=== PATIENT | male | born 1935 | race Caucasian/White ===

== ENCOUNTER → 2017-01-31 | Outpatient (CLI) | payer MEDICARE ==
[2017-01-31 11:12] LABS: ALT 18 U/L (21-72); AST 14 U/L (17-59); Cholesterol 172 mg/dL (<200); HDL Cholesterol 46 mg/dL (40-60)
== END | disposition home or self-care (01) ==
LOC: LABWHC1 10:07
PROVIDERS: ATTEND Internal Medicine Cardiovascular Disease
DX: E78.2 Mixed hyperlipidemia (principal)
CPT/HCPCS: 36415; 80061; 84450; 84460

== ENCOUNTER → 2018-03-30 | Outpatient (CLI) | payer MEDICARE ==
--- NOTE | 2018-03-30 14:26 | ECHOS ---
STRESS ECHOCARDIOGRAM INDICATIONS: Dizzy BASELINE HEART RATE: 63 BASELINE BLOOD PRESSURE: 145/62 MAXIMUM HEART RATE: 112 MAXIMUM BLOOD PRESSURE: 182/70 85% MPHR: 119 100% MPHR: 140 METS: 4.4 MAXIMUM STAGE REACHED: I TOTAL EXERCISE TIME: 3:49 CLINICAL INFORMATION: Baseline rhythm is sinus mechanism, rate of 63, left axis deviation, intraventricular conduction delay. Baseline blood pressure 145/62 mmHg. Patient exercised on Isael protocol for 3 minutes, 49 seconds reaching peak rate 112 beats per minute which is equal to 80% maximum predicted heart rate. Peak blood pressure 182/70 mmHg. Test was terminated due to fatigue. There was no chest pain. Electrocardiograph monitoring revealed no evidence of diagnostic ischemic ST deviation. FINDINGS: Baseline echocardiogram revealed normal wall motion. At peak exercise, there was normal wall motion augmentation with no hypokinesis or dyskinesis. CONCLUSION: 1. Nondiagnostic electrocardiograph stress testing secondary to baseline EKG abnormality. 2. Decreased exercise tolerance. 3. At the rate achieved, there was no evidence of stress-induced ischemia, although this is a nondiagnostic test secondary to the inability to achieve 85% maximum predicted heart rate. MMODL / IJN: [id number] /
== END | disposition home or self-care (01) ==
LOC: RADNMMAIN 08:58
PROVIDERS: ATTEND Family Medicine
DX: R94.31 Abnormal electrocardiogram [ECG] [EKG] (principal)
CPT/HCPCS: 93351

== ENCOUNTER → 2019-10-04 | Outpatient (CLI) | payer MEDICARE ==
[2019-10-04 17:05] LABS: Chol/HDL Ratio 2.53; LDL Cholesterol,Calculated 43.6 mg/dL (0.0-131.0); VLDL Calculation 14.4 mg/dL (5.00-40.00)
== END | disposition home or self-care (01) ==
LOC: LABWHC1 09:04
PROVIDERS: ATTEND Internal Medicine Cardiovascular Disease
DX: E78.2 Mixed hyperlipidemia (principal)
CPT/HCPCS: 36415; 80061; 84450; 84460

== ENCOUNTER → 2023-02-09 | Outpatient (CLI) | payer MEDICARE ==
[2023-02-09 17:40] LABS: ALT 9 U/L (10-49); AST 25 U/L (14-35); LDL Cholesterol,Calculated 44.4 mg/dL (0.0-131.0); VLDL Calculation 12.78 mg/dL (5.00-40.00)
== END | disposition home or self-care (01) ==
LOC: LABWHC1 10:58
PROVIDERS: ATTEND Internal Medicine Cardiovascular Disease
DX: E78.2 Mixed hyperlipidemia (principal)
CPT/HCPCS: 36415; 80061; 84450; 84460

== ENCOUNTER 2024-08-16 19:29 | Inpatient (IN) | payer MEDICARE ==
[2024-08-16 20:46] LABS: Basophils # (A) 0.03 10*3/uL (0.00-0.10); Basophils % (A) 0.2 %; HCT 34.8 % (39.6-50.0); Lymphocytes # (A) 0.41 10*3/uL (0.90-5.00); Lymphocytes % (A) 2.8 %; MCH 30.5 pg (27.0-32.0); MCHC 31.6 g/dL (32.0-37.0); MCV 96.4 fL (80.0-97.0); Mean Platelet Volume 9.9 fL (9.5-12.2); Monocytes # (A) 0.94 10*3/uL (0.20-1.00); Monocytes % (A) 6.3 %; Neutrophils # (A) 13.39 10*3/uL (1.80-7.70); Platelet Count 314 10*3/uL (140-440); RBC 3.61 10*6/uL (4.40-5.60); RDW 13.8 % (11.5-14.5); WBC 14.88 10*3/uL (4.50-10.00)
--- NOTE | 2024-08-16 20:46 | ED ---
General Adult HPI - General Chief complaint: Weakness Stated complaint: Weakness Time Seen by Provider: 08/16/24 19:32 Source: patient, EMS Mode of arrival: EMS Limitations: no limitations - History of Present Illness Initial comments: Dictation was produced using [employer] dictation software. please excuse any grammatical, word or spelling errors. Chief Complaint: 88-year-old male presents with weakness and fall History of Present Illness: Patient is a 8-year-old male presents emergency department after multiple falls today. He is presents to the ER for significant weakness. He lives at home with his brother. States that he fell twice today. They report that whenever he falls it is difficult to take him up. Sue is unsure if patient takes any anticoagulation medications or antiplatelet medications. Patient denies any symptoms at this time. Family states that he becomes shaky right before he falls. The ROS documented in this emergency department record has been reviewed and confirmed by me. Those systems with pertinent positive or negative responses have been documented in the HPI. All other systems are other negative and/or noncontributory. - Related Data Home Medications Medication Instructions Recorded Confirmed Aspirin EC [Ecotrin Low Dose] 81 mg PO DAILY 04/26/21 06/07/22 Atorvastatin [Lipitor] 40 mg PO DAILY 04/26/21 06/07/22 Enalapril [Vasotec] 10 mg PO DAILY 04/26/21 06/07/22 Gabapentin [Neurontin] 300 mg PO QID 04/26/21 06/07/22 HYDROcodone/APAP 10-325MG [[place] 1 tab PO Q6H PRN 04/26/21 06/07/22 10-325] Insulin Aspart [NovoLOG Flexpen] 11 units SQ AC-TID 04/26/21 06/07/22 Insulin Glargine,Hum.rec.anlog 20 units SQ DAILY 04/26/21 06/07/22 [Lantus Solostar Pen] Metoprolol Tartrate [Lopressor] 25 mg PO BID 04/26/21 06/07/22 Nitroglycerin Sl Tabs [Nitrostat] 0.4 mg SUBLINGUAL Q5M PRN 04/26/21 06/07/22 amLODIPine [Norvasc] 10 mg PO DAILY 04/26/21 06/07/22 glipiZIDE XL [Glucotrol XL] 10 mg PO DAILY 04/26/21 06/07/22 Albuterol Inhaler [Ventolin Hfa 2 puff INHALATION RT-QID PRN 06/07/22 06/07/22 Inhaler] Terbinafine [LamISIL] 250 mg PO DAILY 06/07/22 06/07/22 Previous Rx's Medication Instructions Recorded Ipratropium-Albuterol Nebulize 3 ml INHALATION RT-QID #120 each 06/11/22 [Duoneb 0.5 mg-3 mg/3 ml Soln] cefuroxime axetiL [Ceftin] 500 mg PO BID 7 Days #14 tab 06/11/22 Allergies Allergy/AdvReac Type Severity Reaction Status Date / Time No Known Allergies Allergy Verified 06/07/22 11:02 Review of Systems ROS Statement: Those systems with pertinent positive or pertinent negative responses have been documented in the HPI. ROS Other: All systems not noted in ROS Statement are negative. Past Medical History Past Medical History: Coronary Artery Disease (CAD), COPD, Diabetes Mellitus, Deep Vein Thrombosis (DVT), Hypertension, Myocardial Infarction (MA) Additional Past Medical History / Comment(s): unsure of exact date of MA and cardiac stent. Last Myocardial Infarction Date:: 2011 History of Any Multi-Drug Resistant Organisms: None Reported Past Surgical History: Heart Catheterization With Stent Past Anesthesia/Blood Transfusion Reactions: No Reported Reaction Date of Last Stent Placement:: 2011 Past Psychological History: Anxiety, Depression Smoking Status: Current some day smoker Past Alcohol Use History: None Reported Past Drug Use History: None Reported - Past Family History Father Additional Family Medical History / Comment(s): from prostate CA Brother(s) Family Medical History: AICD/Pacemaker Additional Family Medical History / Comment(s): prostate CA, 1 foot of colon removed r/t diverticulitis, triple bypass Mother Family Medical History: COPD, Dementia, Diabetes Mellitus Additional Family Medical History / Comment(s): of complications from DM General Exam - General Exam Comments Initial Comments: PHYSICAL EXAM: General Impression: Alert and oriented x3, not in acute distress HEENT: Normocephalic atraumatic, extra-ocular movements intact, pupils equal and reactive to light bilaterally, mucous membranes moist. Cardiovascular: Heart regular rate and rhythm Chest: Able to complete full sentences, no retractions, no tachypnea Abdomen: abdomen soft, non-tender, non-distended, no organomegaly Musculoskeletal: Pulses present and equal in all extremities, no peripheral edema Motor: no focal deficits noted Neurological: CN II-XII grossly intact, no focal motor or sensory deficits noted Skin: Abrasion to the left elbow Psych: Normal affect and mood Limitations: no limitations Course Vital Signs 08/16/24 08/16/24 08/16/24 19:30 19:54 21:00 Temperature 98.5 F Pulse Rate 79 75 80 Respiratory 18 18 18 Rate Blood Pressure 103/59 117/64 121/64 O2 Sat by Pulse 92 L 94 L 93 L Oximetry EKG Findings - EKG Comments: EKG Findings:: My EKG interpretation: Ventricular rate 76, sinus rhythm, right bundle branch block,. MS intervals 218, QRS 140, QTc 427. No MS prolongation, no QTC prolongation, no ST or T-wave changes noted. Overall, this EKG is unremarkable Medical Decision Making - Medical Decision Making Was pt. sent in by a medical professional or institution (, PA, POKER MANAGER, urgent care, hospital, or intermediate...) When possible be specific @ -No Did you speak to anyone other than the patient for history (EMS, parent, family, police, friend...)? What history was obtained from this source @ -Family at bedside as described above Did you review nursing and triage notes (agree or disagree)? Why? @ -I reviewed and agree with nursing and triage notes Were old charts reviewed (outside hosp., previous admission, EMS record, old EKG, old radiological studies, urgent care reports/EKG's, intermediate records)? Report findings @ -No old charts were reviewed Differential Diagnosis (chest pain, altered mental status, abdominal pain women, abdominal pain men, vaginal bleeding, musculoskeletal, weakness, fever, dyspnea, syncope, headache, dizziness, GI bleed, back pain, seizure, CVA, palpatations, mental health)? @ -Differential Dyspnea: Coronary syndrome, arrhythmia, tamponade, asthma, COPD, pulmonary embolism, pneumonia, pneumothorax, pulmonary effusion, anaphylaxis, diabetic ketoacidosis, flailed chest, pulmonary contusion, diaphragmatic rupture, anemia, ne uromuscular, this is not meant to be an all-inclusive list. EKG interpreted by me (3pts min.). @ -See above X-rays interpreted by me (1pt min.). @ -Chest x-ray shows pulmonary edema. Pelvis x-ray is unremarkable CT interpreted by me (1pt min.). @ -CT brain shows no acute processes U/S interpreted by me (1pt. min.). @ -None done What testing was considered but not performed or refused? (CT, X-rays, U/S, labs)? Why? @ -None What meds were considered but not given or refused? Why? @ -None Was smoking cessation discussed for >3mins.? @ -No Were there social determinants of health that impacted care today? How? (Homelessness, low income, unemployed, alcoholism, drug addiction, transport ation, low edu. Level, literacy, decrease access to med. care, longterm, rehab)? @ -No Was there de-escalation of care discussed even if they declined (Discuss DNR or withdrawal of care, Hospice)? DNR status @ -No What co-morbidities impacted this encounter? (DM, HTN, Smoking, COPD, CAD, Cancer, CVA, ARF, Chemo, Hep., AIDS, mental health diagnosis, sleep apnea, morbid obesity)? @ -Coronary artery disease, MA Was patient admitted / discharged? Hospital course, mention meds given and route, prescriptions, significant lab abnormalities, going to OR and other pertinent info. @ -88-year-old male with history of cardiac disease presents to the ER for weakness and falls. Patient well-appearing at the bedside suffered a minor abrasion to his left elbow. Patient otherwise in no acute distress physical examination is otherwise benign. Vital signs show some mild hypoxic respiratory failure patient maintained on 3 L nasal cannula. Laboratory evaluation obtained. CBC is unremarkable. Metabolic panel shows elevated BUN to creatinine ratio, troponin of 0.720. EKG shows no signs of ischemia or infarction. Patient reevaluated bedside well-appearing with no complaints. Patient will be admitted for elevated troponin, CHF and grave disability Did you discuss the management of the patient with other professionals (professionals i.e. , PA, POKER MANAGER, lab, RT, psych nurse, child welfare social worker, lawyer criminal, teacher, correction officer reformatory, correctional casework specialist)? Give summary @ -Case discussed with hospitalist for admission Was critical care preformed (if so, how long)? @ -Yes, 33 minutes for hypoxic respiratory failure Undiagnosed new problem with uncertain prognosis? @ -No Drug Therapy requiring intensive monitoring for toxicity (Heparin, Nitro, Insulin, Cardizem)? @ -No Were any procedures done? @ -No Diagnosis/symptom? Acute, or Chronic, or Acute on Chronic? Uncomplicated (without systemic symptoms) or Complicated (systemic symptoms)? @ -Gravely disabled, CHF, Side effects of treatment? @ -No Exacerbation, Progression, or Severe Exacerbation? @ -No Poses a threat to life or bodily function? How? (Chest pain, USA, MA, pneumonia, PE, COPD, DKA, ARF, appy, cholecystitis, CVA, Diverticulitis, Homicidal, Suicidal, threat to staff... and all critical care pts) @ -yes - Lab Data Result diagrams: 08/16/24 20:39 08/16/24 20:39 Lab Results 08/16/24 08/16/24 08/16/24 Range/Units 20:39 20:39 20:39 WBC 14.88 H (4.50-10.00) 10*3/uL RBC 3.61 L (4.40-5.60) 10*6/uL Hgb 11.0 L (13.0-17.0) g/dL Hct 34.8 L (39.6-50.0) % MCV 96.4 (80.0-97.0) fL MCH 30.5 (27.0-32.0) pg MCHC 31.6 L (32.0-37.0) g/dL Plt Count 314 (140-440) 10*3/uL MPV 9.9 (9.5-12.2) fL Immature Gran % (Auto) 0.7 % Neutrophils % 90.0 % Lymphocytes % 2.8 % Monocytes % 6.3 % Eosinophils % 0.0 % Basophils % 0.2 % Immature Gran # 0.11 H (0.00-0.04) 10*3/uL Neutrophils # 13.39 H (1.80-7.70) 10*3/uL Lymphocytes # 0.41 L (0.90-5.00) 10*3/uL Monocytes # 0.94 (0.20-1.00) 10*3/uL Eosinophils # 0.00 L (0.04-0.35) 10*3/uL Basophils # 0.03 (0.00-0.10) 10*3/uL PT 10.8 (10.0-12.5) sec INR 1.0 (<1.2) APTT 22.3 (22.0-30.0) sec Sodium 137 (137-145) mmol/L Potassium 4.5 (3.5-5.1) mmol/L Chloride 100 (98-107) mmol/L Carbon Dioxide 25 (22-30) mmol/L Anion Gap 12 mmol/L BUN 51 H (9-20) mg/dL Creatinine 1.12 (0.66-1.25) mg/dL Est GFR (CKD-EPI)AfAm 69 (>60 ml/min/1.73 sqM) Est GFR (CKD-EPI)NonAf 59 (>60 ml/min/1.73 sqM) Glucose 180 H (74-99) mg/dL Calcium 8.8 (8.4-10.2) mg/dL Magnesium 2.5 H (1.6-2.3) mg/dL Total Bilirubin 0.8 (0.2-1.3) mg/dL AST 46 (17-59) U/L ALT 23 (4-49) U/L Alkaline Phosphatase 164 H (38-126) U/L Troponin I (0.000-0.034) ng/mL Total Protein 6.2 L (6.3-8.2) g/dL Albumin 3.4 L (3.5-5.0) g/dL // Range/Units 20:39 WBC (4.50-10.00) 10*3/uL RBC (4.40-5.60) 10*6/uL Hgb (13.0-17.0) g/dL Hct (39.6-50.0) % MCV (80.0-97.0) fL MCH (27.0-32.0) pg MCHC (32.0-37.0) g/dL Plt Count (140-440) 10*3/uL MPV (9.5-12.2) fL Immature Gran % (Auto) % Neutrophils % % Lymphocytes % % Monocytes % % Eosinophils % % Basophils % % Immature Gran # (0.00-0.04) 10*3/uL Neutrophils # (1.80-7.70) 10*3/uL Lymphocytes # (0.90-5.00) 10*3/uL Monocytes # (0.20-1.00) 10*3/uL Eosinophils # (0.04-0.35) 10*3/uL Basophils # (0.00-0.10) 10*3/uL PT (10.0-12.5) sec INR (<1.2) APTT (22.0-30.0) sec Sodium (137-145) mmol/L Potassium (3.5-5.1) mmol/L Chloride (98-107) mmol/L Carbon Dioxide (22-30) mmol/L Anion Gap mmol/L BUN (9-20) mg/dL Creatinine (0.66-1.25) mg/dL Est GFR (CKD-EPI)AfAm (>60 ml/min/1.73 sqM) Est GFR (CKD-EPI)NonAf (>60 ml/min/1.73 sqM) Glucose (74-99) mg/dL Calcium (8.4-10.2) mg/dL Magnesium (1.6-2.3) mg/dL Total Bilirubin (0.2-1.3) mg/dL AST (17-59) U/L ALT (4-49) U/L Alkaline Phosphatase (38-126) U/L Troponin I 0.720 H* (0.000-0.034) ng/mL Total Protein (6.3-8.2) g/dL Albumin (3.5-5.0) g/dL Disposition Clinical Impression: CHF (congestive heart failure), Gravely disabled Disposition: ADMITTED IP TO THIS HOSP Condition: Fair Referrals: Dante Koch MD [Primary Care Provider] - 1-2 days Decision Time: 22:32
[2024-08-16 20:55] LABS: Partial Thromboplastin Time 22.3 sec (22.0-30.0); Prothrombin Time 10.8 sec (10.0-12.5)
[2024-08-16 20:58] LABS: ALT 23 U/L (4-49); AST 46 U/L (17-59); African American GFR (CKD) 69 (>60 ml/min/1.73 sqM); Albumin 3.4 g/dL (3.5-5.0); Alkaline Phosphatase 164 U/L (38-126); Anion Gap 12 mmol/L; Blood Urea Nitrogen 51 mg/dL (9-20); Calcium 8.8 mg/dL (8.4-10.2); Carbon Dioxide 25 mmol/L (22-30); Chloride 100 mmol/L (98-107); Glucose 180 mg/dL (74-99); Magnesium 2.5 mg/dL (1.6-2.3); Non-African American GFR(CKD) 59 (>60 ml/min/1.73 sqM); Potassium 4.5 mmol/L (3.5-5.1); Sodium 137 mmol/L (137-145); Total Bilirubin 0.8 mg/dL (0.2-1.3); Total Protein 6.2 g/dL (6.3-8.2)
--- NOTE | 2024-08-16 21:07 | CT ---
EXAMINATION TYPE: CT brain ashliine wo con DATE OF EXAM: 08/16/2024 8:57 PM COMPARISON: None. CLINICAL INDICATION: Male, 88 years old with history of fall, generalized weakness and CECE. 2 falls t yung, denies hitting head., pain, fall x2 TECHNIQUE: CT of the brain is performed utilizing 3 mm thick sections through the posterior fossa and 3 mm thick sections through the remaining calvarium. Study is performed within 24 hours of arrival to the hospital. Contrast used: mL of , (none if empty) CT DLP: 1349.7 mGycm, Automated exposure control for dose reduction was used. FINDINGS: No abnormal hyperdensity is present to suggest an acute intracranial hemorrhage. No mass lesion is evident. No acute infarcts are evident. Mild periventricular white matter hypodensity is present likely on th e basis of chronic white matter ischemic changes Ventricles and sulci are appropriate for the patient age. Paranasal sinuses and mastoid air cells within the [id number] are clear. IMPRESSIONS: 1. No acute intracranial process. Follow-up MRI can be performed as clinically indicated. 2. Chronic appearing mild periventricular white matter ischemic type changes with age-related atrophy . CT cervical spine. COMPARISON: None TECHNIQUE: CT of the cervical spine is performed in the axial plane at 2 mm thick sections. Reconstr ucted images in the coronal, and sagittal plane are reviewed on the computer. FINDINGS: No acute fractures are evident. There is a retrolisthesis of C3 on C4. Minimal anterolisthesis of C4 on C5 may be present. There is loss of disc height at C2-3 C3-4. Vacuum phenomenon is present C4-5. There is narrowing of t he C5 disc height. Vertebral body heights are preserved. No spinal canal stenosis is evident. No neural foraminal stenosis is evident. IMPRESSION: 1. Degenerative disc changes through the cervical spine. 2. Mild retrolisthesis of C3 on C4. Minimal anterolisthesis of C4 on C5 may be present. 3. No acute osseous abnormality cervical spine. [facility], , 08/16/2024 9:04 PM
--- NOTE | 2024-08-16 22:12 | XR ---
EXAMINATION TYPE: XR chest 2V DATE OF EXAM: 08/16/2024 9:19 PM COMPARISON: 06/10/2022 CLINICAL INDICATION: Male, 88 years old with history of fall, TECHNIQUE: XR chest 2V view(s) obtained. FINDINGS: The heart size is enlarged. The pulmonary vasculature is prominent. Right lung infiltrate is present. Small to moderate right pleural effusion is present.. Findings are likely related to congestive heart failure. Consider pneumonia. IMPRESSION: 1. Clinical correlation for congestive heart failure. Pulmonary edema may be present. [facility], , 08/16/2024 10:09 PM
--- NOTE | 2024-08-16 22:14 | XR ---
EXAMINATION TYPE: XR pelvis AP view DATE OF EXAM: 08/16/2024 9:19 PM COMPARISON: None. CLINICAL INDICATION: Male, 88 years old with history of fall, pain TECHNIQUE: AP view(s) obtained. FINDINGS: Femoral heads articulate with the acetabulum. Symphysis pubis and sacroiliac joints are intact. Some degenerative changes at sacroiliac joints. Normal bowel gas is present. Vascular calcifications noted . IMPRESSION: 1. No acute osseous abnormalities AP pelvis [facility], , 08/16/2024 10:11 PM
[2024-08-16] MEDS ORDERED: NALOXONE 0.4 MG/ML 1 ML VIAL IV PRN (22:33)
[2024-08-16 23:27] LABS: Amorphous Sediment,Urine Rare /hpf; Appearance,Urine Cloudy (Clear); Bilirubin,Urine Negative (Negative); Blood,Urine Trace (Negative); Color,Urine Yellow; Glucose,Urine (UA) Negative (Negative); Hyaline Casts,Urine 74 /lpf (0-2); Ketones,Urine Negative (Negative); Leukocyte Esterase,Urine Negative (Negative); Mucus,Urine Rare /hpf; Nitrite,Urine Negative (Negative); PH, Urine 5.5 (5.0-8.0); Protein,Urine 1+ (Negative); RBC,Urine 9 /hpf (0-5); Specific Gravity,Urine 1.026 (1.001-1.035); Squamous Epithelial Cell,Urine <1 /hpf (0-4); WBC,Urine 1 /hpf (0-5)
[2024-08-16] MEDS: SODIUM CHLORIDE 0.9% 1,000 ML IV SCH (23:27)
[2024-08-16] MEDS: FUROSEMIDE 10 MG/ML 4 ML VIAL IV STA (23:31)
[2024-08-17 06:05] LABS: Glucose,Whole Blood 161 mg/dL (70-110)
[2024-08-17] MEDS ORDERED: DEXTROSE 50% SYRINGE 50 ML IVP PRN ×2 (08:27)
[2024-08-17] MEDS ORDERED: ALBUTEROL NEBULIZED 2.5 MG/3 ML INHALATION PRN (08:37)
[2024-08-17] MEDS: GABAPENTIN 300 MG CAP PO SCH (09:05)
[2024-08-17] MEDS: METOPROLOL TARTRATE 25 MG TAB PO SCH (09:05)
[2024-08-17] MEDS: ATORVASTATIN 40 MG TAB PO SCH (09:05)
[2024-08-17] MEDS: ASPIRIN 81 MG PO SCH (09:05)
[2024-08-17] MEDS: FUROSEMIDE 10 MG/ML 4 ML VIAL IV SCH (09:05)
[2024-08-17] MEDS: ENOXAPARIN 40 MG/0.4 ML SYRINGE SQ SCH (09:06)
[2024-08-17] MEDS: lisinopriL 20 MG TAB PO SCH (09:06)
[2024-08-17] MEDS: amLODIPine 10 MG TAB PO SCH (09:06)
--- NOTE | 2024-08-17 10:55 | P.CRDCN ---
History of Present Illness Consult date: 08/17/24 Reason for Consult (text): Heart failure, elevated troponin History of present illness: This is an 88-year-old male patient of Dr. Vasquez with past medical history of carotid artery stenosis, coronary artery disease, hypertension, dyslipidemia. We have been asked to evaluate the patient for heart failure and elevated troponins. Patient presented to the emergency center due to multiple falls, generalized weakness. Patient apparently had 2 falls yesterday and is very difficult for him to get up off the floor. He is having some shortness of breath this morning. Blood pressure 117/69, heart rate 108, pulse ox 92% on 5 L nasal cannula. Patient has been started on IV Lasix 40 mg every 12 hours. -EKG: Sinus rhythm with right bundle branch block. -Chest x-ray: Clinical correlation for heart failure. Pulmonary edema may be present. -Pelvis x-ray: No acute process. -CT brain and cervical spine showed no acute intracranial process and degenerative disc changes of the cervical spine. No acute osseous abnormality. -Laboratory studies: WBC 14.8, hemoglobin 11, sodium 137, potassium 4.5, BUN 51 creatinine 1.12. Troponin 0.720. Alkaline phosphatase 164. -Home cardiac medications: Amlodipine 10 mg daily, atorvastatin 40 mg daily, e nalapril 10 mg twice daily, Lasix 20 mg daily, metoprolol tartrate 25 mg twice daily. -Echocardiogram performed 02/09/2022 in the office revealed EF of 55 to 60% with grade 2 diastolic dysfunction. Moderate concentric left ventricular hypertrophy. Mild mitral regurgitation. Mild to moderate tricuspid regurgitation. PASP 42 mmHg. Mild pulmonic regurgitation. -Lexiscan Cardiolite stress test performed in the office on 06/19/2020 revealed negative stress test by EKG criteria. Abnormal nuclear scan showing evidence of prior apical myocardial infarction with preserved LV function without any i schemia. -Cardiac catheterization performed 2008 revealed total occlusion of the mid LAD with very late filling of the mid left anterior descending coronary artery. Diffuse disease in the nondominant right coronary artery and also in the circumflex coronary artery which had moderate disease but noncritical. The left ventricular function was not assessed. Patient subsequently underwent stenting of the totally occluded mid left anterior descending coronary artery in the setting of a subacute myocardial infarction. Review Of Systems: At the time of my exam: CONSTITUTIONAL: Denies fever or chills. Reports falls, generalized weakness. HEENT: Denies blurred vision, vision changes, or eye pain. Denies hemoptysis CARDIOVASCULAR: Denies chest pain. Denies orthopnea. Denies PND. Denies palpita tions RESPIRATORY: Reports shortness of breath. GASTROINTESTINAL: Denies abdominal pain. Denies nausea or vomiting. HEMATOLOGIC: Denies bleeding disorders. GENITOURINARY: Denies any blood in urine. SKIN: Denies puritis. Denies rash. Physical examination: Gen: This is 88-year-old male in no acute respiratory distress. VS: reviewed HEENT: Head is atraumatic, normocephalic. Pupils equal, round. Sclerae is anicteric. NECK: Supple. No JVD. LUNGS: Clear to auscultation. No wheezes or rhonchi. No intercostal retractions. HEART: Regular rate and rhythm. No murmur. ABDOMEN: Soft No tenderness. EXTREMITIES: No pedal edema. No calf tenderness. NEUROLOGICAL: Patient is awake, alert to person and place. Assessment: Generalized weakness with multiple falls Acute on chronic diastolic heart failure History of coronary artery disease with previous stent to the LAD in 2008 Carotid artery stenosis bilaterally Hypertension Dyslipidemia Plan: Resume patient's home cardiac medications Continue patient on IV Lasix 40 mg every 12 hours Monitor BENOIT, daily weights, electrolytes and renal function Obtain BNP Repeat troponin Obtain D-dimer Obtain 2-D echocardiogram and Doppler study to assess cardiac structure and function Further recommendations to follow based upon clinical course Thank you kindly for this consultation. Nurse practitioner note has been reviewed, I agree with documented findings and plan of care. Patient was seen and examined. Past Medical History Past Medical History: Coronary Artery Disease (CAD), COPD, Diabetes Mellitus, Deep Vein Thrombosis (DVT), Hypertension, Myocardial Infarction ([place]) Additional Past Medical History / Comment(s): unsure of exact date of [place] and cardiac stent. Last Myocardial Infarction Date:: 2011 History of Any Multi-Drug Resistant Organisms: None Reported Past Surgical History: Heart Catheterization With Stent Past Anesthesia/Blood Transfusion Reactions: No Reported Reaction Date of Last Stent Placement:: 2011 Past Psychological History: Anxiety, Depression Smoking Status: Current some day smoker Past Alcohol Use History: None Reported Past Drug Use History: None Reported - Past Family History Father Additional Family Medical History / Comment(s): from prostate CA Brother(s) Family Medical History: AICD/Pacemaker Additional Family Medical History / Comment(s): prostate CA, 1 foot of colon removed r/t diverticulitis, triple bypass Mother Family Medical History: COPD, Dementia, Diabetes Mellitus Additional Family Medical History / Comment(s): of complications from DM Medications and Allergies Home Medications Medication Instructions Recorded Confirmed Type Atorvastatin [Lipitor] 40 mg PO DAILY 04/26/21 08/17/24 History Enalapril [Vasotec] 10 mg PO BID 04/26/21 08/17/24 History Gabapentin [Neurontin] 300 mg PO QID 04/26/21 08/17/24 History HYDROcodone/APAP 10-325MG [[place] 1 tab PO Q6H PRN 04/26/21 08/17/24 History 10-325] Insulin Aspart [NovoLOG Flexpen] 11 units SQ AC-TID 04/26/21 08/17/24 History Insulin Glargine,Hum.rec.anlog 20 units SQ DAILY 04/26/21 08/17/24 History [Lantus Solostar Pen] Metoprolol Tartrate [Lopressor] 25 mg PO BID 04/26/21 08/17/24 History amLODIPine [Norvasc] 10 mg PO DAILY 04/26/21 08/17/24 History Albuterol Inhaler [Ventolin Hfa 2 puff INHALATION RT-QID 06/07/22 08/17/24 History Inhaler] Albuterol Nebulized [Ventolin 2.5 mg INHALATION RT-Q6H PRN 08/17/24 08/17/24 History Nebulized] Furosemide [Lasix] 20 mg PO DAILY 08/17/24 08/17/24 History glipiZIDE [Glucotrol] 5 mg PO AC-BID 08/17/24 08/17/24 History Allergies Allergy/AdvReac Type Severity Reaction Status Date / Time No Known Allergies Allergy Verified 08/17/24 10:15 Physical Exam Vitals: Vital Signs Temp Pulse Pulse Resp BP BP Pulse Ox 08/17/24 09:55 95 08/17/24 09:01 98.2 F 108 H 21 117/69 92 L 08/17/24 08:00 108 H 21 08/17/24 04:30 99.8 F H 111 H 18 135/65 93 L 08/17/24 02:34 105 H 18 04/25/25 00:22 98.3 F 105 H 18 146/60 93 L 08/16/24 23:55 93 18 93 L 08/16/24 23:24 85 18 144/76 92 L 08/16/24 21:00 80 18 121/64 93 L 08/16/24 19:54 75 18 117/64 94 L 08/16/24 19:30 98.5 F 79 18 103/59 92 L Intake and Output 08/16/24 08/17/24 08/17/24 22:59 06:59 14:59 Output Total 800 Balance -800 Output: Urine 800 Other: Voiding Method External Catheter External Catheter Weight 70.307 kg 68.5 kg Results 08/16/24 20:39 08/16/24 20:39 Cardiac Enzymes 08/16/24 08/16/24 Range/Units 20:39 20:39 AST 46 (17-59) U/L Troponin I 0.720 H* (0.000-0.034) ng/mL Coagulation 08/16/24 Range/Units 20:39 PT 10.8 (10.0-12.5) sec APTT 22.3 (22.0-30.0) sec CBC 08/16/24 Range/Units 20:39 WBC 14.88 H (4.50-10.00) 10*3/uL RBC 3.61 L (4.40-5.60) 10*6/uL Hgb 11.0 L (13.0-17.0) g/dL Hct 34.8 L (39.6-50.0) % Plt Count 314 (140-440) 10*3/uL Comprehensive Metabolic Panel 08/16/24 Range/Units 20:39 Sodium 137 (137-145) mmol/L Potassium 4.5 (3.5-5.1) mmol/L Chloride 100 (98-107) mmol/L Carbon Dioxide 25 (22-30) mmol/L BUN 51 H (9-20) mg/dL Creatinine 1.12 (0.66-1.25) mg/dL Glucose 180 H (74-99) mg/dL Calcium 8.8 (8.4-10.2) mg/dL AST 46 (17-59) U/L ALT 23 (4-49) U/L Alkaline Phosphatase 164 H (38-126) U/L Total Protein 6.2 L (6.3-8.2) g/dL Albumin 3.4 L (3.5-5.0) g/dL Current Medications Generic Name Dose Route Start Last Admin Trade Name Freq PRN Reason Stop Dose Admin Hydrocodone Bitart/Acetaminophen 1 each 08/17/24 08:37 Hydrocodone/Apap 10-325mg 1 Each Tab PO Q6H PRN Pain Albuterol Sulfate 2.5 mg 08/17/24 08:37 Albuterol Nebulized 2.5 Mg/3 Ml INHALATION RT-QID PRN Shortness Of Breath Albuterol/Ipratropium 3 ml 08/17/24 12:00 Ipratropium-Albuterol 3 Ml Neb INHALATION RT-QID BUDDY Amlodipine Besylate 10 mg 08/17/24 09:00 08/17/24 09:06 Amlodipine 10 Mg Tab PO 10 mg DAILY BUDDY Administration Aspirin 81 mg 08/17/24 09:00 08/17/24 09:05 Aspirin 81 Mg PO 81 mg DAILY BUDDY Administration Atorvastatin Calcium 40 mg 08/17/24 09:00 08/17/24 09:05 Atorvastatin 40 Mg Tab PO 40 mg DAILY BUDDY Administration Dextrose/Water 25 ml 08/17/24 08:27 Dextrose 50% Syringe 50 Ml IVP PER PROTOCOL PRN Hypoglycemia Protocol Dextrose/Water 50 ml 08/17/24 08:27 Dextrose 50% Syringe 50 Ml IVP PER PROTOCOL PRN Hypoglycemia Protocol Enoxaparin Sodium 40 mg 08/17/24 09:00 08/17/24 09:06 Enoxaparin 40 Mg/0.4 Ml Syringe SQ 40 mg DAILY BUDDY Administration Furosemide 40 mg 08/17/24 09:00 08/17/24 09:05 Furosemide 10 Mg/Ml 4 Ml Vial IV 40 mg Q12HR BUDDY Administration Gabapentin 300 mg 08/17/24 09:00 08/17/24 09:05 Gabapentin 300 Mg Cap PO 300 mg QID BUDDY Administration Insulin Glargine 10 unit 08/17/24 21:00 Insulin Glargine (Lantus) 100 Unit/Ml Syr SQ HS BUDDY Insulin Human Lispro 0 unit 08/17/24 12:30 Insulin Lispro (Humalog) 100 Unit/Ml 10 Ml Vl SQ ACHS BUDDY Protocol Lisinopril 20 mg 08/17/24 09:00 08/17/24 09:06 Lisinopril 20 Mg Tab PO 20 mg DAILY BUDDY Administration Metoprolol Tartrate 25 mg 08/17/24 09:00 08/17/24 09:05 Metoprolol Tartrate 25 Mg Tab PO 25 mg BID BUDDY Administration Naloxone HCl 0.2 mg 08/16/24 22:33 Naloxone 0.4 Mg/Ml 1 Ml Vial IV Q2M PRN Opioid Reversal Intake and Output 08/16/24 08/17/24 08/17/24 22:59 06:59 14:59 Output Total 800 Balance -800 Output: Urine 800 Other: Voiding Method External Catheter External Catheter Weight 70.307 kg 68.5 kg 08/16/24 20:39 08/16/24 20:39
[2024-08-17 11:55] LABS: Glucose,Whole Blood 157 mg/dL (70-110)
--- NOTE | 2024-08-17 12:01 | CA ---
Transthoracic Echo Report Name: Gerardo Boone Age: 88 Gender: M : 1935 Exam Date: 08/17/2024 09:56 Exam Location: [facility] Ht (in): 70 Wt (lb): 151 Ordering Physician: Gadiel Barroso MD Attending/Referring Phys: Supervisor Pipe Manufacture Amaris Barrett RDCS Procedure CPT: Indications: Cardiomegaly Cardiac Hx: Technical Quality: Technically difficult study, Poor Contrast 1: Definity Total Dose (mL): 2 Contrast 2: Total Dose (mL): MEASUREMENTS (Male / Female) Normal Values 2D ECHO LV Diastolic Diameter PLAX 4.1 cm 4.2 - 5.9 / 3.9 - 5.3 cm LV Systolic Diameter PLAX 3.0 cm IVS Diastolic Thickness 1.5 cm 0.6 - 1.0 / 0.6 - 0.9 cm LVPW Diastolic Thickness 1.6 cm 0.6 - 1.0 / 0.6 - 0.9 cm LV Relative Wall Thickness 0.8 RV Internal Dim ED PLAX 1.8 cm LVOT Diameter 2.1 cm LA Systolic Diameter LX 4.9 cm 3.0 - 4.0 / 2.7 - 3.8 cm Aorta at Sinuses Diameter 3.6 cm M-MODE LA Systolic Diameter MM 3.4 cm AV Cusp Separation MM 0.9 cm DOPPLER AV Peak Velocity 123.5 cm/s AV Peak Gradient 6.1 mmHg AV Mean Velocity 91.5 cm/s AV Mean Gradient 3.8 mmHg AV Velocity Time Integral 26.4 cm LVOT Peak Velocity 67.9 cm/s LVOT Peak Gradient 1.8 mmHg LVOT Velocity Time Integral 12.6 cm LVOT Stroke Volume 44.8 cm??? LVOT Stroke Volume Index 24.2 ml/m??? LVOT Cardiac Index 2366.1 cm???/min???m??? AV Area Cont Eq vti 1.7 cm??? AV Area Cont Eq pk 2.0 cm??? MV Area PHT 3.6 cm??? Mitral E Point Velocity 130.5 cm/s Mitral A Point Velocity 95.6 cm/s Mitral E to A Ratio 1.4 MV Deceleration Time 210.2 ms TR Peak Velocity 345.6 cm/s TR Peak Gradient 47.8 mmHg Right Ventricular Systolic Press 67.2 mmHg FINDINGS Left Ventricle Left ventricular ejection fraction is estimated at 45-50 %. Moderately increased left ventricular wall thickness. Mildly decreased left ventricular systolic function with inferoapical hypokinesis.left ventricular cavity size normal. Right Ventricle Right ventricle not well visualized. Severe pulmonary hypertension. Right Atrium Right atrium not well visualized. Left Atrium Moderately increased left atrial diameter. Mitral Valve Structurally normal mitral valve. Mild mitral regurgitation. No mitral stenosis. Mild mitral annular calcification. Aortic Valve Aortic valve sclerosis. Mean PG 4 mmHg. ELIEL Planimerty 1.6 cm2. No aortic regurgitation. Tricuspid Valve Structurally normal tricuspid valve. Mild tricuspid regurgitation. No tricuspid stenosis. Pulmonic Valve Pulmonic valve not well visualized. Pericardium No pericardial or pleural effusion. Aorta Aorta at upper limits of normal. CONCLUSIONS Technically difficult study. Definity ECHO contrast used for improved visualization of the endocardial borders (inadequate visualization of two or more contiguous segments). Mildly impaired left ventricular systolic function with inferoapical hypokinesis Mild mitral and tricuspid regurgitation with severe pulmonary hypertension Previewed by: Dr. Brian Morris MD (Electronically Signed) Final Date: 17 August 2024 11:59
--- NOTE | 2024-08-17 12:41 | P.HPIM ---
History of Present Illness H&P Date: 08/17/24 History of present illness; Patient is 88-year-old male with CAD, carotid artery stenosis, hypertension, dyslipidemia, COPD who presents with multiple falls. Patient states that yesterday he had fallen backwards twice while attempting to turn. During time of fall he had no loss of consciousness or other symptoms including palpitations, chest pain, diaphoresis, dizziness. He does attest to some s hortness of breath which typically improves when he has up and ambulating, and at times can worsen while laying flat. He does not wear oxygen at home during the day, however wears nasal cannula 2.5 L oxygen while sleeping. He denies recent fever or coughing. No other complaints today. Spoke with the ER physician, patient admission was accepted by internal medicine service for treatment. REVIEW OF SYSTEMS: Pertinent positives and negatives noted in HPI. PHYSICAL EXAMINATION: Vitals reviewed GENERAL: Resting comfortably in bed. EYES: PERRL, no scleral injection or icterus. No vision loss HENT: Normocephalic, atraumatic, hearing grossly intact, moist mucous membranes NECK: No tracheal deviation, full range of motion. CARDIOVASCULAR: S1 and S2 present. No murmurs, rubs, or gallops. PULMONARY: Crackles present bilaterally, no wheezing or rhonchi ABDOMEN: Soft, nontender, nondistended. No palpable organomegaly. MUSCULOSKELETAL: No apparent joint swelling and deformities. EXTREMITIES: No apparent cyanosis, clubbing. 2+ pedal edema. NEUROLOGICAL: Alert and oriented. Gross neurological examination with no apparent focal deficits. SKIN: No apparent rashes. ER FINDINGS: Labs significant for WBC 14.8, hemoglobin 11, BUN 51, creatinine 1.12, glucose 180, magnesium 2.5, ALP 164, troponin 0.720, UA significant for protein 1+, trace blood, urine RBC 9, hyaline cast 74 EKG independently interpreted showed sinus rhythm heart rate of 76, QTc 427, RBBB, PVCs, no ST segment elevation or depression seen, no T-wave inversions seen. Chest x-ray done independently interpreted showed small to moderate right pleural effusion. Prominent pulmonary vasculature. Cardiomegaly. CT head independently interpreted showed no acute intracranial process. Chronic mild periventricular white matter ischemic changes. Pelvis x-ray no acute osseous abnormalities AP pelvis. Assessment and Plan: In summary, patient is 88-year-old male with CAD, carotid artery stenosis, hypertension, dyslipidemia, COPD who presents with multiple falls. #Acute on chronic systolic congestive heart failure #CHF preserved EF 45-50% #Severe pulmonary hypertension #Elevated troponin likely due to type II myocardial infarction in setting of CHF exacerbation #CAD with previous stent -Echocardiogram with preserved EF 45-50% -continue IV Lasix 40 mg BID -cardiac monitoring Repeat troponins -Initial weight 70.3 kg, daily weights -strict I/O, no more than 2L of total volume intake daily -Low sodium diet, <2g daily -Monitor BMP and Magnesium -(consider daily 10meq KCl) -consult cardiology, recommendations appreciated #Acute hypoxic respiratory failure likely secondary to CHF exacerbation #Leukocytosis, likely reactive #COPD Chest x-ray with small to moderate right pleural effusion Continue Lasix as above Maintain SPO2 greater than 92%, titrate down oxygen as tolerated #Multiple falls, likely secondary to hypoxemia from above Plan as above PT OT consulted #Diabetes mellitus, type 2 Holding oral medications Begin Accu-Cheks and low-dose sliding scale, monitor for hypoglycemia Resume home long-acting insulin 10 units Chronic Medical Conditions #Hypertension DVT ppx: Subq Lovenox 40 meq daily Code status: Full code F: P.o., fluid less than 2 L daily E: Replete as needed N: Heart healthy diet, sodium less than 2 g daily A: Ambulatory uses cane at baseline Anticipated discharge place: Pending clinical course Anticipated discharge time: Pending clinical course Dr. Saez seen patient with resident, present during exam, and agreed with findings. Dictation was produced using streamit dictation software. Please excuse any grammatical, word or spelling errors. Past Medical History Past Medical History: Coronary Artery Disease (CAD), COPD, Diabetes Mellitus, Deep Vein Thrombosis (DVT), Hypertension, Myocardial Infarction ([place]) Additional Past Medical History / Comment(s): unsure of exact date of [place] and cardiac stent. Last Myocardial Infarction Date:: 2011 History of Any Multi-Drug Resistant Organisms: None Reported Past Surgical History: Heart Catheterization With Stent Past Anesthesia/Blood Transfusion Reactions: No Reported Reaction Date of Last Stent Placement:: 2011 Past Psychological History: Anxiety, Depression Smoking Status: Current some day smoker Past Alcohol Use History: None Reported Past Drug Use History: None Reported - Past Family History Father Additional Family Medical History / Comment(s): from prostate CA Brother(s) Family Medical History: AICD/Pacemaker Additional Family Medical History / Comment(s): prostate CA, 1 foot of colon removed r/t diverticulitis, triple bypass Mother Family Medical History: COPD, Dementia, Diabetes Mellitus Additional Family Medical History / Comment(s): of complications from DM Medications and Allergies Home Medications Medication Instructions Recorded Confirmed Type Atorvastatin [Lipitor] 40 mg PO DAILY 04/26/21 08/17/24 History Enalapril [Vasotec] 10 mg PO BID 04/26/21 08/17/24 History Gabapentin [Neurontin] 300 mg PO QID 04/26/21 08/17/24 History HYDROcodone/APAP 10-325MG [[place] 1 tab PO Q6H PRN 04/26/21 08/17/24 History 10-325] Insulin Aspart [NovoLOG Flexpen] 11 units SQ AC-TID 04/26/21 08/17/24 History Insulin Glargine,Hum.rec.anlog 20 units SQ DAILY 04/26/21 08/17/24 History [Lantus Solostar Pen] Metoprolol Tartrate [Lopressor] 25 mg PO BID 04/26/21 08/17/24 History amLODIPine [Norvasc] 10 mg PO DAILY 04/26/21 08/17/24 History Albuterol Inhaler [Ventolin Hfa 2 puff INHALATION RT-QID 06/07/22 08/17/24 History Inhaler] Albuterol Nebulized [Ventolin 2.5 mg INHALATION RT-Q6H PRN 08/17/24 08/17/24 History Nebulized] Furosemide [Lasix] 20 mg PO DAILY 08/17/24 08/17/24 History glipiZIDE [Glucotrol] 5 mg PO AC-BID 08/17/24 08/17/24 History Allergies Allergy/AdvReac Type Severity Reaction Status Date / Time No Known Allergies Allergy Verified 08/17/24 10:15 Physical Exam Vitals: Vital Signs Temp Pulse Pulse Resp BP BP Pulse Ox 08/17/24 04:30 99.8 F H 111 H 18 135/65 93 L 08/17/24 02:34 105 H 18 08/17/24 00:22 98.3 F 105 H 18 146/60 93 L 08/16/24 23:55 93 18 93 L 08/16/24 23:24 85 18 144/76 92 L 08/16/24 21:00 80 18 121/64 93 L 08/16/24 19:54 75 18 117/64 94 L 08/16/24 19:30 98.5 F 79 18 103/59 92 L Intake and Output 08/16/24 08/17/24 08/17/24 22:59 06:59 14:59 Output Total 800 Balance -800 Output: Urine 800 Other: Voiding Method External Catheter Weight 70.307 kg 68.5 kg Results CBC & Chem 7: 08/16/24 20:39 08/16/24 20:39 Labs: Abnormal Lab Results - Last 24 Hours (Table) 08/16/24 08/16/24 08/16/24 Range/Units 20:39 20:39 20:39 WBC 14.88 H (4.50-10.00) 10*3/uL RBC 3.61 L (4.40-5.60) 10*6/uL Hgb 11.0 L (13.0-17.0) g/dL Hct 34.8 L (39.6-50.0) % MCHC 31.6 L (32.0-37.0) g/dL Immature Gran # 0.11 H (0.00-0.04) 10*3/uL Neutrophils # 13.39 H (1.80-7.70) 10*3/uL Lymphocytes # 0.41 L (0.90-5.00) 10*3/uL Eosinophils # 0.00 L (0.04-0.35) 10*3/uL BUN 51 H (9-20) mg/dL Glucose 180 H (74-99) mg/dL POC Glucose (mg/dL) (70-110) mg/dL Magnesium 2.5 H (1.6-2.3) mg/dL Alkaline Phosphatase 164 H (38-126) U/L Troponin I 0.720 H* (0.000-0.034) ng/mL Total Protein 6.2 L (6.3-8.2) g/dL Albumin 3.4 L (3.5-5.0) g/dL Urine Protein (Negative) Urine Blood (Negative) Urine RBC (0-5) /hpf Amorphous Sediment (None) /hpf Hyaline Casts (0-2) /lpf Urine Mucus (None) /hpf 08/16/24 08/17/24 Range/Units 22:15 06:03 WBC (4.50-10.00) 10*3/uL RBC (4.40-5.60) 10*6/uL Hgb (13.0-17.0) g/dL Hct (39.6-50.0) % MCHC (32.0-37.0) g/dL Immature Gran # (0.00-0.04) 10*3/uL Neutrophils # (1.80-7.70) 10*3/uL Lymphocytes # (0.90-5.00) 10*3/uL Eosinophils # (0.04-0.35) 10*3/uL BUN (9-20) mg/dL Glucose (74-99) mg/dL POC Glucose (mg/dL) 161 H (70-110) mg/dL Magnesium (1.6-2.3) mg/dL Alkaline Phosphatase (38-126) U/L Troponin I (0.000-0.034) ng/mL Total Protein (6.3-8.2) g/dL Albumin (3.5-5.0) g/dL Urine Protein 1+ H (Negative) Urine Blood Trace H (Negative) Urine RBC 9 H (0-5) /hpf Amorphous Sediment Rare H (None) /hpf Hyaline Casts 74 H (0-2) /lpf Urine Mucus Rare H (None) /hpf
[2024-08-17] MEDS: INSULIN LISPRO (HumaLOG) 100 UNIT/ML 10 mL VL SQ SCH (12:56)
[2024-08-17] MEDS: METOPROLOL TARTRATE 25 MG TAB PO STA (12:59)
[2024-08-17] MEDS: IPRATROPIUM-ALBUTEROL 3 ML NEB INHALATION SCH (13:12)
[2024-08-17] MEDS: HYDROcodone/APAP 10-325MG 1 EACH TAB PO PRN (16:19)
[2024-08-17 17:02] LABS: Glucose,Whole Blood 236 mg/dL (70-110)
[2024-08-17 20:49] LABS: Glucose,Whole Blood 293 mg/dL (70-110)
[2024-08-17] MEDS: INSULIN GLARGINE (LANTUS) 100 UNIT/ML SYR SQ SCH (20:58)
[2024-08-18 05:46] LABS: Glucose,Whole Blood 90 mg/dL (70-110)
[2024-08-18 07:30] LABS: HCT 36.5 % (39.6-50.0); HGB 11.7 g/dL (13.0-17.0); MCH 30.7 pg (27.0-32.0); MCHC 32.1 g/dL (32.0-37.0); MCV 95.8 fL (80.0-97.0); Mean Platelet Volume 9.9 fL (9.5-12.2); Platelet Count 354 10*3/uL (140-440); RBC 3.81 10*6/uL (4.40-5.60); RDW 13.8 % (11.5-14.5); WBC 15.74 10*3/uL (4.50-10.00)
[2024-08-18 07:44] LABS: African American GFR (CKD) 68 (>60 ml/min/1.73 sqM); Anion Gap 9 mmol/L; Blood Urea Nitrogen 53 mg/dL (9-20); Calcium 8.7 mg/dL (8.4-10.2); Carbon Dioxide 31 mmol/L (22-30); Chloride 100 mmol/L (98-107); Glucose 108 mg/dL (74-99); Non-African American GFR(CKD) 59 (>60 ml/min/1.73 sqM); Potassium 4.3 mmol/L (3.5-5.1); Sodium 140 mmol/L (137-145)
[2024-08-18] MEDS: METOPROLOL TARTRATE 25 MG TAB PO SCH (08:15)
[2024-08-18] MEDS: FUROSEMIDE 40 MG TAB PO SCH (08:15)
[2024-08-18] MEDS: SODIUM CHLORIDE 0.9% 1,000 ML IV SCH (08:16)
[2024-08-18 08:34] LABS: Band Neutrophils % 2 %; Lymphocytes # (M) 0.47 k/uL (1.0-4.8); Metamyelocytes # (M) 0.16 k/uL (0); Metamyelocytes % 1 %; Monocytes # (M) 0.16 k/uL (0-1.0); Neutrophils # (M) 14.95 k/uL (1.3-7.7); Neutrophils % (M) 93 %; Nucleated Red Blood Cells 0 /100 WBC (0-0); RBC Morphology Normal; Total Cells Counted 100
--- NOTE | 2024-08-18 09:47 | P.PN ---
Subjective Progress Note Date: 08/18/24 Reason for Consult (text): Heart failure, elevated troponin History of present illness: This is an 88-year-old male patient of Dr. Vasquez with past medical history of carotid artery stenosis, coronary artery disease, hypertension, dyslipidemia. We have been asked to evaluate the patient for heart failure and elevated troponins. Patient presented to the emergency center due to multiple falls, generalized weakness. Patient apparently had 2 falls yesterday and is very difficult for him to get up off the floor. He is having some shortness of breath this morning. Blood pressure 117/69, heart rate 108, pulse ox 92% on 5 L nasal cannula. Patient has been started on IV Lasix 40 mg every 12 hours. -EKG: Sinus rhythm with right bundle branch block. -Chest x-ray: Clinical correlation for heart failure. Pulmonary edema may be present. -Pelvis x-ray: No acute process. -CT brain and cervical spine showed no acute intracranial process and degenerati ve disc changes of the cervical spine. No acute osseous abnormality. -Laboratory studies: WBC 14.8, hemoglobin 11, sodium 137, potassium 4.5, BUN 51 creatinine 1.12. Troponin 0.720. Alkaline phosphatase 164. -Home cardiac medications: Amlodipine 10 mg daily, atorvastatin 40 mg daily, enalapril 10 mg twice daily, Lasix 20 mg daily, metoprolol tartrate 25 mg twice daily. -Echocardiogram performed 02/09/2022 in the office revealed EF of 55 to 60% with grade 2 diastolic dysfunction. Moderate concentric left ventricular hypertrophy. Mild mitral regurgitation. Mild to moderate tricuspid regurg itation. PASP 42 mmHg. Mild pulmonic regurgitation. -Lexiscan Cardiolite stress test performed in the office on 06/19/2020 revealed negative stress test by EKG criteria. Abnormal nuclear scan showing evidence of prior apical myocardial infarction with preserved LV function without any ischemia. -Cardiac catheterization performed 2008 revealed total occlusion of the mid LAD with very late filling of the mid left anterior descending coronary artery. Diffuse disease in the nondominant right coronary artery and also in the circumflex coronary artery which had moderate disease but noncritical. The left ventricular function was not assessed. Patient subsequently underwent stenting of the totally occluded mid left anterior descending coronary artery in the setting of a subacute myocardial infarction. 08/18 Patient seen and examined. Patient heart rate was up to the 130s around 3 AM in atrial fibrillation and received a dose of metoprolol tartrate 25 mg at that time. Heart rate is still elevated but in the 116 range and blood pressure is low at 92/49, pulse ox 97% on 5 L nasal cannula. Repeat blood work reveals hemoglobin 11.7, WBC 15.7, BUN 53 creatinine 1.13. D-dimer was 1.83. proBNP 11,800. Repeat troponin 0.868. Echocardiogram reveals EF 45 to 50% with mild mitral and tricuspid regurgitation and severe pulmonary hypertension. Physical examination: Gen: This is 88-year-old male in no acute respiratory distress. VS: reviewed HEENT: Head is atraumatic, normocephalic. Pupils equal, round. Sclerae is anicteric. NECK: Supple. No JVD. LUNGS: Clear to auscultation. No wheezes or rhonchi. No intercostal retractions. HEART: Irregular rate and rhythm. No murmur. ABDOMEN: Soft No tenderness. EXTREMITIES: No pedal edema. No calf tenderness. NEUROLOGICAL: Patient is awake, alert to person and place. Assessment: Generalized weakness with multiple falls Acute on chronic diastolic heart failure History of coronary artery disease with previous stent to the LAD in 2008 Carotid artery stenosis bilaterally Hypertension Dyslipidemia New onset paroxysmal atrial fibrillation with RVR Elevated D-dimer Plan: Continue patient's home cardiac medications Transition IV Lasix to oral 40 mg daily Monitor BENOIT, daily weights, electrolytes and renal function Increase metoprolol tartrate 25 mg to 3 times daily Start patient on 0.9 normal saline at 50 cc/h Obtain CTA of the chest to rule out PE Further recommendations to follow based upon clinical course Nurse practitioner note has been reviewed, I agree with documented findings and plan of care. Patient was seen and examined. Objective - Vital Signs Vital signs: Vital Signs Temp 97.5 F L 08/18/24 07:44 Pulse 116 H 08/18/24 07:44 Resp 20 08/18/24 07:44 BP 92/49 08/18/24 07:44 Pulse Ox 97 08/18/24 07:44 FiO2 Intake & Output 08/17/24 08/18/24 08/18/24 18:59 06:59 18:59 Intake Total 300 Output Total 450 Balance -150 Weight 66.9 kg Intake: Oral 300 Output: Urine 450 Other: Voiding Method External Catheter External Catheter # Bowel Movements 1 - Labs CBC & Chem 7: 08/18/24 06:29 08/18/24 06:29 Labs: Abnormal Lab Results - Last 24 Hours (Table) 08/17/24 08/17/24 08/17/24 Range/Units 11:02 11:02 11:51 WBC (4.50-10.00) 10*3/uL RBC (4.40-5.60) 10*6/uL Hgb (13.0-17.0) g/dL Hct (39.6-50.0) % Immature Gran # (0.00-0.04) 10*3/uL D-Dimer 1.83 H (<0.60) mg/L FEU Carbon Dioxide (22-30) mmol/L BUN (9-20) mg/dL Glucose (74-99) mg/dL POC Glucose (mg/dL) 157 H (70-110) mg/dL Troponin I 0.876 H* (0.000-0.034) ng/mL 08/17/24 08/17/24 08/17/24 Range/Units 14:11 16:29 16:53 WBC (4.50-10.00) 10*3/uL RBC (4.40-5.60) 10*6/uL Hgb (13.0-17.0) g/dL Hct (39.6-50.0) % Immature Gran # (0.00-0.04) 10*3/uL D-Dimer (<0.60) mg/L FEU Carbon Dioxide (22-30) mmol/L BUN (9-20) mg/dL Glucose (74-99) mg/dL POC Glucose (mg/dL) 236 H (70-110) mg/dL Troponin I 0.866 H* 0.868 H* (0.000-0.034) ng/mL 08/17/24 08/18/24 08/18/24 Range/Units 20:48 06:29 06:29 WBC 15.74 H (4.50-10.00) 10*3/uL RBC 3.81 L (4.40-5.60) 10*6/uL Hgb 11.7 L (13.0-17.0) g/dL Hct 36.5 L (39.6-50.0) % Immature Gran # 0.08 H (0.00-0.04) 10*3/uL D-Dimer (<0.60) mg/L FEU Carbon Dioxide 31 H (22-30) mmol/L BUN 53 H (9-20) mg/dL Glucose 108 H (74-99) mg/dL POC Glucose (mg/dL) 293 H (70-110) mg/dL Troponin I (0.000-0.034) ng/mL
[2024-08-18] MEDS ORDERED: HEPARIN SODIUM 1,000 UN/ML (10ML VL) IV PRN (10:01)
[2024-08-18 10:37] LABS: HCT 33.1 % (39.6-50.0); HGB 10.6 g/dL (13.0-17.0); MCH 30.5 pg (27.0-32.0); MCV 95.4 fL (80.0-97.0); Mean Platelet Volume 9.9 fL (9.5-12.2); Platelet Count 319 10*3/uL (140-440); RBC 3.47 10*6/uL (4.40-5.60); WBC 16.32 10*3/uL (4.50-10.00)
[2024-08-18 10:47] LABS: INR 0.9 (<1.2); Partial Thromboplastin Time 27.2 sec (22.0-30.0); Prothrombin Time 10.6 sec (10.0-12.5)
[2024-08-18] MEDS ORDERED: PIPERACILLIN-TAZOBACTAM 3.375 GM in SODIUM CHLORIDE 0.9% 100 ML IVPB SCH (10:52)
[2024-08-18] MEDS: HEPARIN SOD,PORK IN 0.45% NACL 25,000 UNIT in 0.45% NACL 1 250ML.BAG IV SCH (10:55)
[2024-08-18] MEDS: HEPARIN SODIUM 1,000 UN/ML (10ML VL) IV ONE (10:56)
--- NOTE | 2024-08-18 11:02 | P.PN ---
Subjective Progress Note Date: 08/18/24 History of present illness; Patient is 88-year-old male with CAD, carotid artery stenosis, hypertension, dy slipidemia, COPD who presents with multiple falls. Patient states that yesterday he had fallen backwards twice while attempting to turn. During time of fall he had no loss of consciousness or other symptoms including palpitations, chest pain, diaphoresis, dizziness. He does attest to some shortness of breath which typically improves when he has up and ambulating, and at times can worsen while laying flat. He does not wear oxygen at home during the day, however wears nasal cannula 2.5 L oxygen while sleeping. He denies recent fever or coughing. No other complaints today. 08/18/2024 Patient seen and examined at bedside. Overnight heart rate up in 130s and in A- fib. He has no complaints of chest pain. Continues to feel short of breath. He continues with with p.o. Lasix 40 mg daily, with IV normal saline at 50 mL/h, heparin drip began due to elevated D-dimer and patient poor candidate for anticoagulation. Cardiology following. Patient remains on 5 L nasal cannula, pulmonology consulted for acute hypoxic respiratory failure, may need ICU level care. Today's labs WBC 15.7, hemoglobin 11.7, platelets 354, bicarb 31, BUN 53, glucose 108, D-dimer 183, chest CTA pending REVIEW OF SYSTEMS: Pertinent positives and negatives noted in HPI. PHYSICAL EXAMINATION: Vitals reviewed GENERAL: Mild distress in bed CARDIOVASCULAR: S1 and S2 present. No murmurs, rubs, or gallops. PULMONARY: Crackles present bilaterally, no wheezing or rhonchi ABDOMEN: Soft, nontender, nondistended. No palpable organomegaly. EXTREMITIES: No apparent cyanosis, clubbing. 2+ pedal edema. NEUROLOGICAL: Alert and oriented. Gross neurological examination with no apparent focal deficits. SKIN: No apparent rashes. Assessment and Plan: In summary, patient is 88-year-old male with CAD, carotid artery stenosis, hypertension, dyslipidemia, COPD who presents with multiple falls. #Acute on chronic systolic congestive heart failure #New onset paroxysmal A-fib with RVR #CHF preserved EF 45-50% #Severe pulmonary hypertension #Elevated troponin likely due to type II myocardial infarction in setting of CHF exacerbation #CAD with previous stent -Echocardiogram with preserved EF 45-50% -continue PO Lasix 40 mg daily Increase metoprolol to tartrate 25 mg to 3 times daily -cardiac monitoring -Initial weight 70.3 kg, daily weights -strict I/O, no more than 2L of total volume intake daily -Low sodium diet, <2g daily -Monitor BMP and Magnesium -Cardiology following #Acute hypoxic respiratory failure likely secondary to CHF exacerbation #Leukocytosis, likely reactive #COPD Chest x-ray with small to moderate right pleural effusion D-dimer elevated, chest CTA pending Continue Lasix as above Maintain SPO2 greater than 92%, titrate down oxygen as tolerated - Pulmonology consulted #Multiple falls, likely secondary to hypoxemia from above Plan as above PT OT consulted #Diabetes mellitus, type 2 Holding oral medications Begin Accu-Cheks and low-dose sliding scale, monitor for hypoglycemia Resume home long-acting insulin 10 units Chronic Medical Conditions #Hypertension DVT ppx: Heparin infusion Code status: Full code F: P.o., fluid less than 2 L daily E: Replete as needed N: Heart healthy diet, sodium less than 2 g daily A: Ambulatory uses cane at baseline Anticipated discharge place: Pending clinical course Anticipated discharge time: Pending clinical course Dr. Doan seen patient with resident, present during exam, and agreed with findings. Dictation was produced using [employer] dictation software. Please excuse any grammatical, word or spelling errors. Objective - Vital Signs Vital signs: Vital Signs Temp 97.5 F L 08/18/24 07:44 Pulse 116 H 08/18/24 08:03 Resp 20 08/18/24 07:44 BP 92/49 08/18/24 07:44 Pulse Ox 97 08/18/24 07:44 FiO2 Intake & Output 08/17/24 08/18/24 08/18/24 18:59 06:59 18:59 Intake Total 300 0 Output Total 450 Balance -150 0 Weight 66.9 kg Intake: Oral 300 0 Output: Urine 450 Other: Voiding Method External Catheter External Catheter External Catheter # Bowel Movements 1 - Labs CBC & Chem 7: 08/19/24 06:46 08/19/24 06:46 Labs: Abnormal Lab Results - Last 24 Hours (Table) 08/17/24 08/17/24 08/17/24 Range/Units 11:02 11:02 11:51 WBC (4.50-10.00) 10*3/uL RBC (4.40-5.60) 10*6/uL Hgb (13.0-17.0) g/dL Hct (39.6-50.0) % Immature Gran # (0.00-0.04) 10*3/uL Neutrophils # (Manual) (1.3-7.7) k/uL Lymphocytes # (Manual) (1.0-4.8) k/uL Metamyelocytes # (Man) (0) k/uL D-Dimer 1.83 H (<0.60) mg/L FEU Carbon Dioxide (22-30) mmol/L BUN (9-20) mg/dL Glucose (74-99) mg/dL POC Glucose (mg/dL) 157 H (70-110) mg/dL Troponin I 0.876 H* (0.000-0.034) ng/mL 08/17/24 08/17/24 08/17/24 Range/Units 14:11 16:29 16:53 WBC (4.50-10.00) 10*3/uL RBC (4.40-5.60) 10*6/uL Hgb (13.0-17.0) g/dL Hct (39.6-50.0) % Immature Gran # (0.00-0.04) 10*3/uL Neutrophils # (Manual) (1.3-7.7) k/uL Lymphocytes # (Manual) (1.0-4.8) k/uL Metamyelocytes # (Man) (0) k/uL D-Dimer (<0.60) mg/L FEU Carbon Dioxide (22-30) mmol/L BUN (9-20) mg/dL Glucose (74-99) mg/dL POC Glucose (mg/dL) 236 H (70-110) mg/dL Troponin I 0.866 H* 0.868 H* (0.000-0.034) ng/mL 08/17/24 08/18/24 08/18/24 Range/Units 20:48 06:29 06:29 WBC 15.74 H (4.50-10.00) 10*3/uL RBC 3.81 L (4.40-5.60) 10*6/uL Hgb 11.7 L (13.0-17.0) g/dL Hct 36.5 L (39.6-50.0) % Immature Gran # 0.08 H (0.00-0.04) 10*3/uL Neutrophils # (Manual) 14.95 H (1.3-7.7) k/uL Lymphocytes # (Manual) 0.47 L (1.0-4.8) k/uL Metamyelocytes # (Man) 0.16 H (0) k/uL D-Dimer (<0.60) mg/L FEU Carbon Dioxide 31 H (22-30) mmol/L BUN 53 H (9-20) mg/dL Glucose 108 H (74-99) mg/dL POC Glucose (mg/dL) 293 H (70-110) mg/dL Troponin I (0.000-0.034) ng/mL
[2024-08-18 11:06] LABS: Glucose,Whole Blood 147 mg/dL (70-110)
--- NOTE | 2024-08-18 11:15 | CT ---
EXAMINATION TYPE: CT angio chest CT DLP: 362.6 mGycm, Automated exposure control for dose reduction was used. DATE OF EXAM: 08/18/2024 10:48 AM COMPARISON: Chest radiograph 08/16/2024, CT chest 06/07/2022 CLINICAL INDICATION:Male, 88 years old with history of Elevated D-dimer, rule out PE; elevated dimer TECHNIQUE/CONTRAST: CTA scan of the thorax is performed with IV Contrast, patient injected with 100 mL of Isovue 370, pul monary embolism protocol. MIP images are created and reviewed. FINDINGS: Beam hardening artifact from the patient's arms limits evaluation. Pulmonary Artery: There is no evidence for a filling defect within the pulmonary vasculature to sugge st acute pulmonary embolism. The pulmonary artery is dilated measuring 3.9 cm in diameter. Reflux of contrast into the IVC. Lungs/Pleura: Incidental azygous fissure. No pneumothorax. Moderate to severe centrilobular emphysema tous changes. Patchy consolidative opacities throughout the right lung and most prominent within the right lung base. Additional regions within the left lung base. Small left and small to moderate right pleural effusions. Limited evaluation hypodensity within the pleural effusions due to beam hardening artifact. No patchy reticular opacities within the medial aspect of the right upper lobe and lingula . Right-sided pleural calcification redemonstrated. Airway: Large airways are patent. Heart: Cardiomegaly is demonstrated.No pericardial effusion. Severe coronary artery calcifications pr esent. Vasculature: No evidence of aortic aneurysm. Moderate atherosclerotic calcification of the aorta and its branches. Mediastinum: Development of subcarinal enlarged lymph node measuring up to 2.3 cm and right hilar gene nopathy measuring up to 1.9 cm. Musculoskeletal: No acute osseous abnormalities. Diffuse bone demineralization. Mild multilevel degen erative disc disease. Soft Tissues: Unremarkable. Lower neck: No significant findings. Upper Abdomen: Few periportal calcifications redemonstrated.. IMPRESSION: 1. No evidence of pulmonary embolism. 2. Patchy consolidative opacities throughout the right lung and left lower lobe with additional reti cular opacities within the left lung. Findings consistent with multifocal pneumonia. 3. Development of right hilar and subcarinal adenopathy. Possibly reactive to #2. Underlying maligna ncy/metastasis is not excluded. Continued follow-up is recommended. 4. Small to moderate-sized right and small left pleural effusions. 5. Redemonstration of a right pleural calcified plaque. Correlate for prior asbestosis exposure. 6. Dilated main pulmonary artery suggesting pulmonary arterial hypertension. 7. Severe coronary arterial calcifications. 8. Moderate to severe emphysematous changes. [facility], , 08/18/2024 11:13 AM
[2024-08-18] MEDS: PIPERACILLIN-TAZOBACTAM 3.375 GM in SODIUM CHLORIDE 0.9% 100 ML IVPB SCH (12:05)
[2024-08-18 12:59] LABS: Band Neutrophils % 2 %; Lymphocytes # (M) 0.49 k/uL (1.0-4.8); Metamyelocytes # (M) 0.16 k/uL (0); Metamyelocytes % 1 %; Monocytes # (M) 0.65 k/uL (0-1.0); Neutrophils # (M) 15.17 k/uL (1.3-7.7); Neutrophils % (M) 91 %; Nucleated Red Blood Cells 0 /100 WBC (0-0); Total Cells Counted 200
[2024-08-18 13:01] LABS: RBC Morphology Normal
[2024-08-18 13:08] LABS: Influenza A Not Detected (Not Detectd); Influenza B Not Detected (Not Detectd); RSV Not Detected (Not Detectd)
--- NOTE | 2024-08-18 13:56 | P.CNPUL ---
History of Present Illness Consult date: 08/18/24 Reason for consult: dyspnea History of present illness: On 08/18/2024, patient is being seen in consultation for shortness of breath and abnormal chest x-ray. The patient is 88 and is known to have COPD, diabetes mellitus type 2 coronary artery disease, carotid artery stenosis, hypertension, and hyperlipidemia and based on the previous echocardiogram from 2021, the patient has a preserved LV function with an EF of around 55 to 60% with a grade 2 diastolic heart failure and moderate LVH with mild to moderate pulmonary artery pressure elevation with a PASP of 42. He is known to have nonocclusive coronary artery disease based on a previous cardiac catheterization from 2008. The patient is also known to have a chronic right-sided pleural effusion that has remained stable over the years. The patient has undergone previous thoracentesis of the right lung back in 2022 and this fluid was felt to be a parapneumonic in nature. Interventional radiologist underwent a thoracentesis back then and subsequent chest x-ray continued to show residual effusion with trapped pleural fluid in the right lung base. A repeat chest x-ray that was do ne during this current admission and there is obvious worsening of with extensive consolidation involving the right lung more dense in the right lung base. Based on that, the patient was given a CTA of the chest that showed no evidence of any pulmonary embolism. There was an extensive patchy consolidation throughout the right lung and the left lower lobe consistent with multifocal pneumonia. There is also development of a right hilar and subcarinal lymphadenopathy which obviously raises suspicion for malignancy. There is a small right-sided pleural effusion and a smaller left-sided pleural effusion. 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 There is background emphysema. The white cell count is currently at 16.3 with a hemoglobin 10.6 and a platelet count of 319. Normal coagulation profile. BUN 53 with a Of 1.1. Sodium Level Is 140 with a Potassium Level of 4.3. Viral Screen Was Negative. I Was Also Told That the Patient Is Having Some Difficulties with Swallowing As the Patient Coughs during the Swallow and This Obviously Raises Concern for Aspiration Pneumonia. Patient Was Started on IV Zosyn As an Empiric Antibiotic Coverage. The Patient Also Encountered Atrial Fibrillation with Rapid Ventricular Response at around 3 AM This Morning. The Patient Received Metoprolol 25 Mg at That Time. The Patient Was Started on IV Heparin. He Is Currently on 5 L of Oxygen by Nasal Cannula. Cardiology on the Case. Echocardiogram Repeated Showed an Ejection Fraction of 45 to 50% with Mild MR, and Mild TR with Severe Pulmonary Hypertension. Review of Systems Constitutional: Reports fatigue, Reports weakness Eyes: denies as per HPI, denies blurred vision, denies bulging eye, denies decreased vision, denies diplopia, denies discharge, denies dry eye, denies irritation, denies itching, denies pain, denies photophobia, denies loss of peripheral vision, denies loss of vision, denies tunnel vision/blind spots Ears: deny: decreased hearing, ear discharge, earache, tinnitus Ears, nose, mouth and throat: Reports as per HPI Breasts: absent: as per HPI, gynecomastia Cardiovascular: Reports decreased exercise tolerance, Reports dyspnea on exe rtion, Reports irregular heart beat, Reports rapid heart beat, Reports shortness of breath Respiratory: Reports cough, Reports dyspnea Gastrointestinal: Reports as per HPI (Dysphagia) Genitourinary: Reports as per HPI Musculoskeletal: Reports as per HPI Musculoskeletal: absent: ankle pain, ankle stiffness, ankle swelling, as per HPI, elbow pain, elbow stiffness, elbow swelling, foot pain, foot stiffness, foot swelling, hand pain, hand stiffness, hand swelling, hip pain, hip stiffness, hip swelling, knee pain, knee stiffness, knee swelling, shoulder pain, shoulder stiffness, shoulder swelling, wrist pain, wrist stiffness, wrist swelling Integumentary: Reports as per HPI Neurological: Reports as per HPI Psychiatric: Reports as per HPI Endocrine: Reports as per HPI Hematologic/Lymphatic: Reports as per HPI Allergic/Immunologic: Reports as per HPI Past Medical History Past Medical History: Coronary Artery Disease (CAD), COPD, Diabetes Mellitus, Deep Vein Thrombosis (DVT), Hypertension, Myocardial Infarction (HI) Additional Past Medical History / Comment(s): unsure of exact date of HI and cardiac stent. Last Myocardial Infarction Date:: 2011 History of Any Multi-Drug Resistant Organisms: None Reported Past Surgical History: Heart Catheterization With Stent Past Anesthesia/Blood Transfusion Reactions: No Reported Reaction Date of Last Stent Placement:: 2011 Past Psychological History: Anxiety, Depression Smoking Status: Current some day smoker Past Alcohol Use History: None Reported Past Drug Use History: None Reported - Past Family History Father Additional Family Medical History / Comment(s): from prostate CA Brother(s) Family Medical History: AICD/Pacemaker Additional Family Medical History / Comment(s): prostate CA, 1 foot of colon removed r/t diverticulitis, triple bypass Mother Family Medical History: COPD, Dementia, Diabetes Mellitus Additional Family Medical History / Comment(s): of complications from DM Medications and Allergies Home Medications Medication Instructions Recorded Confirmed Type Atorvastatin [Lipitor] 40 mg PO DAILY 04/26/21 08/17/24 History Enalapril [Vasotec] 10 mg PO BID 04/26/21 08/17/24 History Gabapentin [Neurontin] 300 mg PO QID 04/26/21 08/17/24 History HYDROcodone/APAP 10-325MG [[place] 1 tab PO Q6H PRN 04/26/21 08/17/24 History 10-325] Insulin Aspart [NovoLOG Flexpen] 11 units SQ AC-TID 04/26/21 08/17/24 History Insulin Glargine,Hum.rec.anlog 20 units SQ DAILY 04/26/21 08/17/24 History [Lantus Solostar Pen] Metoprolol Tartrate [Lopressor] 25 mg PO BID 04/26/21 08/17/24 History amLODIPine [Norvasc] 10 mg PO DAILY 04/26/21 08/17/24 History Albuterol Inhaler [Ventolin Hfa 2 puff INHALATION RT-QID 06/07/22 08/17/24 History Inhaler] Albuterol Nebulized [Ventolin 2.5 mg INHALATION RT-Q6H PRN 08/17/24 08/17/24 History Nebulized] Furosemide [Lasix] 20 mg PO DAILY 08/17/24 08/17/24 History glipiZIDE [Glucotrol] 5 mg PO AC-BID 08/17/24 08/17/24 History Allergies Allergy/AdvReac Type Severity Reaction Status Date / Time No Known Allergies Allergy Verified 08/17/24 10:15 Physical Exam Vitals: Vital Signs Temp Pulse Pulse Resp BP Pulse Ox 08/18/24 08:03 116 H 08/18/24 07:44 97.5 F L 116 H 20 92/49 97 08/18/24 03:44 133 H 26 H 89/56 95 08/18/24 02:00 126 H 26 H 90/54 95 08/18/24 01:28 114 H 08/17/24 23:23 98.5 F 109 H 20 89/62 96 08/17/24 20:00 99.0 F 112 H 20 98/62 97 08/17/24 17:22 108 H 08/17/24 17:12 110 H 08/17/24 16:20 97.5 F L 110 H 20 117/70 94 L 08/17/24 14:00 118 H 21 08/17/24 12:45 98.2 F 118 H 20 95/58 92 L Intake and Output 08/17/24 08/18/24 08/18/24 22:59 06:59 14:59 Intake Total 300 0 Balance 300 0 Intake: Oral 300 0 Other: Voiding Method External Catheter External Catheter External Catheter Weight 66.9 kg The patient appeared well nourished and normally developed. Vital signs as documented. The patient is comfortable on 5 L of oxygen by nasal cannula Head exam is unremarkable. No scleral icterus or corneal arcus noted. Neck is without jugular venous distension, thyromegaly, or carotid bruits. Carotid upstrokes are brisk bilaterally. Lungs sounds are diminished bilaterally especially in the right lung base along with bibasilar crackles. Cardiac exam reveals the PMI to be normally sized and situated. Irregular consistent with atrial fibrillation. First and second heart sounds normal. No murmurs, rubs or gallops. Abdominal exam reveals normal bowel sounds, no masses, no organomegaly and no ao rtic enlargement. Extremities are nonedematous and both femoral and pedal pulses are normal. Examination of the skin revealed no evidence of significant rashes, suspicious appearing nevi or other concerning lesions. Neurologically, the patient is awake and alert and the patient does not have any focal neurological deficit. Cranial nerves are essentially intact. Results - Laboratory Findings CBC and BMP: 08/18/24 10:12 08/18/24 06:29 PT/INR, D-dimer PT 10.8 sec (10.0-12.5) 08/16/24 20:39 INR 1.0 (<1.2) 08/16/24 20:39 D-Dimer 1.83 mg/L FEU (<0.60) H 08/17/24 11:02 Abnormal lab findings: Abnormal Labs 08/16/24 08/16/24 08/16/24 20:39 20:39 20:39 WBC 14.88 H RBC 3.61 L Hgb 11.0 L Hct 34.8 L MCHC 31.6 L Immature Gran # 0.11 H Neutrophils # 13.39 H Neutrophils # (Manual) Lymphocytes # 0.41 L Lymphocytes # (Manual) Eosinophils # 0.00 L Metamyelocytes # (Man) D-Dimer Carbon Dioxide BUN 51 H Glucose 180 H POC Glucose (mg/dL) Magnesium 2.5 H Alkaline Phosphatase 164 H Troponin I 0.720 H* Total Protein 6.2 L Albumin 3.4 L Urine Protein Urine Blood Urine RBC Amorphous Sediment Hyaline Casts Urine Mucus 08/16/24 08/17/24 08/17/24 22:15 06:03 11:02 WBC RBC Hgb Hct MCHC Immature Gran # Neutrophils # Neutrophils # (Manual) Lymphocytes # Lymphocytes # (Manual) Eosinophils # Metamyelocytes # (Man) D-Dimer Carbon Dioxide BUN Glucose POC Glucose (mg/dL) 161 H Magnesium Alkaline Phosphatase Troponin I 0.876 H* Total Protein Albumin Urine Protein 1+ H Urine Blood Trace H Urine RBC 9 H Amorphous Sediment Rare H Hyaline Casts 74 H Urine Mucus Rare H 08/17/24 08/17/24 08/17/24 11:02 11:51 14:11 WBC RBC Hgb Hct MCHC Immature Gran # Neutrophils # Neutrophils # (Manual) Lymphocytes # Lymphocytes # (Manual) Eosinophils # Metamyelocytes # (Man) D-Dimer 1.83 H Carbon Dioxide BUN Glucose POC Glucose (mg/dL) 157 H Magnesium Alkaline Phosphatase Troponin I 0.866 H* Total Protein Albumin Urine Protein Urine Blood Urine RBC Amorphous Sediment Hyaline Casts Urine Mucus 08/17/24 08/17/24 08/17/24 16:29 16:53 20:48 WBC RBC Hgb Hct MCHC Immature Gran # Neutrophils # Neutrophils # (Manual) Lymphocytes # Lymphocytes # (Manual) Eosinophils # Metamyelocytes # (Man) D-Dimer Carbon Dioxide BUN Glucose POC Glucose (mg/dL) 236 H 293 H Magnesium Alkaline Phosphatase Troponin I 0.868 H* Total Protein Albumin Urine Protein Urine Blood Urine RBC Amorphous Sediment Hyaline Casts Urine Mucus 08/18/24 08/18/24 06:29 06:29 WBC 15.74 H RBC 3.81 L Hgb 11.7 L Hct 36.5 L MCHC Immature Gran # 0.08 H Neutrophils # Neutrophils # (Manual) 14.95 H Lymphocytes # Lymphocytes # (Manual) 0.47 L Eosinophils # Metamyelocytes # (Man) 0.16 H D-Dimer Carbon Dioxide 31 H BUN 53 H Glucose 108 H POC Glucose (mg/dL) Magnesium Alkaline Phosphatase Troponin I Total Protein Albumin Urine Protein Urine Blood Urine RBC Amorphous Sediment Hyaline Casts Urine Mucus - Diagnostic Findings Chest x-ray: image reviewed CT scan - chest: image reviewed Assessment and Plan Plan: Acute hypoxic respiratory failure, currently on 5 L of oxygen by nasal cannula. The patient has developed extensive multifocal pneumonia right more than left. Chest x-ray and a CT scan of the chest was reviewed. No evidence of any pulm embolism. Extensive right lung and right lower lobe pulmonary consolidation in addition to multifocal airspace disease. Consider aspiration. Community- acquired pneumonia. Mediastinal lymphadenopathy, right hilar and subcarinal, consider possibility of malignancy COPD Chronic loculated right-sided pleural effusion present since 2022, patient has undergone an IR guided thoracentesis back in 2022 and subsequent chest x-ray showed a stable chronic small right-sided pleural effusion. CHF with preserved LV function/diastolic heart failure New onset atrial fibrillation with rapid ventricular response, rate is controlled and the patient is currently on IV heparin Chronic nonocclusive coronary artery disease, referred to the cardiac catheterization performed back in 2008 Hypertension Hyperlipidemia Carotid artery disease/stenosis Acute leukocytosis secondary to above Plan Titrate oxygen flow to maintain saturation above 90%, currently on 5 L Swallow evaluation to rule out aspiration Start the patient on IV Zosyn Sputum Gram stain and culture and blood culture Management of A-fib per cardiology. Echo was noted. Continue IV heparin Metoprolol for rate control 25 mg p.o. 3 times daily Lantus insulin for blood sugar control 10 units along with a NovoLog sliding scale coverage Lasix 40 mg p.o. daily Continue aspirin Continue amlodipine DuoNeb nebulized treatments [id number] Evaluation of mediastinal lymph nodes at a later stage. May benefit from an EBUS. For now, the priority is to continue with the patient's multifocal pneumonia. Will continue to follow.
[2024-08-18] MEDS: AMIODARONE 360 MG in DEXTROSE 5% IN WATER 200 ML IV ONE (15:02)
[2024-08-18 16:12] LABS: Glucose,Whole Blood 376 mg/dL (70-110)
[2024-08-18 20:21] LABS: Glucose,Whole Blood 278 mg/dL (70-110)
[2024-08-18] MEDS: AMIODARONE 450 MG in DEXTROSE 5% IN WATER 250 ML IV SCH (20:42)
[2024-08-19 06:14] LABS: Glucose,Whole Blood 196 mg/dL (70-110)
[2024-08-19 07:00] LABS: HCT 34.2 % (39.6-50.0); HGB 10.8 g/dL (13.0-17.0); MCH 30.2 pg (27.0-32.0); MCHC 31.6 g/dL (32.0-37.0); MCV 95.5 fL (80.0-97.0); Mean Platelet Volume 9.9 fL (9.5-12.2); Platelet Count 326 10*3/uL (140-440); RBC 3.58 10*6/uL (4.40-5.60); RDW 14.2 % (11.5-14.5); WBC 20.15 10*3/uL (4.50-10.00)
[2024-08-19 07:57] LABS: African American GFR (CKD) 56 (>60 ml/min/1.73 sqM); Anion Gap 14 mmol/L; Blood Urea Nitrogen 72 mg/dL (9-20); Calcium 8.5 mg/dL (8.4-10.2); Carbon Dioxide 22 mmol/L (22-30); Chloride 105 mmol/L (98-107); Glucose 202 mg/dL (74-99); Non-African American GFR(CKD) 48 (>60 ml/min/1.73 sqM); Sodium 141 mmol/L (137-145)
[2024-08-19] MEDS ORDERED: METOPROLOL TARTRATE 25 MG TAB PO SCH (08:00)
[2024-08-19 09:15] LABS: Band Neutrophils % 4 %; Lymphocytes # (M) 1.01 k/uL (1.0-4.8); Metamyelocytes % 3 %; Neutrophils # (M) 18.33 k/uL (1.3-7.7); Neutrophils % (M) 87 %; Nucleated Red Blood Cells 0 /100 WBC (0-0); Total Cells Counted 200
[2024-08-19] MEDS: METOPROLOL TARTRATE 25 MG TAB PO STA (09:16)
[2024-08-19 09:17] LABS: RBC Morphology Normal
--- NOTE | 2024-08-19 09:49 | P.PN ---
Subjective Progress Note Date: 08/19/24 Reason for Consult (text): Heart failure, elevated troponin History of present illness: This is an 88-year-old male patient of Dr. Vasquez with past medical history of carotid artery stenosis, coronary artery disease, hypertension, dyslipidemia. We have been asked to evaluate the patient for heart failure and elevated troponins. Patient presented to the emergency center due to multiple falls, generalized weakness. Patient apparently had 2 falls yesterday and is very difficult for him to get up off the floor. He is having some shortness of breath this morning. Blood pressure 117/69, heart rate 108, pulse ox 92% on 5 L nasal cannula. Patient has been started on IV Lasix 40 mg every 12 hours. -EKG: Sinus rhythm with right bundle branch block. -Chest x-ray: Clinical correlation for heart failure. Pulmonary edema may be present. -Pelvis x-ray: No acute process. -CT brain and cervical spine showed no acute intracranial process and degenerati ve disc changes of the cervical spine. No acute osseous abnormality. -Laboratory studies: WBC 14.8, hemoglobin 11, sodium 137, potassium 4.5, BUN 51 creatinine 1.12. Troponin 0.720. Alkaline phosphatase 164. -Home cardiac medications: Amlodipine 10 mg daily, atorvastatin 40 mg daily, enalapril 10 mg twice daily, Lasix 20 mg daily, metoprolol tartrate 25 mg twice daily. -Echocardiogram performed 02/09/2022 in the office revealed EF of 55 to 60% with grade 2 diastolic dysfunction. Moderate concentric left ventricular hypertrophy. Mild mitral regurgitation. Mild to moderate tricuspid regurg itation. PASP 42 mmHg. Mild pulmonic regurgitation. -Lexiscan Cardiolite stress test performed in the office on 06/19/2020 revealed negative stress test by EKG criteria. Abnormal nuclear scan showing evidence of prior apical myocardial infarction with preserved LV function without any ischemia. -Cardiac catheterization performed 2008 revealed total occlusion of the mid LAD with very late filling of the mid left anterior descending coronary artery. Diffuse disease in the nondominant right coronary artery and also in the circumflex coronary artery which had moderate disease but noncritical. The left ventricular function was not assessed. Patient subsequently underwent stenting of the totally occluded mid left anterior descending coronary artery in the setting of a subacute myocardial infarction. 08/18 Patient seen and examined. Patient heart rate was up to the 130s around 3 AM in atrial fibrillation and received a dose of metoprolol tartrate 25 mg at that time. Heart rate is still elevated but in the 116 range and blood pressure is low at 92/49, pulse ox 97% on 5 L nasal cannula. Repeat blood work reveals hemoglobin 11.7, WBC 15.7, BUN 53 creatinine 1.13. D-dimer was 1.83. proBNP 11,800. Repeat troponin 0.868. Echocardiogram reveals EF 45 to 50% with mild mitral and tricuspid regurgitation and severe pulmonary hypertension. 08/19 Patient seen and examined. Patient went into A-fib with RVR yesterday afternoon and has been started on amiodarone drip. He remains in atrial fibrillation with heart rate 130. Yesterday, patient was also started on IV antibiotics for pn eumonia and is followed by pulmonary medicine. Due to elevated D-dimer, patient was started on high intensity protocol heparin yesterday. CTA was negative for PE and the heparin drip was changed to low intensity protocol which we will continue due to new onset of atrial fibrillation. Physical examination: Gen: This is 88-year-old male in no acute respiratory distress. VS: reviewed HEENT: Head is atraumatic, normocephalic. Pupils equal, round. Sclerae is anicteric. NECK: Supple. No JVD. LUNGS: Clear to auscultation. No wheezes or rhonchi. No intercostal retractions. HEART: Irregular rate and rhythm. No murmur. ABDOMEN: Soft No tenderness. EXTREMITIES: No pedal edema. No calf tenderness. NEUROLOGICAL: Patient is awake, alert to person and place. Assessment: Generalized weakness with multiple falls Acute on chronic diastolic heart failure History of coronary artery disease with previous stent to the LAD in 2008 Carotid artery stenosis bilaterally Hypertension Dyslipidemia New onset paroxysmal atrial fibrillation with RVR Elevated D-dimer, CTA negative for PE Plan: Continue patient's home cardiac medications Lasix has been transitioned to oral 40 mg daily Increase to metoprolol tartrate 50 mg 3 times daily Continue patient on amiodarone drip Continue heparin drip for now Due to multiple falls, patient is not a good candidate for long-term anticoagulation Further recommendations to follow based upon clinical course Nurse practitioner note has been reviewed, I agree with documented findings and plan of care. Patient was seen and examined. Objective - Vital Signs Vital signs: Vital Signs Temp 97.8 F 08/19/24 07:32 Pulse 126 H 08/19/24 07:32 Resp 24 08/19/24 07:32 BP 107/67 08/19/24 07:32 Pulse Ox 92 L 08/19/24 07:32 FiO2 Intake & Output 08/18/24 08/19/24 08/19/24 18:59 06:59 18:59 Intake Total 300 234.618 Output Total 200 Balance 100 234.618 Weight 66.9 kg 71.5 kg Intake: Intake, IV Titration 234.618 Amount Heparin Sod,Pork in 0.45% 234.618 NaCl 25,000 unit In 0.45 % NaCl 1 250ml.bag @ 18 UNITS/KG/HR 12.042 mls/hr IV .[id number] [facility] Rx#: [id number] Oral 300 Output: Urine 200 Other: Voiding Method External Catheter External Catheter # Voids 2 - Labs CBC & Chem 7: 08/19/24 06:46 08/19/24 06:46 Labs: Abnormal Lab Results - Last 24 Hours (Table) 08/18/24 08/18/24 08/18/24 Range/Units 06:29 10:12 11:05 WBC 16.32 H (4.50-10.00) 10*3/uL RBC 3.47 L (4.40-5.60) 10*6/uL Hgb 10.6 L (13.0-17.0) g/dL Hct 33.1 L (39.6-50.0) % MCHC (32.0-37.0) g/dL Immature Gran # 0.08 H (0.00-0.04) 10*3/uL Neutrophils # (Manual) 14.95 H 15.17 H (1.3-7.7) k/uL Lymphocytes # (Manual) 0.47 L 0.49 L (1.0-4.8) k/uL Metamyelocytes # (Man) 0.16 H 0.16 H (0) k/uL APTT (22.0-30.0) sec POC Glucose (mg/dL) 147 H (70-110) mg/dL 08/18/24 08/18/24 08/18/24 Range/Units 16:10 16:44 20:19 WBC (4.50-10.00) 10*3/uL RBC (4.40-5.60) 10*6/uL Hgb (13.0-17.0) g/dL Hct (39.6-50.0) % MCHC (32.0-37.0) g/dL Immature Gran # (0.00-0.04) 10*3/uL Neutrophils # (Manual) (1.3-7.7) k/uL Lymphocytes # (Manual) (1.0-4.8) k/uL Metamyelocytes # (Man) (0) k/uL APTT 54.3 H (22.0-30.0) sec POC Glucose (mg/dL) 376 H 278 H (70-110) mg/dL 08/19/24 08/19/24 08/19/24 Range/Units 06:11 06:46 06:46 WBC 20.15 H (4.50-10.00) 10*3/uL RBC 3.58 L (4.40-5.60) 10*6/uL Hgb 10.8 L (13.0-17.0) g/dL Hct 34.2 L (39.6-50.0) % MCHC 31.6 L (32.0-37.0) g/dL Immature Gran # 0.32 H (0.00-0.04) 10*3/uL Neutrophils # (Manual) (1.3-7.7) k/uL Lymphocytes # (Manual) (1.0-4.8) k/uL Metamyelocytes # (Man) (0) k/uL APTT 48.9 H (22.0-30.0) sec POC Glucose (mg/dL) 196 H (70-110) mg/dL
[2024-08-19 11:28] LABS: Glucose,Whole Blood 217 mg/dL (70-110)
--- NOTE | 2024-08-19 14:21 | P.PN ---
Subjective Progress Note Date: 08/19/24 History of present illness; Patient is 88-year-old male with CAD, carotid artery stenosis, hypertension, dy slipidemia, COPD who presents with multiple falls. Patient states that yesterday he had fallen backwards twice while attempting to turn. During time of fall he had no loss of consciousness or other symptoms including palpitations, chest pain, diaphoresis, dizziness. He does attest to some shortness of breath which typically improves when he has up and ambulating, and at times can worsen while laying flat. He does not wear oxygen at home during the day, however wears nasal cannula 2.5 L oxygen while sleeping. He denies recent fever or coughing. No other complaints today. 08/18/2024 Patient seen and examined at bedside. Overnight heart rate up in 130s and in A- fib. He has no complaints of chest pain. Continues to feel short of breath. He continues with with p.o. Lasix 40 mg daily, with IV normal saline at 50 mL/h, heparin drip began due to elevated D-dimer and patient poor candidate for anticoagulation. Cardiology following. Patient remains on 5 L nasal cannula, pulmonology consulted for acute hypoxic respiratory failure, may need ICU level care. Today's labs WBC 15.7, hemoglobin 11.7, platelets 354, bicarb 31, BUN 53, glucose 108, D-dimer 183, chest CTA pending 08/19. Patient seen and examined. Labs reviewed showed WBC 20.15, hemoglobin 10.8, sodium 141, potassium 4, BUN 72, creatinine 1.33,. Continues to be on 5 L of oxygen. Patient states he does not feel any better than yesterday. Still has shortness of breath on exertion. REVIEW OF SYSTEMS: Pertinent positives and negatives noted in HPI. PHYSICAL EXAMINATION: Vitals reviewed GENERAL: Ill looking CARDIOVASCULAR: S1 and S2 present. No murmurs, rubs, or gallops. PULMONARY: Crackles present bilaterally, no wheezing or rhonchi ABDOMEN: Soft, nontender, nondistended. No palpable organomegaly. EXTREMITIES: No apparent cyanosis, clubbing. 2+ pedal edema. NEUROLOGICAL: Alert and oriented. Gross neurological examination with no apparent focal deficits. SKIN: No apparent rashes. Assessment and Plan: In summary, patient is 88-year-old male with CAD, carotid artery stenosis, hypertension, dyslipidemia, COPD who presents with multiple falls. #Acute on chronic systolic congestive heart failure #New onset paroxysmal A-fib with RVR #CHF preserved EF 45-50% #Severe pulmonary hypertension #Elevated troponin likely due to type II myocardial infarction in setting of CHF exacerbation #CAD with previous stent -Echocardiogram with preserved EF 45-50% -continue PO Lasix 40 mg daily Dose of Lopressor increased to 50 mg 3 times daily -cardiac monitoring -Initial weight 70.3 kg, daily weights -strict I/O, no more than 2L of total volume intake daily -Low sodium diet, <2g daily Continue heparin pharmacy to dose -Monitor BMP and Magnesium -Cardiology following #Acute hypoxic respiratory failure likely secondary to CHF exacerbation, bacterial pneumonia Bacterial pneumonia #Leukocytosis, likely reactive #COPD Chest x-ray with small to moderate right pleural effusion CTA chest done showed patchy consolidative opacities throughout the right lung and left lower lobe with additional reticular opacities in the left lung. Currently on IV Zosyn - Pulmonology following #Multiple falls, likely secondary to hypoxemia from above Plan as above PT OT consulted #Diabetes mellitus, type 2 Holding oral medications Begin Accu-Cheks and low-dose sliding scale, monitor for hypoglycemia Resume home long-acting insulin 10 units Chronic Medical Conditions #Hypertension DVT ppx: Heparin infusion Code status: Full code F: P.o., fluid less than 2 L daily E: Replete as needed N: Heart healthy diet, sodium less than 2 g daily A: Ambulatory uses cane at baseline Objective - Vital Signs Vital signs: Vital Signs Temp 97.8 F 08/19/24 07:32 Pulse 91 08/19/24 11:45 Resp 18 08/19/24 11:45 BP 91/60 08/19/24 11:45 Pulse Ox 100 08/19/24 11:45 FiO2 Intake & Output 08/18/24 08/19/24 08/19/24 18:59 06:59 18:59 Intake Total 300 234.618 368.061 Output Total 200 Balance 100 234.618 368.061 Weight 66.9 kg 71.5 kg Intake: Intake, IV Titration 234.618 248.061 Amount Amiodarone 450 mg In 248.061 Dextrose 5% in Water 250 ml @ 0.5 MG/MIN 16.667 mls/hr IV .Q15H [facility] Rx#: [id number] Heparin Sod,Pork in 0.45% 234.618 NaCl 25,000 unit In 0.45 % NaCl 1 250ml.bag @ 18 UNITS/KG/HR 12.042 mls/hr IV .[id number] [facility] Rx#: [id number] Oral 300 120 Output: Urine 200 Other: Voiding Method External Catheter External Catheter External Catheter # Voids 2 - Labs CBC & Chem 7: 08/19/24 06:46 08/19/24 06:46 Labs: Abnormal Lab Results - Last 24 Hours (Table) 08/18/24 08/18/24 08/18/24 Range/Units 16:10 16:44 20:19 WBC (4.50-10.00) 10*3/uL RBC (4.40-5.60) 10*6/uL Hgb (13.0-17.0) g/dL Hct (39.6-50.0) % MCHC (32.0-37.0) g/dL Immature Gran # (0.00-0.04) 10*3/uL Neutrophils # (Manual) (1.3-7.7) k/uL Metamyelocytes # (Man) (0) k/uL APTT 54.3 H (22.0-30.0) sec BUN (9-20) mg/dL Creatinine (0.66-1.25) mg/dL Glucose (74-99) mg/dL POC Glucose (mg/dL) 376 H 278 H (70-110) mg/dL 08/19/24 08/19/24 08/19/24 Range/Units 06:11 06:46 06:46 WBC 20.15 H (4.50-10.00) 10*3/uL RBC 3.58 L (4.40-5.60) 10*6/uL Hgb 10.8 L (13.0-17.0) g/dL Hct 34.2 L (39.6-50.0) % MCHC 31.6 L (32.0-37.0) g/dL Immature Gran # 0.32 H (0.00-0.04) 10*3/uL Neutrophils # (Manual) 18.33 H (1.3-7.7) k/uL Metamyelocytes # (Man) 0.60 H (0) k/uL APTT (22.0-30.0) sec BUN 72 H (9-20) mg/dL Creatinine 1.33 H (0.66-1.25) mg/dL Glucose 202 H (74-99) mg/dL POC Glucose (mg/dL) 196 H (70-110) mg/dL 08/19/24 08/19/24 Range/Units 06:46 11:25 WBC (4.50-10.00) 10*3/uL RBC (4.40-5.60) 10*6/uL Hgb (13.0-17.0) g/dL Hct (39.6-50.0) % MCHC (32.0-37.0) g/dL Immature Gran # (0.00-0.04) 10*3/uL Neutrophils # (Manual) (1.3-7.7) k/uL Metamyelocytes # (Man) (0) k/uL APTT 48.9 H (22.0-30.0) sec BUN (9-20) mg/dL Creatinine (0.66-1.25) mg/dL Glucose (74-99) mg/dL POC Glucose (mg/dL) 217 H (70-110) mg/dL
[2024-08-19] MEDS: METOPROLOL TARTRATE 50 MG TAB PO SCH (15:33)
[2024-08-19 16:18] LABS: Glucose,Whole Blood 291 mg/dL (70-110)
--- NOTE | 2024-08-19 19:05 | P.PN ---
Subjective Progress Note Date: 08/19/24 On 08/18/2024, patient is being seen in consultation for shortness of breath and abnormal chest x-ray. The patient is 88 and is known to have COPD, diabetes mellitus type 2 coronary artery disease, carotid artery stenosis, hypertension, and hyperlipidemia and based on the previous echocardiogram from 2021, the patient has a preserved LV function with an EF of around 55 to 60% with a grade 2 diastolic heart failure and moderate LVH with mild to moderate pulmonary artery pressure elevation with a PASP of 42. He is known to have nonocclusive coronary artery disease based on a previous cardiac catheterization from 2008. The patient is also known to have a chronic right-sided pleural effusion that h as remained stable over the years. The patient has undergone previous thoracentesis of the right lung back in 2022 and this fluid was felt to be a parapneumonic in nature. Interventional radiologist underwent a thoracentesis back then and subsequent chest x-ray continued to show residual effusion with trapped pleural fluid in the right lung base. A repeat chest x-ray that was done during this current admission and there is obvious worsening of with extensive consolidation involving the right lung more dense in the right lung base. Based on that, the patient was given a CTA of the chest that showed no evidence of any pulmonary embolism. There was an extensive patchy consolidation throughout the right lung and the left lower lobe consistent with multifocal pneumonia. There is also development of a right hilar and subcarinal lymphadenopathy which obviously raises suspicion for malignancy. There is a small right-sided pleural effusion and a smaller left-sided pleural effusion. 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 There is background emphysema. The white cell count is currently at 16.3 with a hemoglobin 10.6 and a platelet count of 319. Normal coagulation profile. BUN 53 with a Of 1.1. Sodium Level Is 140 with a Potassium Level of 4.3. Viral Screen Was Negative. I Was Also Told That the Patient Is Having Some Difficulties with Swallowing As the Patient Coughs during the Swallow and This Obviously Raises Concern for Aspiration Pneumonia. Patient Was Started on IV Zosyn As an Emp[employer] Antibiotic Coverage. The Patient Also Encountered Atrial Fibrillation with Rapid Ventricular Response at around 3 AM This Morning. The Patient Received Metoprolol 25 Mg at That Time. The Patient Was Started on IV Heparin. He Is Currently on 5 L of Oxygen by Nasal Cannula. Cardiology on the Case. Echocardiogram Repeated Showed an Ejection Fraction of 45 to 50% with Mild MR, and Mild TR with Severe Pulmonary Hypertension. On today's evaluation of 08/19/2024, the patient is slightly improved compared to yesterday. Remains weak and lethargic and continues to be short of breath at rest. Afebrile. The patient's current pulse ox is in order of 93% parties of oxygen by nasal cannula. The patient had extensive bilateral pneumonia and bilateral airspace disease right more than left along with a chronic right-sided pleural effusion. The patient's blood cultures are negative for now. The white cell count is at 20.1 which is higher compared to yesterday with a hemoglobin of 7.8 and a platelet count of 326. Patient also has a sodium level of 141, potassium is at 4, bicarbonate 22, BUN 72 with a creatinine of 1.33. TSH is 1.03. Troponins were elevated and proBNP level was also elevated 11,800. Viral screen was negative. The patient remains on broad-spectrum antibiotics. The patient is currently on IV Zosyn. The patient also has a new onset atrial fibrillation. The patient is still slightly tachycardic. Currently on amiodarone drip at 0.5 mg/min and the patient is on IV heparin. IV fluids in the form of normal saline at rate of 50 cc an hour. Swallow evaluation is to be completed in a.m. Objective - Vital Signs Vital signs: Vital Signs Temp 97.5 F L 08/19/24 15:27 Pulse 83 08/19/24 15:27 Resp 23 08/19/24 15:27 BP 89/59 08/19/24 16:04 Pulse Ox 93 L 08/19/24 15:27 FiO2 Intake & Output 08/19/24 08/19/24 08/20/24 06:59 18:59 06:59 Intake Total 234.618 368.061 Balance 234.618 368.061 Weight 71.5 kg Intake: Intake, IV Titration 234.618 248.061 Amount Amiodarone 450 mg In 248.061 Dextrose 5% in Water 250 ml @ 0.5 MG/MIN 16.667 mls/hr IV .Q15H [facility] Rx#: [id number] Heparin Sod,Pork in 0.45% 234.618 NaCl 25,000 unit In 0.45 % NaCl 1 250ml.bag @ 18 UNITS/KG/HR 12.042 mls/hr IV .[id number] [facility] Rx#: [id number] Oral 120 Other: Voiding Method External Catheter External Catheter - Exam The patient appeared well nourished and normally developed. Vital signs as documented. The patient is comfortable on 5 L of oxygen by nasal cannula Head exam is unremarkable. No scleral icterus or corneal arcus noted. Neck is without jugular venous distension, thyromegaly, or carotid bruits. Carotid upstrokes are brisk bilaterally. Lungs sounds are diminished bilaterally especially in the right lung base along with bibasilar crackles. Cardiac exam reveals the PMI to be normally sized and situated. Irregular consistent with atrial fibrillation. First and second heart sounds normal. No murmurs, rubs or gallops. Abdominal exam reveals normal bowel sounds, no masses, no organomegaly and no aortic enlargement. Extremities are nonedematous and both femoral and pedal pulses are normal. Examination of the skin revealed no evidence of significant rashes, suspicious appearing nevi or other concerning lesions. Neurologically, the patient is awake and alert and the patient does not have any focal neurological deficit. Cranial nerves are essentially intact. - Labs CBC & Chem 7: 08/19/24 06:46 08/19/24 06:46 Labs: Abnormal Lab Results - Last 24 Hours (Table) 08/18/24 08/19/24 08/19/24 Range/Units 20:19 06:11 06:46 WBC 20.15 H (4.50-10.00) 10*3/uL RBC 3.58 L (4.40-5.60) 10*6/uL Hgb 10.8 L (13.0-17.0) g/dL Hct 34.2 L (39.6-50.0) % MCHC 31.6 L (32.0-37.0) g/dL Immature Gran # 0.32 H (0.00-0.04) 10*3/uL Neutrophils # (Manual) 18.33 H (1.3-7.7) k/uL Metamyelocytes # (Man) 0.60 H (0) k/uL APTT (22.0-30.0) sec BUN (9-20) mg/dL Creatinine (0.66-1.25) mg/dL Glucose (74-99) mg/dL POC Glucose (mg/dL) 278 H 196 H (70-110) mg/dL 08/19/24 08/19/24 08/19/24 Range/Units 06:46 06:46 11:25 WBC (4.50-10.00) 10*3/uL RBC (4.40-5.60) 10*6/uL Hgb (13.0-17.0) g/dL Hct (39.6-50.0) % MCHC (32.0-37.0) g/dL Immature Gran # (0.00-0.04) 10*3/uL Neutrophils # (Manual) (1.3-7.7) k/uL Metamyelocytes # (Man) (0) k/uL APTT 48.9 H (22.0-30.0) sec BUN 72 H (9-20) mg/dL Creatinine 1.33 H (0.66-1.25) mg/dL Glucose 202 H (74-99) mg/dL POC Glucose (mg/dL) 217 H (70-110) mg/dL 08/19/24 Range/Units 16:12 WBC (4.50-10.00) 10*3/uL RBC (4.40-5.60) 10*6/uL Hgb (13.0-17.0) g/dL Hct (39.6-50.0) % MCHC (32.0-37.0) g/dL Immature Gran # (0.00-0.04) 10*3/uL Neutrophils # (Manual) (1.3-7.7) k/uL Metamyelocytes # (Man) (0) k/uL APTT (22.0-30.0) sec BUN (9-20) mg/dL Creatinine (0.66-1.25) mg/dL Glucose (74-99) mg/dL POC Glucose (mg/dL) 291 H (70-110) mg/dL Assessment and Plan Plan: Acute hypoxic respiratory failure, currently on 5 L of oxygen by nasal cannula. The patient has developed extensive multifocal pneumonia right more than left. Chest x-ray and a CT scan of the chest was reviewed. No evidence of any pulm embolism. Extensive right lung and right lower lobe pulmonary consolidation in addition to multifocal airspace disease. Consider aspiration. Community- acquired pneumonia. The patient is currently on IV Zosyn. Shortness of breath secondary to above Mediastinal lymphadenopathy, right hilar and subcarinal, consider possibility of malignancy COPD Chronic loculated right-sided pleural effusion present since 2022, patient has u africane an IR guided thoracentesis back in 2022 and subsequent chest x-ray showed a stable chronic small right-sided pleural effusion. CHF with preserved LV function/diastolic heart failure New onset atrial fibrillation with rapid ventricular response, rate is controlled and the patient is currently on IV heparin, the patient is on amiodarone drip at 0.5 mg/min. Chronic nonocclusive coronary artery disease, referred to the cardiac catheterization performed back in 2008 Hypertension Hyperlipidemia Carotid artery disease/stenosis Acute leukocytosis secondary to above, white cell count is currently up to 20. Plan Titrate oxygen flow to maintain saturation above 90%, currently on 5 L Swallow evaluation to rule out aspiration Continue IV Zosyn Sputum Gram stain and culture and blood culture Management of A-fib per cardiology. Continue IV heparin Metoprolol for rate control 50 mg p.o. 3 times daily Amiodarone 0.5 mg/min for rate control regarding atrial fibrillation Lantus insulin for blood sugar control 10 units along with a NovoLog sliding scale coverage Lasix 40 mg p.o. daily Continue aspirin Continue amlodipine DuoNeb nebulized treatments [id number] Evaluation of mediastinal lymph nodes at a later stage. May benefit from an EBUS. For now, the priority is to continue with the patient's multifocal pneumonia. Obtain a follow-up chest x-ray in the morning Prognosis is guarded and the patient has a DNR/DNI CODE STATUS Will continue to follow. Time with Patient: Greater than 30
[2024-08-19 20:43] LABS: Glucose,Whole Blood 266 mg/dL (70-110)
[2024-08-20 06:25] LABS: Glucose,Whole Blood 154 mg/dL (70-110)
--- NOTE | 2024-08-20 09:01 | P.PN ---
Subjective Progress Note Date: 08/20/24 This is an 88-year-old male who presented to the emergency department complaints of multiple falls. Patient also reports some increase in shortness of breath. Does not wear oxygen at home during the day however does wear nasal cannula with 2.5 L of oxygen while sleeping. Patient's heart rate has been elevated and he is in A-fib. He remains on a heparin drip. Cardiology and pulmonology are on consult. Patient continues to be short of breath and is currently on 5 liters of oxygen. Objective - Vital Signs Vital signs: Vital Signs Temp 97.6 F 08/20/24 03:00 Pulse 124 H 08/20/24 03:00 Resp 20 08/20/24 03:00 BP 111/70 08/20/24 03:00 Pulse Ox 92 L 08/20/24 03:00 FiO2 Intake & Output 08/19/24 08/20/24 08/20/24 18:59 06:59 18:59 Intake Total 368.061 233.615 Balance 368.061 233.615 Weight 71 kg Intake: Intake, IV Titration 248.061 233.615 Amount Amiodarone 450 mg In 248.061 Dextrose 5% in Water 250 ml @ 0.5 MG/MIN 16.667 mls/hr IV .Q15H [facility] Rx#: [id number] Heparin Sod,Pork in 0.45% 233.615 NaCl 25,000 unit In 0.45 % NaCl 1 250ml.bag @ 18 UNITS/KG/HR 12.042 mls/hr IV .[id number] [facility] Rx#: [id number] Oral 120 Other: Voiding Method External Catheter External Catheter - Constitutional General appearance: Present: cooperative, no acute distress - EENT Eyes: Present: PERRLA - Neck Neck: Present: normal ROM. Absent: lymphadenopathy, rigidity - Respiratory Respiratory: bilateral: wheezing - Cardiovascular Heart sounds: normal: S1, S2 - Gastrointestinal General gastrointestinal: Present: soft. Absent: tenderness - Musculoskeletal Musculoskeletal: Present: generalized weakness - Psychiatric Psychiatric: Present: A&O x's 3 - Labs CBC & Chem 7: 08/19/24 06:46 08/19/24 06:46 Labs: Abnormal Lab Results - Last 24 Hours (Table) 08/19/24 08/19/24 08/19/24 Range/Units 06:46 11:25 16:12 Neutrophils # (Manual) 18.33 H (1.3-7.7) k/uL Metamyelocytes # (Man) 0.60 H (0) k/uL APTT (22.0-30.0) sec POC Glucose (mg/dL) 217 H 291 H (70-110) mg/dL 08/19/24 08/20/24 08/20/24 Range/Units 20:40 05:52 06:22 Neutrophils # (Manual) (1.3-7.7) k/uL Metamyelocytes # (Man) (0) k/uL APTT 57.7 H (22.0-30.0) sec POC Glucose (mg/dL) 266 H 154 H (70-110) mg/dL Assessment and Plan (1) CHF (congestive heart failure) Current Visit: Yes Status: Acute Code(s): I50.9 - HEART FAILURE, UNSPECIFIED SNOMED Code(s): 22621955 (2) CAD (coronary artery disease) Current Visit: No Status: Acute Code(s): I25.10 - ATHSCL HEART DISEASE OF [place] CORONARY ARTERY W/O ANG PCTRS SNOMED Code(s): 24972664 (3) COPD (chronic obstructive pulmonary disease) Current Visit: No Status: Acute Code(s): J44.9 - CHRONIC OBSTRUCTIVE PULMONARY DISEASE, UNSPECIFIED SNOMED Code(s): 92308354 (4) Diabetes Current Visit: No Status: Acute Code(s): E11.9 - TYPE 2 DIABETES MELLITUS WITHOUT COMPLICATIONS SNOMED Code(s): 78296113 (5) Hypertension Current Visit: No Status: Acute Code(s): I10 - ESSENTIAL (PRIMARY) HYPERTENSION SNOMED Code(s): 54867162 (6) Pneumonia Current Visit: No Status: Acute Code(s): J18.9 - PNEUMONIA, UNSPECIFIED ORGANISM SNOMED Code(s): 847753175 (7) Atrial fibrillation Current Visit: Yes Status: Acute Code(s): I48.91 - UNSPECIFIED ATRIAL FIBRILLATION SNOMED Code(s): 55657613 Plan: Appreciate multiple consultants. Check CBC and CMP in the morning. Patient seen and evaluated by nurse practitioner, physician in agreement with plan.
[2024-08-20] MEDS: AMIODARONE 200 MG TAB PO SCH (09:29)
--- NOTE | 2024-08-20 11:26 | P.PN ---
Subjective HISTORY OF PRESENT ILLNESS: This is an 88-year-old male patient of Dr. Vasquez with past medical history of carotid artery stenosis, coronary artery disease, hypertension, dyslipidemia. We have been asked to evaluate the patient for heart failure and elevated troponins. Patient presented to the emergency center due to multiple falls, generalized weakness. Patient apparently had 2 falls yesterday and is very difficult for him to get up off the floor. He is having some shortness of breath this morning. Blood pressure 117/69, heart rate 108, pulse ox 92% on 5 L nasal cannula. Patient has been started on IV Lasix 40 mg every 12 hours. -EKG: Sinus rhythm with right bundle branch block. -Chest x-ray: Clinical correlation for heart failure. Pulmonary edema may be present. -Pelvis x-ray: No acute process. -CT brain and cervical spine showed no acute intracranial process and degenerative disc changes of the cervical spine. No acute osseous abnormality. -Laboratory studies: WBC 14.8, hemoglobin 11, sodium 137, potassium 4.5, BUN 51 creatinine 1.12. Troponin 0.720. Alkaline phosphatase 164. -Home cardiac medications: Amlodipine 10 mg daily, atorvastatin 40 mg daily, enalapril 10 mg twice daily, Lasix 20 mg daily, metoprolol tartrate 25 mg twice daily. -Echocardiogram performed 02/09/2022 in the office revealed EF of 55 to 60% with grade 2 diastolic dysfunction. Moderate concentric left ventricular hypertrophy. Mild mitral regurgitation. Mild to moderate tricuspid regurgitation. PASP 42 mmHg. Mild pulmonic regurgitation. -Lexiscan Cardiolite stress test performed in the office on 06/19/2020 revealed negative stress test by EKG criteria. Abnormal nuclear scan showing evidence of prior apical myocardial infarction with preserved LV function without any ischemia. -Cardiac catheterization performed 2008 revealed total occlusion of the mid LAD with very late filling of the mid left anterior descending coronary artery. Diffuse disease in the nondominant right coronary artery and also in the circumflex coronary artery which had moderate disease but noncritical. The left ventricular function was not assessed. Patient subsequently underwent stenting of the totally occluded mid left anterior descending coronary artery in the setting of a subacute myocardial infarction. 08/18 Patient seen and examined. Patient heart rate was up to the 130s around 3 AM in atrial fibrillation and received a dose of metoprolol tartrate 25 mg at that time. Heart rate is still elevated but in the 116 range and blood pressure is low at 92/49, pulse ox 97% on 5 L nasal cannula. Repeat blood work reveals hemoglobin 11.7, WBC 15.7, BUN 53 creatinine 1.13. D-dimer was 1.83. proBNP 11,800. Repeat troponin 0.868. Echocardiogram reveals EF 45 to 50% with mild mitral and tricuspid regurgitation and severe pulmonary hypertension. 08/19 Patient seen and examined. Patient went into A-fib with RVR yesterday afternoon and has been started on amiodarone drip. He remains in atrial fibrillation with heart rate 130. Yesterday, patient was also started on IV antibiotics for pneumonia and is followed by pulmonary medicine. Due to elevated D-dimer, patient was started on high intensity protocol heparin yesterday. CTA was nega tive for PE and the heparin drip was changed to low intensity protocol which we will continue due to new onset of atrial fibrillation. 08/20/2024 Patient examined this morning at the bedside. Patient currently denies chest pain or pressure. He denies shortness of breath. He remains on IV heparin. Telemetry reveals atrial fibrillation with heart rate between [id number]. PHYSICAL EXAM: VITAL SIGNS: Reviewed. GENERAL: Well-developed in no acute distress. NECK: Supple. No JVD or thyromegaly LUNGS: Respirations even and unlabored. Lungs essentially clear to auscultation bilaterally. HEART: Regular rate and rhythm. S1 and S2 heard. EXTREMITIES: Normal range of motion. No clubbing or cyanosis. Peripheral pulses intact. No lower extremity edema ASSESSMENT: Generalized weakness with multiple falls Acute on chronic diastolic heart failure History of coronary artery disease with previous stent to the LAD in 2008 Carotid artery stenosis bilaterally Hypertension Dyslipidemia New onset paroxysmal atrial fibrillation with RVR Elevated D-dimer, CTA negative for PE PLAN: Patient has been transition to oral diuretics on 08/18/2024. Continue Lasix 40 mg daily Patient currently on IV heparin. May continue at this time. Patient is high risk for oral anticoagulation upon discharge due to frequent falls. Continue metoprolol tartrate 50 mg 3 times a day Add oral amiodarone 400 mg twice daily Continue telemetry monitoring Further recommendations pending patient course Nurse practitioner note has been reviewed by physician. Signing provider agrees with the documented findings, assessment, and plan of care documented by TRAINING ANALYST as a scribe. Objective - Vital Signs Vital signs: Vital Signs Temp 97.6 F 04/28/25 03:00 Pulse 122 H 08/20/24 09:14 Resp 20 08/20/24 03:00 BP 111/70 08/20/24 03:00 Pulse Ox 92 L 08/20/24 03:00 FiO2 Intake & Output 08/19/24 08/20/24 08/20/24 18:59 06:59 18:59 Intake Total 368.061 233.615 Balance 368.061 233.615 Weight 71 kg Intake: Intake, IV Titration 248.061 233.615 Amount Amiodarone 450 mg In 248.061 Dextrose 5% in Water 250 ml @ 0.5 MG/MIN 16.667 mls/hr IV .Q15H [facility] Rx#: [id number] Heparin Sod,Pork in 0.45% 233.615 NaCl 25,000 unit In 0.45 % NaCl 1 250ml.bag @ 18 UNITS/KG/HR 12.042 mls/hr IV .[id number] [facility] Rx#: [id number] Oral 120 Other: Voiding Method External Catheter External Catheter - Labs CBC & Chem 7: 08/19/24 06:46 08/19/24 06:46 Labs: Abnormal Lab Results - Last 24 Hours (Table) 08/19/24 08/19/24 08/19/24 Range/Units 11:25 16:12 20:40 APTT (22.0-30.0) sec POC Glucose (mg/dL) 217 H 291 H 266 H (70-110) mg/dL 08/20/24 08/20/24 Range/Units 05:52 06:22 APTT 57.7 H (22.0-30.0) sec POC Glucose (mg/dL) 154 H (70-110) mg/dL
[2024-08-20 11:29] LABS: Glucose,Whole Blood 196 mg/dL (70-110)
--- NOTE | 2024-08-20 15:13 | P.PN ---
Subjective Progress Note Date: 08/20/24 Principal diagnosis: Acute hypoxic respiratory failure with acute multifocal pneumonia, consider aspiration pneumonia On 08/18/2024, patient is being seen in consultation for shortness of breath and abnormal chest x-ray. The patient is 88 and is known to have COPD, diabetes jabari litus type 2 coronary artery disease, carotid artery stenosis, hypertension, and hyperlipidemia and based on the previous echocardiogram from 2021, the patient has a preserved LV function with an EF of around 55 to 60% with a grade 2 diastolic heart failure and moderate LVH with mild to moderate pulmonary artery pressure elevation with a PASP of 42. He is known to have nonocclusive coronary artery disease based on a previous cardiac catheterization from 2008. The patient is also known to have a chronic right-sided pleural effusion that has remained stable over the years. The patient has undergone previous thoracentesis of the right lung back in 2022 and this fluid was felt to be a parapneumonic in nature. Interventional radiologist underwent a thoracentesis back then and subsequent chest x-ray continued to show residual effusion with trapped pleural fluid in the right lung base. A repeat chest x-ray that was done during this current admission and there is obvious worsening of with extensive consolidation involving the right lung more dense in the right lung base. Based on that, the patient was given a CTA of the chest that showed no evidence of any pulmonary embolism. There was an extensive patchy consolidation throughout the right lung and the left lower lobe consistent with multifocal pneumonia. There is also development of a right hilar and subcarinal lymphadenopathy which obviously raises suspicion for malignancy. There is a small right-sided pleural effusion and a smaller left-sided pleural effusion. 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 There is background emphysema. The white cell coun t is currently at 16.3 with a hemoglobin 10.6 and a platelet count of 319. Normal coagulation profile. BUN 53 with a Of 1.1. Sodium Level Is 140 with a Potassium Level of 4.3. Viral Screen Was Negative. I Was Also Told That the Patient Is Having Some Difficulties with Swallowing As the Patient Coughs during the Swallow and This Obviously Raises Concern for Aspiration Pneumonia. Patient Was Started on IV Zosyn As an Empiric Antibiotic Coverage. The Patient Also Encountered Atrial Fibrillation with Rapid Ventricular Response at around 3 AM This Morning. The Patient Received Metoprolol 25 Mg at That Time. The Patient Was Started on IV Heparin. He Is Currently on 5 L of Oxygen by Nasal Cannula. Cardiology on the Case. Echocardiogram Repeated Showed an Ejection Fraction of 45 to 50% with Mild MR, and Mild TR with Severe Pulmonary Hypertension. On today's evaluation of 08/19/2024, the patient is slightly improved compared to yesterday. Remains weak and lethargic and continues to be short of breath at rest. Afebrile. The patient's current pulse ox is in order of 93% parties of oxygen by nasal cannula. The patient had extensive bilateral pneumonia and bilateral airspace disease right more than left along with a chronic right-sided pleural effusion. The patient's blood cultures are negative for now. The white cell count is at 20.1 which is higher compared to yesterday with a hemoglobin of 7.8 and a platelet count of 326. Patient also has a sodium level of 141, pota ssium is at 4, bicarbonate 22, BUN 72 with a creatinine of 1.33. TSH is 1.03. Troponins were elevated and proBNP level was also elevated 11,800. Viral screen was negative. The patient remains on broad-spectrum antibiotics. The patient is currently on IV Zosyn. The patient also has a new onset atrial fibrillation. The patient is still slightly tachycardic. Currently on amiodarone drip at 0.5 mg/min and the patient is on IV heparin. IV fluids in the form of normal saline at rate of 50 cc an hour. Swallow evaluation is to be completed in a.m. Patient was seen today on 08/20/2024, patient is not in distress, on 5 L nasal cannula O2 sat is 95% hemodynamically stable, seems to be alert, but slightly confused. Chest x-ray clearly showed bilateral multifocal infiltrates. Continues to have leukocytosis with WBC of 20.15 hemoglobin 10.8 electrolytes are normal however his BUN is 72 creatinine is up to 1.33. BNP level is elevated 11,800 and troponin is also elevated. Remains on heparin for atrial fibrillation heart rate ranging between 100 and 120. Objective - Vital Signs Vital signs: Vital Signs Temp 97.5 F L 08/20/24 08:00 Pulse 120 H 08/20/24 12:26 Resp 20 08/20/24 08:00 BP 118/58 08/20/24 12:00 Pulse Ox 95 08/20/24 12:00 FiO2 Intake & Output 08/19/24 08/20/24 08/20/24 18:59 06:59 18:59 Intake Total 368.061 233.615 Balance 368.061 233.615 Weight 71 kg Intake: Intake, IV Titration 248.061 233.615 Amount Amiodarone 450 mg In 248.061 Dextrose 5% in Water 250 ml @ 0.5 MG/MIN 16.667 mls/hr IV .Q15H [facility] Rx#: [id number] Heparin Sod,Pork in 0.45% 233.615 NaCl 25,000 unit In 0.45 % NaCl 1 250ml.bag @ 18 UNITS/KG/HR 12.042 mls/hr IV .[id number] [facility] Rx#: [id number] Oral 120 Other: Voiding Method External Catheter External Catheter External Catheter - Exam GENERAL: Revealed 88-year-old white male on nasal cannula not in distress Head: Atraumatic, normocephalic PERRLA, EOMI, nonicteric NECK: Supple. No JVD or thyromegaly LUNGS: Crackles bilaterally no rhonchi no wheezes HEART: Regular rhythm no S3 gallop 2/6 systolic murmur throughout the precordium Abdomen: Soft nontender No rebound no guarding Extremities: No clubbing edema or cyanosis Skin: No rashes Neurologic: Alert oriented x 3 no focal deficit - Labs CBC & Chem 7: 08/19/24 06:46 08/19/24 06:46 Labs: Abnormal Lab Results - Last 24 Hours (Table) 08/19/24 08/19/24 08/20/24 Range/Units 16:12 20:40 05:52 APTT 57.7 H (22.0-30.0) sec POC Glucose (mg/dL) 291 H 266 H (70-110) mg/dL 08/20/24 08/20/24 Range/Units 06:22 11:27 APTT (22.0-30.0) sec POC Glucose (mg/dL) 154 H 196 H (70-110) mg/dL Assessment and Plan Assessment: Impression: Acute hypoxic respiratory failure Acute on chronic diastolic congestive heart failure Suspect some component of pneumonia/consider aspiration pneumonia Benign essential hypertension Dyslipidemia Paroxysmal atrial fibrillation Generalized weakness and multiple falls Acute leukocytosis Underlying COPD Mediastinal lymphadenopathy with right hilar and subcarinal adenopathy needs outpatient evaluation Recommendation: Continue oxygen and titrate accordingly Swallow evaluation to rule out aspiration Continue Zosyn empirically Continue diuretics Continue IV heparin Continue cardiac meds Continue bronchodilators Consider outpatient follow-up regarding his lymphadenopathy which most likely is reactive but malignancy is not entirely ruled out CODE STATUS is DNR Will continue to Time with Patient: Less than 30
[2024-08-20] MEDS ORDERED: METOPROLOL TARTRATE 50 MG TAB PO SCH (16:00)
[2024-08-20 16:32] LABS: Glucose,Whole Blood 176 mg/dL (70-110)
[2024-08-20 19:28] LABS: Glucose,Whole Blood 183 mg/dL (70-110)
[2024-08-20] MEDS: AMIODARONE 360 MG in DEXTROSE 5% IN WATER 200 ML IV ONE (20:36)
[2024-08-21] MEDS: AMIODARONE 450 MG in DEXTROSE 5% IN WATER 250 ML IV SCH (02:51)
[2024-08-21 06:04] LABS: Glucose,Whole Blood 206 mg/dL (70-110)
[2024-08-21 07:35] LABS: HCT 33.6 % (39.6-50.0); HGB 10.8 g/dL (13.0-17.0); MCH 29.8 pg (27.0-32.0); MCHC 32.1 g/dL (32.0-37.0); MCV 92.8 fL (80.0-97.0); Mean Platelet Volume 10.4 fL (9.5-12.2); Platelet Count 399 10*3/uL (140-440); RBC 3.62 10*6/uL (4.40-5.60); RDW 14.4 % (11.5-14.5); WBC 23.29 10*3/uL (4.50-10.00)
[2024-08-21 08:36] LABS: ALT 39 U/L (4-49); AST 72 U/L (17-59); African American GFR (CKD) 47 (>60 ml/min/1.73 sqM); Albumin 2.8 g/dL (3.5-5.0); Alkaline Phosphatase 152 U/L (38-126); Anion Gap 13 mmol/L; Blood Urea Nitrogen 99 mg/dL (9-20); Calcium 8.3 mg/dL (8.4-10.2); Carbon Dioxide 26 mmol/L (22-30); Chloride 105 mmol/L (98-107); Glucose 196 mg/dL (74-99); Non-African American GFR(CKD) 40 (>60 ml/min/1.73 sqM); Potassium 3.5 mmol/L (3.5-5.1); Sodium 144 mmol/L (137-145); Total Bilirubin 0.7 mg/dL (0.2-1.3); Total Protein 5.6 g/dL (6.3-8.2)
--- NOTE | 2024-08-21 08:37 | P.PN ---
Subjective Progress Note Date: 08/21/24 This is an 88-year-old male who presented to the emergency department complaints of multiple falls. Patient also reports some increase in shortness of breath. Does not wear oxygen at home during the day however does wear nasal cannula with 2.5 L of oxygen while sleeping. Patient's heart rate has been elevated and he is in A-fib. He remains on a heparin drip. Cardiology and pulmonology are on consult. Patient continues to be short of breath and is currently on 5 liters of oxygen. 08/21/2024 Patient seen this morning lying in bed. Patient continues to have tachycardia. He is now on 8 L of oxygen. Nursing staff concerned for possible aspiration. He has been NPO since yesterday afternoon. Speech therapy will reevaluate this morning. Chest x-ray ordered for this morning. Nursing staff also reports amiodarone drip has been restarted. Objective - Vital Signs Vital signs: Vital Signs Temp 97.5 F L 08/21/24 03:00 Pulse 108 H 08/21/24 08:03 Resp 20 08/21/24 03:00 BP 95/63 08/21/24 03:00 Pulse Ox 96 08/21/24 07:53 FiO2 Intake & Output 08/20/24 08/21/24 08/21/24 18:59 06:59 18:59 Intake Total 230.002 Output Total 250 Balance -19.998 Weight 74 kg Intake: Intake, IV Titration 230.002 Amount Heparin Sod,Pork in 0.45% 230.002 NaCl 25,000 unit In 0.45 % NaCl 1 250ml.bag @ 18 UNITS/KG/HR 12.042 mls/hr IV .[id number] [facility] [place] Rx#: [id number] Output: Urine 250 Other: Voiding Method External Catheter External Catheter - Constitutional General appearance: Present: cooperative - EENT Eyes: Present: PERRLA - Neck Neck: Present: normal ROM. Absent: lymphadenopathy, rigidity - Respiratory Respiratory: bilateral: wheezing - Cardiovascular Heart sounds: normal: S1, S2 - Gastrointestinal General gastrointestinal: Present: soft. Absent: tenderness - Integumentary Integumentary: Present: normal, normal turgor - Musculoskeletal Musculoskeletal: Present: generalized weakness - Psychiatric Psychiatric: Present: A&O x's 3 - Labs CBC & Chem 7: 08/21/24 05:59 08/19/24 06:46 Labs: Abnormal Lab Results - Last 24 Hours (Table) 08/20/24 08/20/24 08/20/24 Range/Units 11:27 16:30 19:25 WBC (4.50-10.00) 10*3/uL RBC (4.40-5.60) 10*6/uL Hgb (13.0-17.0) g/dL Hct (39.6-50.0) % APTT (22.0-30.0) sec POC Glucose (mg/dL) 196 H 176 H 183 H (70-110) mg/dL 08/21/24 08/21/24 08/21/24 Range/Units 05:59 05:59 06:03 WBC 23.29 H (4.50-10.00) 10*3/uL RBC 3.62 L (4.40-5.60) 10*6/uL Hgb 10.8 L (13.0-17.0) g/dL Hct 33.6 L (39.6-50.0) % APTT 59.1 H (22.0-30.0) sec POC Glucose (mg/dL) 206 H (70-110) mg/dL Assessment and Plan (1) CHF (congestive heart failure) Current Visit: Yes Status: Acute Code(s): I50.9 - HEART FAILURE, UNSPECIFIED SNOMED Code(s): 00167224 (2) CAD (coronary artery disease) Current Visit: No Status: Acute Code(s): I25.10 - ATHSCL HEART DISEASE OF [place] CORONARY ARTERY W/O ANG PCTRS SNOMED Code(s): 86580845 (3) COPD (chronic obstructive pulmonary disease) Current Visit: No Status: Acute Code(s): J44.9 - CHRONIC OBSTRUCTIVE PULMONARY DISEASE, UNSPECIFIED SNOMED Code(s): 68663995 (4) Diabetes Current Visit: No Status: Acute Code(s): E11.9 - TYPE 2 DIABETES MELLITUS WITHOUT COMPLICATIONS SNOMED Code(s): 22260721 (5) Hypertension Current Visit: No Status: Acute Code(s): I10 - ESSENTIAL (PRIMARY) HYPERTENSION SNOMED Code(s): 47753828 (6) Pneumonia Current Visit: No Status: Acute Code(s): J18.9 - PNEUMONIA, UNSPECIFIED ORG ANISM SNOMED Code(s): 869227291 (7) Atrial fibrillation Current Visit: Yes Status: Acute Code(s): I48.91 - UNSPECIFIED ATRIAL FIBRILLATION SNOMED Code(s): 34488345 Plan: Appreciate multiple consultants. Check CBC and CMP in the morning. Await further assessment from speech therapy. Patient seen and evaluated by nurse practitioner, physician in agreement with plan.
--- NOTE | 2024-08-21 09:03 | XR ---
EXAMINATION TYPE: XR chest 1V portable DATE OF EXAM: 08/21/2024 8:46 AM COMPARISON: 07/27/2024 CLINICAL INDICATION: Male, 88 years old with history of aspiration PNA, , FINDINGS: Extensive opacity right mid and lower lung and left lower lung and interstitial changes throughout th e remainder of the upper and midlungs. Overall opacities have worsened compared to prior. Atheroscler otic calcifications throughout the thoracic aorta. IMPRESSION: Bibasilar predominant right greater than left airspace disease with ongoing background interstitial c hanges. Worsening infectious or aspiration pneumonitis versus sequela of CHF are all in the different ial. [facility], , 08/21/2024 9:01 AM
[2024-08-21] MEDS: METOPROLOL TARTRATE 5 MG/5 ML VIAL IVP SCH (09:14)
--- NOTE | 2024-08-21 10:58 | P.PN ---
Subjective HISTORY OF PRESENT ILLNESS: This is an 88-year-old male patient of Dr. Vasquez with past medical history of carotid artery stenosis, coronary artery disease, hypertension, dyslipidemia. We have been asked to evaluate the patient for heart failure and elevated troponins. Patient presented to the emergency center due to multiple falls, generalized weakness. Patient apparently had 2 falls yesterday and is very difficult for him to get up off the floor. He is having some shortness of breath this morning. Blood pressure 117/69, heart rate 108, pulse ox 92% on 5 L nasal cannula. Patient has been started on IV Lasix 40 mg every 12 hours. -EKG: Sinus rhythm with right bundle branch block. -Chest x-ray: Clinical correlation for heart failure. Pulmonary edema may be present. -Pelvis x-ray: No acute process. -CT brain and cervical spine showed no acute intracranial process and degenerative disc changes of the cervical spine. No acute osseous abnormality. -Laboratory studies: WBC 14.8, hemoglobin 11, sodium 137, potassium 4.5, BUN 51 creatinine 1.12. Troponin 0.720. Alkaline phosphatase 164. -Home cardiac medications: Amlodipine 10 mg daily, atorvastatin 40 mg daily, enalapril 10 mg twice daily, Lasix 20 mg daily, metoprolol tartrate 25 mg twice daily. -Echocardiogram performed 02/09/2022 in the office revealed EF of 55 to 60% with grade 2 diastolic dysfunction. Moderate concentric left ventricular hypertrophy. Mild mitral regurgitation. Mild to moderate tricuspid regurgitation. PASP 42 mmHg. Mild pulmonic regurgitation. -Lexiscan Cardiolite stress test performed in the office on 06/19/2020 revealed negative stress test by EKG criteria. Abnormal nuclear scan showing evidence of prior apical myocardial infarction with preserved LV function without any ischemia. -Cardiac catheterization performed 2008 revealed total occlusion of the mid LAD with very late filling of the mid left anterior descending coronary artery. Diffuse disease in the nondominant right coronary artery and also in the circumflex coronary artery which had moderate disease but noncritical. The left ventricular function was not assessed. Patient subsequently underwent stenting of the totally occluded mid left anterior descending coronary artery in the setting of a subacute myocardial infarction. 08/18 Patient seen and examined. Patient heart rate was up to the 130s around 3 AM in atrial fibrillation and received a dose of metoprolol tartrate 25 mg at that time. Heart rate is still elevated but in the 116 range and blood pressure is low at 92/49, pulse ox 97% on 5 L nasal cannula. Repeat blood work reveals hemoglobin 11.7, WBC 15.7, BUN 53 creatinine 1.13. D-dimer was 1.83. proBNP 11,800. Repeat troponin 0.868. Echocardiogram reveals EF 45 to 50% with mild mitral and tricuspid regurgitation and severe pulmonary hypertension. 08/19 Patient seen and examined. Patient went into A-fib with RVR yesterday afternoon and has been started on amiodarone drip. He remains in atrial fibrillation with heart rate 130. Yesterday, patient was also started on IV antibiotics for pneumonia and is followed by pulmonary medicine. Due to elevated D-dimer, patient was started on high intensity protocol heparin yesterday. CTA was nega tive for PE and the heparin drip was changed to low intensity protocol which we will continue due to new onset of atrial fibrillation. 08/20/2024 Patient examined this morning at the bedside. Patient currently denies chest pain or pressure. He denies shortness of breath. He remains on IV heparin. Telemetry reveals atrial fibrillation with heart rate between [id number]. 08/21/2024 Patient examined this morning at bedside. Patient is currently n.p.o. as he is having episodes of possible aspiration with oral intake. Patient was placed back on IV amiodarone for rate control. Telemetry this morning reveals atrial fibrillation with a heart in the 120s. PHYSICAL EXAM: VITAL SIGNS: Reviewed. GENERAL: Well-developed in no acute distress. NECK: Supple. No JVD or thyromegaly LUNGS: Respirations even and unlabored. Lungs essentially clear to auscultation bilaterally. HEART: Tachycardic. Irregular rate and rhythm. S1 and S2 heard. EXTREMITIES: Normal range of motion. No clubbing or cyanosis. Peripheral pulses intact. No lower extremity edema ASSESSMENT: Generalized weakness with multiple falls Acute on chronic diastolic heart failure History of coronary artery disease with previous stent to the LAD in 2008 Carotid artery stenosis bilaterally Hypertension Dyslipidemia New onset paroxysmal atrial fibrillation with RVR Elevated D-dimer, CTA negative for PE PLAN: Patient currently n.p.o. due to possible aspiration Patient currently on IV heparin. May continue at this time. Patient is high risk for oral anticoagulation upon discharge due to frequent falls. Continue IV amiodarone Begin IV push metoprolol for rate control until patient can take oral medications Continue telemetry monitoring Further recommendations pending patient course Nurse practitioner note has been reviewed by physician. Signing provider agrees with the documented findings, assessment, and plan of care documented by [employer] as a scribe. Objective - Vital Signs Vital signs: Vital Signs Temp 97.5 F L 08/21/24 03:00 Pulse 108 H 08/21/24 08:03 Resp 20 08/21/24 03:00 BP 95/63 08/21/24 03:00 Pulse Ox 96 08/21/24 07:53 FiO2 Intake & Output 08/20/24 08/21/24 08/21/24 18:59 06:59 18:59 Intake Total 230.002 Output Total 250 Balance -19.998 Weight 74 kg 74 kg Intake: Intake, IV Titration 230.002 Amount Heparin Sod,Pork in 0.45% 230.002 NaCl 25,000 unit In 0.45 % NaCl 1 250ml.bag @ 18 UNITS/KG/HR 12.042 mls/hr IV .[id number] [facility] Rx#: [id number] Output: Urine 250 Other: Voiding Method External Catheter External Catheter - Labs CBC & Chem 7: 08/21/24 05:59 08/21/24 05:59 Labs: Abnormal Lab Results - Last 24 Hours (Table) 08/20/24 08/20/24 08/20/24 Range/Units 11:27 16:30 19:25 WBC (4.50-10.00) 10*3/uL RBC (4.40-5.60) 10*6/uL Hgb (13.0-17.0) g/dL Hct (39.6-50.0) % APTT (22.0-30.0) sec BUN (9-20) mg/dL Creatinine (0.66-1.25) mg/dL Glucose (74-99) mg/dL POC Glucose (mg/dL) 196 H 176 H 183 H (70-110) mg/dL Calcium (8.4-10.2) mg/dL AST (17-59) U/L Alkaline Phosphatase (38-126) U/L Total Protein (6.3-8.2) g/dL Albumin (3.5-5.0) g/dL 08/21/24 08/21/24 08/21/24 Range/Units 05:59 05:59 05:59 WBC 23.29 H (4.50-10.00) 10*3/uL RBC 3.62 L (4.40-5.60) 10*6/uL Hgb 10.8 L (13.0-17.0) g/dL Hct 33.6 L (39.6-50.0) % APTT 59.1 H (22.0-30.0) sec BUN 99 H (9-20) mg/dL Creatinine 1.54 H (0.66-1.25) mg/dL Glucose 196 H (74-99) mg/dL POC Glucose (mg/dL) (70-110) mg/dL Calcium 8.3 L (8.4-10.2) mg/dL AST 72 H (17-59) U/L Alkaline Phosphatase 152 H (38-126) U/L Total Protein 5.6 L (6.3-8.2) g/dL Albumin 2.8 L (3.5-5.0) g/dL 08/21/24 Range/Units 06:03 WBC (4.50-10.00) 10*3/uL RBC (4.40-5.60) 10*6/uL Hgb (13.0-17.0) g/dL Hct (39.6-50.0) % APTT (22.0-30.0) sec BUN (9-20) mg/dL Creatinine (0.66-1.25) mg/dL Glucose (74-99) mg/dL POC Glucose (mg/dL) 206 H (70-110) mg/dL Calcium (8.4-10.2) mg/dL AST (17-59) U/L Alkaline Phosphatase (38-126) U/L Total Protein (6.3-8.2) g/dL Albumin (3.5-5.0) g/dL
[2024-08-21 11:25] LABS: Glucose,Whole Blood 202 mg/dL (70-110)
--- NOTE | 2024-08-21 12:35 | P.PN ---
Subjective Progress Note Date: 08/21/24 Principal diagnosis: Acute hypoxic respiratory failure with acute multifocal pneumonia, consider aspiration pneumonia On 08/18/2024, patient is being seen in consultation for shortness of breath and abnormal chest x-ray. The patient is 88 and is known to have COPD, diabetes jabari litus type 2 coronary artery disease, carotid artery stenosis, hypertension, and hyperlipidemia and based on the previous echocardiogram from 2021, the patient has a preserved LV function with an EF of around 55 to 60% with a grade 2 diastolic heart failure and moderate LVH with mild to moderate pulmonary artery pressure elevation with a PASP of 42. He is known to have nonocclusive coronary artery disease based on a previous cardiac catheterization from 2008. The patient is also known to have a chronic right-sided pleural effusion that has remained stable over the years. The patient has undergone previous thoracentesis of the right lung back in 2022 and this fluid was felt to be a parapneumonic in nature. Interventional radiologist underwent a thoracentesis back then and subsequent chest x-ray continued to show residual effusion with trapped pleural fluid in the right lung base. A repeat chest x-ray that was done during this current admission and there is obvious worsening of with extensive consolidation involving the right lung more dense in the right lung base. Based on that, the patient was given a CTA of the chest that showed no evidence of any pulmonary embolism. There was an extensive patchy consolidation throughout the right lung and the left lower lobe consistent with multifocal pneumonia. There is also development of a right hilar and subcarinal lymphadenopathy which obviously raises suspicion for malignancy. There is a small right-sided pleural effusion and a smaller left-sided pleural effusion. 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 There is background emphysema. The white cell coun t is currently at 16.3 with a hemoglobin 10.6 and a platelet count of 319. Normal coagulation profile. BUN 53 with a Of 1.1. Sodium Level Is 140 with a Potassium Level of 4.3. Viral Screen Was Negative. I Was Also Told That the Patient Is Having Some Difficulties with Swallowing As the Patient Coughs during the Swallow and This Obviously Raises Concern for Aspiration Pneumonia. Patient Was Started on IV Zosyn As an Empiric Antibiotic Coverage. The Patient Also Encountered Atrial Fibrillation with Rapid Ventricular Response at around 3 AM This Morning. The Patient Received Metoprolol 25 Mg at That Time. The Patient Was Started on IV Heparin. He Is Currently on 5 L of Oxygen by Nasal Cannula. Cardiology on the Case. Echocardiogram Repeated Showed an Ejection Fraction of 45 to 50% with Mild MR, and Mild TR with Severe Pulmonary Hypertension. On today's evaluation of 08/19/2024, the patient is slightly improved compared to yesterday. Remains weak and lethargic and continues to be short of breath at rest. Afebrile. The patient's current pulse ox is in order of 93% parties of oxygen by nasal cannula. The patient had extensive bilateral pneumonia and bilateral airspace disease right more than left along with a chronic right-sided pleural effusion. The patient's blood cultures are negative for now. The white cell count is at 20.1 which is higher compared to yesterday with a hemoglobin of 7.8 and a platelet count of 326. Patient also has a sodium level of 141, pota ssium is at 4, bicarbonate 22, BUN 72 with a creatinine of 1.33. TSH is 1.03. Troponins were elevated and proBNP level was also elevated 11,800. Viral screen was negative. The patient remains on broad-spectrum antibiotics. The patient is currently on IV Zosyn. The patient also has a new onset atrial fibrillation. The patient is still slightly tachycardic. Currently on amiodarone drip at 0.5 mg/min and the patient is on IV heparin. IV fluids in the form of normal saline at rate of 50 cc an hour. Swallow evaluation is to be completed in a.m. Patient was seen today on 08/20/2024, patient is not in distress, on 5 L nasal cannula O2 sat is 95% hemodynamically stable, seems to be alert, but slightly confused. Chest x-ray clearly showed bilateral multifocal infiltrates. Continues to have leukocytosis with WBC of 20.15 hemoglobin 10.8 electrolytes are normal however his BUN is 72 creatinine is up to 1.33. BNP level is elevated 11,800 and troponin is also elevated. Remains on heparin for atrial fibrillation heart rate ranging between 100 and 120. Patient was seen today on 08/21/2024, remains marginal at best. Actually his chest x-ray is getting worse, his FiO2 requirement is increasing. He is now on 8 L high flow nasal cannula with marginal O2 sats of 92% patient is tachycardic rate ranging between 108 up to 124. Blood pressure is stable. WBC count is up to 23.29 hemoglobin 10.8 electrolytes are normal BUN is 99 creatinine 1.54, seems to be worsening with diuretics. Patient remains intermittently confused, his chest x-ray showed worsening bilateral airspace disease. Patient failed his swallow evaluation, I believe the patient is experiencing ongoing aspiration pneumonia. Presently n.p.o. as recommended by speech therapy. Objective - Vital Signs Vital signs: Vital Signs Temp 97.6 F 08/21/24 08:00 Pulse 124 H 08/21/24 11:43 Resp 20 08/21/24 08:00 BP 115/73 08/21/24 08:00 Pulse Ox 92 L 08/21/24 08:00 FiO2 Intake & Output 08/20/24 08/21/24 08/21/24 18:59 06:59 18:59 Intake Total 230.002 Output Total 250 100 Balance -19.998 -100 Weight 74 kg 74 kg Intake: Intake, IV Titration 230.002 Amount Heparin Sod,Pork in 0.45% 230.002 NaCl 25,000 unit In 0.45 % NaCl 1 250ml.bag @ 18 UNITS/KG/HR 12.042 mls/hr IV .[id number] [facility] Rx#: [id number] Output: Urine 250 Post Void Residual 100 Other: Voiding Method External Catheter External Catheter External Catheter - Exam GENERAL: Revealed 88-year-old white male on 8 L high flow nasal cannula Head: Atraumatic, normocephalic PERRLA, EOMI, nonicteric NECK: Supple. No JVD or thyromegaly LUNGS: Crackles, and rhonchi noted bilaterally HEART: Regular rhythm no S3 gallop 2/6 systolic murmur throughout the precordium Abdomen: Soft nontender No rebound no guarding Extremities: No clubbing edema or cyanosis Skin: No rashes Neurologic: Alert oriented x 3 no focal deficit, intermittently confused - Labs CBC & Chem 7: 08/21/24 05:59 08/21/24 05:59 Labs: Abnormal Lab Results - Last 24 Hours (Table) 08/20/24 08/20/24 08/21/24 Range/Units 16:30 19:25 05:59 WBC 23.29 H (4.50-10.00) 10*3/uL RBC 3.62 L (4.40-5.60) 10*6/uL Hgb 10.8 L (13.0-17.0) g/dL Hct 33.6 L (39.6-50.0) % APTT (22.0-30.0) sec BUN (9-20) mg/dL Creatinine (0.66-1.25) mg/dL Glucose (74-99) mg/dL POC Glucose (mg/dL) 176 H 183 H (70-110) mg/dL Calcium (8.4-10.2) mg/dL AST (17-59) U/L Alkaline Phosphatase (38-126) U/L Total Protein (6.3-8.2) g/dL Albumin (3.5-5.0) g/dL 08/21/24 08/21/24 08/21/24 Range/Units 05:59 05:59 06:03 WBC (4.50-10.00) 10*3/uL RBC (4.40-5.60) 10*6/uL Hgb (13.0-17.0) g/dL Hct (39.6-50.0) % APTT 59.1 H (22.0-30.0) sec BUN 99 H (9-20) mg/dL Creatinine 1.54 H (0.66-1.25) mg/dL Glucose 196 H (74-99) mg/dL POC Glucose (mg/dL) 206 H (70-110) mg/dL Calcium 8.3 L (8.4-10.2) mg/dL AST 72 H (17-59) U/L Alkaline Phosphatase 152 H (38-126) U/L Total Protein 5.6 L (6.3-8.2) g/dL Albumin 2.8 L (3.5-5.0) g/dL 08/21/24 Range/Units 11:24 WBC (4.50-10.00) 10*3/uL RBC (4.40-5.60) 10*6/uL Hgb (13.0-17.0) g/dL Hct (39.6-50.0) % APTT (22.0-30.0) sec BUN (9-20) mg/dL Creatinine (0.66-1.25) mg/dL Glucose (74-99) mg/dL POC Glucose (mg/dL) 202 H (70-110) mg/dL Calcium (8.4-10.2) mg/dL AST (17-59) U/L Alkaline Phosphatase (38-126) U/L Total Protein (6.3-8.2) g/dL Albumin (3.5-5.0) g/dL Assessment and Plan Assessment: Impression: Acute hypoxic respiratory failure Acute on chronic diastolic congestive heart failure Suspect aspiration pneumonia, patient failed swallow evaluation Benign essential hypertension Dyslipidemia Paroxysmal atrial fibrillation Generalized weakness and multiple falls Acute leukocytosis Underlying COPD Mediastinal lymphadenopathy with right hilar and subcarinal adenopathy needs outpatient evaluation Recommendation: Continue oxygen and titrate accordingly Swallow evaluation noted, patient failed the study and now he is n.p.o. Continue Zosyn Continue diuretics Continue IV heparin Continue cardiac meds Continue bronchodilators Prognosis is extremely poor and guarded CODE STATUS is DNR Will continue to follow Time with Patient: Less than 30
[2024-08-21 16:02] LABS: Glucose,Whole Blood 220 mg/dL (70-110)
[2024-08-21 20:00] LABS: Glucose,Whole Blood 198 mg/dL (70-110)
[2024-08-22 06:00] LABS: Glucose,Whole Blood 152 mg/dL (70-110)
[2024-08-22 07:55] LABS: HGB 10.6 g/dL (13.0-17.0); MCH 29.9 pg (27.0-32.0); MCHC 32.1 g/dL (32.0-37.0); Mean Platelet Volume 10.3 fL (9.5-12.2); Platelet Count 456 10*3/uL (140-440); RBC 3.55 10*6/uL (4.40-5.60); RDW 14.5 % (11.5-14.5); WBC 24.68 10*3/uL (4.50-10.00)
--- NOTE | 2024-08-22 08:22 | P.PN ---
Subjective Principal diagnosis: Acute respiratory distress. The patient is an 88-year-old white male who is essentially admitted for acute respiratory failure. Element of COPD with diabetes. Opiate dependence is also noted. He is probably aspirating and has failed a swallowing study. After discussion with the patient we will place him on hospice/comfort care with his agreement. Objective - Vital Signs Vital signs: Vital Signs Temp 97.6 F 08/22/24 03:55 Pulse 113 H 08/22/24 03:55 Resp 20 08/22/24 03:55 BP 112/63 08/22/24 03:55 Pulse Ox 96 08/22/24 03:55 FiO2 Intake & Output 08/21/24 08/22/24 08/22/24 18:59 06:59 18:59 Intake Total 500 Output Total 100 800 Balance 400 -800 Weight 74 kg 72.5 kg Intake: Intake, IV Titration 500 Amount Amiodarone 450 mg In 250 Dextrose 5% in Water 250 ml @ 0.5 MG/MIN 16.667 mls/hr IV .Q15H [facility] Rx#: [id number] Heparin Sod,Pork in 0.45% 250 NaCl 25,000 unit In 0.45 % NaCl 1 250ml.bag @ 18 UNITS/KG/HR 12.042 mls/hr IV .[id number] [facility] Rx#: [id number] Output: Urine 800 Post Void Residual 100 Other: Voiding Method External Catheter External Catheter # Voids 1 # Bowel Movements 1 - Constitutional General appearance: Present: mild distress - EENT Eyes: Absent: abnormal pupil - Neck Neck: Absent: lymphadenopathy - Respiratory Respiratory: bilateral: diminished, wheezing - Cardiovascular Rhythm: regular Heart sounds: normal: S1, S2 Abnormal Heart Sounds: Absent: S3 Gallop - Gastrointestinal General gastrointestinal: Present: soft. Absent: tenderness - Labs CBC & Chem 7: 08/22/24 06:39 08/21/24 05:59 Labs: Abnormal Lab Results - Last 24 Hours (Table) 08/21/24 08/21/24 08/21/24 Range/Units 05:59 11:24 16:00 WBC (4.50-10.00) 10*3/uL RBC (4.40-5.60) 10*6/uL Hgb (13.0-17.0) g/dL Hct (39.6-50.0) % Plt Count (140-440) 10*3/uL BUN 99 H (9-20) mg/dL Creatinine 1.54 H (0.66-1.25) mg/dL Glucose 196 H (74-99) mg/dL POC Glucose (mg/dL) 202 H 220 H (70-110) mg/dL Calcium 8.3 L (8.4-10.2) mg/dL AST 72 H (17-59) U/L Alkaline Phosphatase 152 H (38-126) U/L Total Protein 5.6 L (6.3-8.2) g/dL Albumin 2.8 L (3.5-5.0) g/dL 08/21/24 08/22/24 08/22/24 Range/Units 19:56 05:59 06:39 WBC 24.68 H (4.50-10.00) 10*3/uL RBC 3.55 L (4.40-5.60) 10*6/uL Hgb 10.6 L (13.0-17.0) g/dL Hct 33.0 L (39.6-50.0) % Plt Count 456 H (140-440) 10*3/uL BUN (9-20) mg/dL Creatinine (0.66-1.25) mg/dL Glucose (74-99) mg/dL POC Glucose (mg/dL) 198 H 152 H (70-110) mg/dL Calcium (8.4-10.2) mg/dL AST (17-59) U/L Alkaline Phosphatase (38-126) U/L Total Protein (6.3-8.2) g/dL Albumin (3.5-5.0) g/dL Assessment and Plan (1) Atrial fibrillation Current Visit: Yes Status: Acute Code(s): I48.91 - UNSPECIFIED ATRIAL FIBRILLATION SNOMED Code(s): 24170005 (2) CHF (congestive heart failure) Current Visit: Yes Status: Acute Code(s): I50.9 - HEART FAILURE, UNSPECIFIED SNOMED Code(s): 83521382 (3) Gravely disabled Current Visit: Yes Status: Acute Code(s): YDO7250 - SNOMED Code(s): 169670661 (4) Acute respiratory distress Current Visit: No Status: Acute Code(s): R06.03 - ACUTE RESPIRATORY DISTRESS SNOMED Code(s): 559841364 (5) Bilateral pneumonia Current Visit: No Status: Acute Code(s): J18.9 - PNEUMONIA, UNSPECIFIED ORGANISM SNOMED Code(s): 830235395 (6) CAD (coronary artery disease) Current Visit: No Status: Acute Code(s): I25.10 - ATHSCL HEART DISEASE OF [place] CORONARY ARTERY W/O ANG PCTRS SNOMED Code(s): 87456273 (7) COPD (chronic obstructive pulmonary disease) Current Visit: No Status: Acute Code(s): J44.9 - CHRONIC OBSTRUCTIVE PU LMONARY DISEASE, UNSPECIFIED SNOMED Code(s): 38087934 Plan: Due to his overall poor prognosis given his inability to swallow, we will place on hospice care. The patient is lucid and understands this and is agreeable.
[2024-08-22 08:28] LABS: ALT 33 U/L (4-49); AST 52 U/L (17-59); African American GFR (CKD) 65 (>60 ml/min/1.73 sqM); Albumin 2.7 g/dL (3.5-5.0); Alkaline Phosphatase 135 U/L (38-126); Anion Gap 9 mmol/L; Blood Urea Nitrogen 83 mg/dL (9-20); Calcium 8.1 mg/dL (8.4-10.2); Carbon Dioxide 30 mmol/L (22-30); Chloride 108 mmol/L (98-107); Glucose 155 mg/dL (74-99); Non-African American GFR(CKD) 56 (>60 ml/min/1.73 sqM); Potassium 3.2 mmol/L (3.5-5.1); Sodium 147 mmol/L (137-145); Total Bilirubin 0.8 mg/dL (0.2-1.3); Total Protein 5.7 g/dL (6.3-8.2)
[2024-08-22 11:19] LABS: Glucose,Whole Blood 140 mg/dL (70-110)
--- NOTE | 2024-08-22 11:39 | P.PN ---
Subjective HISTORY OF PRESENT ILLNESS: This is an 88-year-old male patient of Dr. Vasquez with past medical history of carotid artery stenosis, coronary artery disease, hypertension, dyslipidemia. We have been asked to evaluate the patient for heart failure and elevated troponins. Patient presented to the emergency center due to multiple falls, generalized weakness. Patient apparently had 2 falls yesterday and is very difficult for him to get up off the floor. He is having some shortness of breath this morning. Blood pressure 117/69, heart rate 108, pulse ox 92% on 5 L nasal cannula. Patient has been started on IV Lasix 40 mg every 12 hours. -EKG: Sinus rhythm with right bundle branch block. -Chest x-ray: Clinical correlation for heart failure. Pulmonary edema may be present. -Pelvis x-ray: No acute process. -CT brain and cervical spine showed no acute intracranial process and degenerative disc changes of the cervical spine. No acute osseous abnormality. -Laboratory studies: WBC 14.8, hemoglobin 11, sodium 137, potassium 4.5, BUN 51 creatinine 1.12. Troponin 0.720. Alkaline phosphatase 164. -Home cardiac medications: Amlodipine 10 mg daily, atorvastatin 40 mg daily, enalapril 10 mg twice daily, Lasix 20 mg daily, metoprolol tartrate 25 mg twice daily. -Echocardiogram performed 02/09/2022 in the office revealed EF of 55 to 60% with grade 2 diastolic dysfunction. Moderate concentric left ventricular hypertrophy. Mild mitral regurgitation. Mild to moderate tricuspid regurgitation. PASP 42 mmHg. Mild pulmonic regurgitation. -Lexiscan Cardiolite stress test performed in the office on 06/19/2020 revealed negative stress test by EKG criteria. Abnormal nuclear scan showing evidence of prior apical myocardial infarction with preserved LV function without any ischemia. -Cardiac catheterization performed 2008 revealed total occlusion of the mid LAD with very late filling of the mid left anterior descending coronary artery. Diffuse disease in the nondominant right coronary artery and also in the circumflex coronary artery which had moderate disease but noncritical. The left ventricular function was not assessed. Patient subsequently underwent stenting of the totally occluded mid left anterior descending coronary artery in the setting of a subacute myocardial infarction. 08/18 Patient seen and examined. Patient heart rate was up to the 130s around 3 AM in atrial fibrillation and received a dose of metoprolol tartrate 25 mg at that time. Heart rate is still elevated but in the 116 range and blood pressure is low at 92/49, pulse ox 97% on 5 L nasal cannula. Repeat blood work reveals hemoglobin 11.7, WBC 15.7, BUN 53 creatinine 1.13. D-dimer was 1.83. proBNP 11,800. Repeat troponin 0.868. Echocardiogram reveals EF 45 to 50% with mild mitral and tricuspid regurgitation and severe pulmonary hypertension. 08/19 Patient seen and examined. Patient went into A-fib with RVR yesterday afternoon and has been started on amiodarone drip. He remains in atrial fibrillation with heart rate 130. Yesterday, patient was also started on IV antibiotics for pneumonia and is followed by pulmonary medicine. Due to elevated D-dimer, patient was started on high intensity protocol heparin yesterday. CTA was nega tive for PE and the heparin drip was changed to low intensity protocol which we will continue due to new onset of atrial fibrillation. 08/20/2024 Patient examined this morning at the bedside. Patient currently denies chest pain or pressure. He denies shortness of breath. He remains on IV heparin. Telemetry reveals atrial fibrillation with heart rate between [id number]. 08/21/2024 Patient examined this morning at bedside. Patient is currently n.p.o. as he is having episodes of possible aspiration with oral intake. Patient was placed back on IV amiodarone for rate control. Telemetry this morning reveals atrial fibrillation with a heart in the 120s. 08/22/2024 Patient examined this morning at the bedside. Patient's family is present. Patient and his family have decided to pursue hospice. He remains in atrial fibrillation with heart in the 120s. He remains on IV amiodarone and IV hep kathy. PHYSICAL EXAM: VITAL SIGNS: Reviewed. GENERAL: Well-developed in no acute distress. NECK: Supple. No JVD or thyromegaly LUNGS: Respirations even and unlabored. Lungs essentially clear to auscultation bilaterally. HEART: Tachycardic. Irregular rate and rhythm. S1 and S2 heard. EXTREMITIES: Normal range of motion. No clubbing or cyanosis. Peripheral pulses intact. No lower extremity edema ASSESSMENT: Generalized weakness with multiple falls Acute on chronic diastolic heart failure History of coronary artery disease with previous stent to the LAD in 2008 Carotid artery stenosis bilaterally Hypertension Dyslipidemia New onset paroxysmal atrial fibrillation with RVR Elevated D-dimer, CTA negative for PE PLAN: Discontinue IV heparin and IV amiodarone Patient's family is concerned about patient's heart rate. May continue IV push metoprolol at this time and increase frequency to every 6 hours Hospice has been consulted for evaluation We will sign off. Please reconsult if needed. Nurse practitioner note has been reviewed by physician. Signing provider agrees with the documented findings, assessment, and plan of care documented by PATIENT CARE SPECIALIST as a scribe. Objective - Vital Signs Vital signs: Vital Signs Temp 97.5 F L 08/22/24 08:00 Pulse 91 08/22/24 09:22 Resp 16 08/22/24 08:00 BP 105/71 08/22/24 08:00 Pulse Ox 97 08/22/24 09:14 FiO2 Intake & Output 08/21/24 08/22/24 08/22/24 18:59 06:59 18:59 Intake Total 500 Output Total 100 800 Balance 400 -800 Weight 74 kg 72.5 kg Intake: Intake, IV Titration 500 Amount Amiodarone 450 mg In 250 Dextrose 5% in Water 250 ml @ 0.5 MG/MIN 16.667 mls/hr IV .Q15H BUDDY Rx#: [id number] Heparin Sod,Pork in 0.45% 250 NaCl 25,000 unit In 0.45 % NaCl 1 250ml.bag @ 18 UNITS/KG/HR 12.042 mls/hr IV .[id number] BUDDY Rx#: [id number] Output: Urine 800 Post Void Residual 100 Other: Voiding Method External Catheter External Catheter External Catheter # Voids 1 # Bowel Movements 1 - Labs CBC & Chem 7: 08/22/24 06:39 08/22/24 06:39 Labs: Abnormal Lab Results - Last 24 Hours (Table) 08/21/24 08/21/24 08/22/24 Range/Units 16:00 19:56 05:59 WBC (4.50-10.00) 10*3/uL RBC (4.40-5.60) 10*6/uL Hgb (13.0-17.0) g/dL Hct (39.6-50.0) % Plt Count (140-440) 10*3/uL APTT (22.0-30.0) sec Sodium (137-145) mmol/L Potassium (3.5-5.1) mmol/L Chloride (98-107) mmol/L BUN (9-20) mg/dL Glucose (74-99) mg/dL POC Glucose (mg/dL) 220 H 198 H 152 H (70-110) mg/dL Calcium (8.4-10.2) mg/dL Alkaline Phosphatase (38-126) U/L Total Protein (6.3-8.2) g/dL Albumin (3.5-5.0) g/dL 08/22/24 08/22/24 08/22/24 Range/Units 06:39 06:39 06:39 WBC 24.68 H (4.50-10.00) 10*3/uL RBC 3.55 L (4.40-5.60) 10*6/uL Hgb 10.6 L (13.0-17.0) g/dL Hct 33.0 L (39.6-50.0) % Plt Count 456 H (140-440) 10*3/uL APTT 49.3 H (22.0-30.0) sec Sodium 147 H (137-145) mmol/L Potassium 3.2 L (3.5-5.1) mmol/L Chloride 108 H (98-107) mmol/L BUN 83 H (9-20) mg/dL Glucose 155 H (74-99) mg/dL POC Glucose (mg/dL) (70-110) mg/dL Calcium 8.1 L (8.4-10.2) mg/dL Alkaline Phosphatase 135 H (38-126) U/L Total Protein 5.7 L (6.3-8.2) g/dL Albumin 2.7 L (3.5-5.0) g/dL 08/22/24 Range/Units 11:17 WBC (4.50-10.00) 10*3/uL RBC (4.40-5.60) 10*6/uL Hgb (13.0-17.0) g/dL Hct (39.6-50.0) % Plt Count (140-440) 10*3/uL APTT (22.0-30.0) sec Sodium (137-145) mmol/L Potassium (3.5-5.1) mmol/L Chloride (98-107) mmol/L BUN (9-20) mg/dL Glucose (74-99) mg/dL POC Glucose (mg/dL) 140 H (70-110) mg/dL Calcium (8.4-10.2) mg/dL Alkaline Phosphatase (38-126) U/L Total Protein (6.3-8.2) g/dL Albumin (3.5-5.0) g/dL
--- NOTE | 2024-08-22 12:16 | P.PN ---
Subjective Progress Note Date: 08/22/24 Principal diagnosis: Acute hypoxic respiratory failure with acute multifocal pneumonia, consider aspiration pneumonia On 08/18/2024, patient is being seen in consultation for shortness of breath and abnormal chest x-ray. The patient is 88 and is known to have COPD, diabetes jabari litus type 2 coronary artery disease, carotid artery stenosis, hypertension, and hyperlipidemia and based on the previous echocardiogram from 2021, the patient has a preserved LV function with an EF of around 55 to 60% with a grade 2 diastolic heart failure and moderate LVH with mild to moderate pulmonary artery pressure elevation with a PASP of 42. He is known to have nonocclusive coronary artery disease based on a previous cardiac catheterization from 2008. The patient is also known to have a chronic right-sided pleural effusion that has remained stable over the years. The patient has undergone previous thoracentesis of the right lung back in 2022 and this fluid was felt to be a parapneumonic in nature. Interventional radiologist underwent a thoracentesis back then and subsequent chest x-ray continued to show residual effusion with trapped pleural fluid in the right lung base. A repeat chest x-ray that was done during this current admission and there is obvious worsening of with extensive consolidation involving the right lung more dense in the right lung base. Based on that, the patient was given a CTA of the chest that showed no evidence of any pulmonary embolism. There was an extensive patchy consolidation throughout the right lung and the left lower lobe consistent with multifocal pneumonia. There is also development of a right hilar and subcarinal lymphadenopathy which obviously raises suspicion for malignancy. There is a small right-sided pleural effusion and a smaller left-sided pleural effusion. 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 There is background emphysema. The white cell coun t is currently at 16.3 with a hemoglobin 10.6 and a platelet count of 319. Normal coagulation profile. BUN 53 with a Of 1.1. Sodium Level Is 140 with a Potassium Level of 4.3. Viral Screen Was Negative. I Was Also Told That the Patient Is Having Some Difficulties with Swallowing As the Patient Coughs during the Swallow and This Obviously Raises Concern for Aspiration Pneumonia. Patient Was Started on IV Zosyn As an Empiric Antibiotic Coverage. The Patient Also Encountered Atrial Fibrillation with Rapid Ventricular Response at around 3 AM This Morning. The Patient Received Metoprolol 25 Mg at That Time. The Patient Was Started on IV Heparin. He Is Currently on 5 L of Oxygen by Nasal Cannula. Cardiology on the Case. Echocardiogram Repeated Showed an Ejection Fraction of 45 to 50% with Mild MR, and Mild TR with Severe Pulmonary Hypertension. On today's evaluation of 08/19/2024, the patient is slightly improved compared to yesterday. Remains weak and lethargic and continues to be short of breath at rest. Afebrile. The patient's current pulse ox is in order of 93% parties of oxygen by nasal cannula. The patient had extensive bilateral pneumonia and bilateral airspace disease right more than left along with a chronic right-sided pleural effusion. The patient's blood cultures are negative for now. The white cell count is at 20.1 which is higher compared to yesterday with a hemoglobin of 7.8 and a platelet count of 326. Patient also has a sodium level of 141, pota ssium is at 4, bicarbonate 22, BUN 72 with a creatinine of 1.33. TSH is 1.03. Troponins were elevated and proBNP level was also elevated 11,800. Viral screen was negative. The patient remains on broad-spectrum antibiotics. The patient is currently on IV Zosyn. The patient also has a new onset atrial fibrillation. The patient is still slightly tachycardic. Currently on amiodarone drip at 0.5 mg/min and the patient is on IV heparin. IV fluids in the form of normal saline at rate of 50 cc an hour. Swallow evaluation is to be completed in a.m. Patient was seen today on 08/20/2024, patient is not in distress, on 5 L nasal cannula O2 sat is 95% hemodynamically stable, seems to be alert, but slightly confused. Chest x-ray clearly showed bilateral multifocal infiltrates. Continues to have leukocytosis with WBC of 20.15 hemoglobin 10.8 electrolytes are normal however his BUN is 72 creatinine is up to 1.33. BNP level is elevated 11,800 and troponin is also elevated. Remains on heparin for atrial fibrillation heart rate ranging between 100 and 120. Patient was seen today on 08/21/2024, remains marginal at best. Actually his chest x-ray is getting worse, his FiO2 requirement is increasing. He is now on 8 L high flow nasal cannula with marginal O2 sats of 92% patient is tachycardic rate ranging between 108 up to 124. Blood pressure is stable. WBC count is up to 23.29 hemoglobin 10.8 electrolytes are normal BUN is 99 creatinine 1.54, seems to be worsening with diuretics. Patient remains intermittently confused, his chest x-ray showed worsening bilateral airspace disease. Patient failed his swallow evaluation, I believe the patient is experiencing ongoing aspiration pneumonia. Presently n.p.o. as recommended by speech therapy. Patient was seen today on 08/22/2024, patient is about the same, seems to be a bit confused, on 5 L nasal cannula O2 sat is 97%, patient remains n.p.o. because of failing swallow evaluation, remains on antibiotics and on diuretics. Cont inues to have leukocytosis with WBC count is 24.6 hemoglobin 10.6 electrolytes are abnormal sodium 147 potassium 3.2 BUN is 83 creatinine 1.17. Objective - Vital Signs Vital signs: Vital Signs Temp 97.5 F L 08/22/24 08:00 Pulse 91 08/22/24 09:22 Resp 16 08/22/24 08:00 BP 105/71 08/22/24 08:00 Pulse Ox 97 08/22/24 09:14 FiO2 Intake & Output 08/21/24 08/22/24 08/22/24 18:59 06:59 18:59 Intake Total 500 Output Total 100 800 Balance 400 -800 Weight 74 kg 72.5 kg Intake: Intake, IV Titration 500 Amount Amiodarone 450 mg In 250 Dextrose 5% in Water 250 ml @ 0.5 MG/MIN 16.667 mls/hr IV .Q15H BUDDY Rx#: [id number] Heparin Sod,Pork in 0.45% 250 NaCl 25,000 unit In 0.45 % NaCl 1 250ml.bag @ 18 UNITS/KG/HR 12.042 mls/hr IV .[id number] BUDDY Rx#: [id number] Output: Urine 800 Post Void Residual 100 Other: Voiding Method External Catheter External Catheter External Catheter # Voids 1 # Bowel Movements 1 - Exam GENERAL: Revealed 88-year-old white male on 5 L nasal cannula ow nasal cannula Head: Atraumatic, normocephalic PERRLA, EOMI, nonicteric NECK: Supple. No JVD or thyromegaly LUNGS: Crackles, and rhonchi noted bilaterally HEART: Regular rhythm no S3 gallop 2/6 systolic murmur throughout the precordium Abdomen: Soft nontender No rebound no guarding Extremities: No clubbing edema or cyanosis Skin: No rashes Neurologic: Alert oriented x 3 no focal deficit, intermittently confused - Labs CBC & Chem 7: 08/22/24 06:39 08/22/24 06:39 Labs: Abnormal Lab Results - Last 24 Hours (Table) 08/21/24 08/21/24 08/22/24 Range/Units 16:00 19:56 05:59 WBC (4.50-10.00) 10*3/uL RBC (4.40-5.60) 10*6/uL Hgb (13.0-17.0) g/dL Hct (39.6-50.0) % Plt Count (140-440) 10*3/uL APTT (22.0-30.0) sec Sodium (137-145) mmol/L Potassium (3.5-5.1) mmol/L Chloride (98-107) mmol/L BUN (9-20) mg/dL Glucose (74-99) mg/dL POC Glucose (mg/dL) 220 H 198 H 152 H (70-110) mg/dL Calcium (8.4-10.2) mg/dL Alkaline Phosphatase (38-126) U/L Total Protein (6.3-8.2) g/dL Albumin (3.5-5.0) g/dL 08/22/24 08/22/24 08/22/24 Range/Units 06:39 06:39 06:39 WBC 24.68 H (4.50-10.00) 10*3/uL RBC 3.55 L (4.40-5.60) 10*6/uL Hgb 10.6 L (13.0-17.0) g/dL Hct 33.0 L (39.6-50.0) % Plt Count 456 H (140-440) 10*3/uL APTT 49.3 H (22.0-30.0) sec Sodium 147 H (137-145) mmol/L Potassium 3.2 L (3.5-5.1) mmol/L Chloride 108 H (98-107) mmol/L BUN 83 H (9-20) mg/dL Glucose 155 H (74-99) mg/dL POC Glucose (mg/dL) (70-110) mg/dL Calcium 8.1 L (8.4-10.2) mg/dL Alkaline Phosphatase 135 H (38-126) U/L Total Protein 5.7 L (6.3-8.2) g/dL Albumin 2.7 L (3.5-5.0) g/dL 08/22/24 Range/Units 11:17 WBC (4.50-10.00) 10*3/uL RBC (4.40-5.60) 10*6/uL Hgb (13.0-17.0) g/dL Hct (39.6-50.0) % Plt Count (140-440) 10*3/uL APTT (22.0-30.0) sec Sodium (137-145) mmol/L Potassium (3.5-5.1) mmol/L Chloride (98-107) mmol/L BUN (9-20) mg/dL Glucose (74-99) mg/dL POC Glucose (mg/dL) 140 H (70-110) mg/dL Calcium (8.4-10.2) mg/dL Alkaline Phosphatase (38-126) U/L Total Protein (6.3-8.2) g/dL Albumin (3.5-5.0) g/dL Assessment and Plan Assessment: Impression: Acute hypoxic respiratory failure Acute on chronic diastolic congestive heart failure Suspect aspiration pneumonia, patient failed swallow evaluation Benign essential hypertension Dyslipidemia Paroxysmal atrial fibrillation Generalized weakness and multiple falls Acute leukocytosis Underlying COPD Mediastinal lymphadenopathy with right hilar and subcarinal adenopathy needs outpatient evaluation Recommendation: Continue oxygen and titrate accordingly Patient to have repeat swallow evaluation Continue Zosyn Continue diuretics Continue IV heparin Continue cardiac meds Continue bronchodilators Prognosis is extremely poor and guarded CODE STATUS is DNR Will continue to follow Time with Patient: Less than 30
[2024-08-22] MEDS: METOPROLOL TARTRATE 5 MG/5 ML VIAL IVP SCH (12:29)
[2024-08-22 16:18] LABS: Glucose,Whole Blood 167 mg/dL (70-110)
[2024-08-22 20:20] LABS: Glucose,Whole Blood 162 mg/dL (70-110)
[2024-08-22] MEDS: HYDROmorphone 1 MG/ML 1 ML SYRINGE IVP STA (21:27)
[2024-08-23 06:28] LABS: Glucose,Whole Blood 168 mg/dL (70-110)
--- NOTE | 2024-08-23 08:28 | P.PN ---
Subjective Progress Note Date: 08/23/24 This is an 88-year-old male who presented to the emergency department complaints of multiple falls. Patient also reports some increase in shortness of breath. Does not wear oxygen at home during the day however does wear nasal cannula with 2.5 L of oxygen while sleeping. Patient's heart rate has been elevated and he is in A-fib. He remains on a heparin drip. Cardiology and pulmonology are on consult. Patient continues to be short of breath and is currently on 5 liters of oxygen. 08/21/2024 Patient seen this morning lying in bed. Patient continues to have tachycardia. He is now on 8 L of oxygen. Nursing staff concerned for possible aspiration. He has been NPO since yesterday afternoon. Speech therapy will reevaluate this morning. Chest x-ray ordered for this morning. Nursing staff also reports amiodarone drip has been restarted. 08/23/2024 Consult to hospice has been made and family is working on on discharge plan with hospice. Await their final decision. Objective - Vital Signs Vital signs: Vital Signs Temp 97.6 F 08/23/24 03:16 Pulse 71 08/23/24 03:16 Resp 16 08/23/24 03:16 BP 129/82 08/23/24 03:16 Pulse Ox 96 08/23/24 03:16 FiO2 Intake & Output 08/22/24 08/23/24 08/23/24 18:59 06:59 18:59 Output Total 1000 Balance -1000 Weight 70 kg Output: Urine 1000 Other: Voiding Method External Catheter External Catheter # Voids 1 - Labs CBC & Chem 7: 08/22/24 06:39 08/22/24 06:39 Labs: Abnormal Lab Results - Last 24 Hours (Table) 08/22/24 08/22/24 08/22/24 Range/Units 06:39 06:39 11:17 APTT 49.3 H (22.0-30.0) sec Sodium 147 H (137-145) mmol/L Potassium 3.2 L (3.5-5.1) mmol/L Chloride 108 H (98-107) mmol/L BUN 83 H (9-20) mg/dL Glucose 155 H (74-99) mg/dL POC Glucose (mg/dL) 140 H (70-110) mg/dL Calcium 8.1 L (8.4-10.2) mg/dL Alkaline Phosphatase 135 H (38-126) U/L Total Protein 5.7 L (6.3-8.2) g/dL Albumin 2.7 L (3.5-5.0) g/dL 08/22/24 08/22/24 08/23/24 Range/Units 16:17 20:19 06:26 APTT (22.0-30.0) sec Sodium (137-145) mmol/L Potassium (3.5-5.1) mmol/L Chloride (98-107) mmol/L BUN (9-20) mg/dL Glucose (74-99) mg/dL POC Glucose (mg/dL) 167 H 162 H 168 H (70-110) mg/dL Calcium (8.4-10.2) mg/dL Alkaline Phosphatase (38-126) U/L Total Protein (6.3-8.2) g/dL Albumin (3.5-5.0) g/dL Assessment and Plan (1) CHF (congestive heart failure) Current Visit: Yes Status: Acute Code(s): I50.9 - HEART FAILURE, UNSPECIFIED SNOMED Code(s): 78120390 (2) CAD (coronary artery disease) Current Visit: No Status: Acute Code(s): I25.10 - ATHSCL HEART DISEASE OF [place] CORONARY ARTERY W/O ANG PCTRS SNOMED Code(s): 57876834 (3) COPD (chronic obstructive pulmonary disease) Current Visit: No Status: Acute Code(s): J44.9 - CHRONIC OBSTRUCTIVE PULMONARY DISEASE, UNSPECIFIED SNOMED Code(s): 99361259 (4) Diabetes Current Visit: No Status: Acute Code(s): E11.9 - TYPE 2 DIABETES MELLITUS WITHOUT COMPLICATIONS SNOMED Code(s): 09296529 (5) Hypertension Current Visit: No Status: Acute Code(s): I10 - ESSENTIAL (PRIMARY) HYPERTENSION SNOMED Code(s): 66677575 (6) Pneumonia Current Visit: No Status: Acute Code(s): J18.9 - PNEUMONIA, UNSPECIFIED ORGANISM SNOMED Code(s): 146905908 (7) Atrial fibrillation Current Visit: Yes Status: Acute Code(s): I48.91 - UNSPECIFIED ATRIAL FIBRILLATION SNOMED Code(s): 13017001 Plan: Await decision for discharge placement with hospice. Patient seen and evaluated by nurse practitioner, physician in agreement with plan.
[2024-08-23 11:08] LABS: Glucose,Whole Blood 149 mg/dL (70-110)
[2024-08-23] MEDS: HYDROmorphone 1 MG/ML 1 ML SYRINGE IVP PRN (11:32)
--- NOTE | 2024-08-23 13:25 | P.PN ---
Subjective Progress Note Date: 08/23/24 On 08/18/2024, patient is being seen in consultation for shortness of breath and abnormal chest x-ray. The patient is 88 and is known to have COPD, diabetes mellitus type 2 coronary artery disease, carotid artery stenosis, hypertension, and hyperlipidemia and based on the previous echocardiogram from 2021, the patient has a preserved LV function with an EF of around 55 to 60% with a grade 2 diastolic heart failure and moderate LVH with mild to moderate pulmonary artery pressure elevation with a PASP of 42. He is known to have nonocclusive coronary artery disease based on a previous cardiac catheterization from 2008. The patient is also known to have a chronic right-sided pleural effusion that crabtree s remained stable over the years. The patient has undergone previous thoracentesis of the right lung back in 2022 and this fluid was felt to be a parapneumonic in nature. Interventional radiologist underwent a thoracentesis back then and subsequent chest x-ray continued to show residual effusion with trapped pleural fluid in the right lung base. A repeat chest x-ray that was done during this current admission and there is obvious worsening of with extensive consolidation involving the right lung more dense in the right lung base. Based on that, the patient was given a CTA of the chest that showed no evidence of any pulmonary embolism. There was an extensive patchy consolidation throughout the right lung and the left lower lobe consistent with multifocal pneumonia. There is also development of a right hilar and subcarinal lymphadenopathy which obviously raises suspicion for malignancy. There is a small right-sided pleural effusion and a smaller left-sided pleural effusion. 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 There is background emphysema. The white cell count is currently at 16.3 with a hemoglobin 10.6 and a platelet count of 319. Normal coagulation profile. BUN 53 with a Of 1.1. Sodium Level Is 140 with a Potassium Level of 4.3. Viral Screen Was Negative. I Was Also Told That the Patient Is Having Some Difficulties with Swallowing As the Patient Coughs during the Swallow and This Obviously Raises Concern for Aspiration Pneumonia. Patient Was Started on IV Zosyn As an Empiric Antibiotic Coverage. The Patient Also Encountered Atrial Fibrillation with Rapid Ventricular Response at around 3 AM This Morning. The Patient Received Metoprolol 25 Mg at That Time. The Patient Was Started on IV Heparin. He Is Currently on 5 L of Oxygen by Nasal Cannula. Cardiology on the Case. Echocardiogram Repeated Showed an Ejection Fraction of 45 to 50% with Mild MR, and Mild TR with Severe Pulmonary Hypertension. On today's evaluation of 08/19/2024, the patient is slightly improved compared to yesterday. Remains weak and lethargic and continues to be short of breath at rest. Afebrile. The patient's current pulse ox is in order of 93% parties of oxygen by nasal cannula. The patient had extensive bilateral pneumonia and bilateral airspace disease right more than left along with a chronic right-sided pleural effusion. The patient's blood cultures are negative for now. The white cell count is at 20.1 which is higher compared to yesterday with a hemoglobin of 7.8 and a platelet count of 326. Patient also has a sodium level of 141, potassium is at 4, bicarbonate 22, BUN 72 with a creatinine of 1.33. TSH is 1.03. Troponins were elevated and proBNP level was also elevated 11,800. Viral screen was negative. The patient remains on broad-spectrum antibiotics. The patient is currently on IV Zosyn. The patient also has a new onset atrial fibrillation. The patient is still slightly tachycardic. Currently on amiodarone drip at 0.5 mg/min and the patient is on IV heparin. IV fluids in the form of normal saline at rate of 50 cc an hour. Swallow evaluation is to be completed in a.m. Patient was seen today on 08/20/2024, patient is not in distress, on 5 L nasal cannula O2 sat is 95% hemodynamically stable, seems to be alert, but slightly confused. Chest x-ray clearly showed bilateral multifocal infiltrates. Continues to have leukocytosis with WBC of 20.15 hemoglobin 10.8 electrolytes are normal however his BUN is 72 creatinine is up to 1.33. BNP level is elevated 11,800 and troponin is also elevated. Remains on heparin for atrial fibrillation heart rate ranging between 100 and 120. Patient was seen today on 08/21/2024, remains marginal at best. Actually his chest x-ray is getting worse, his FiO2 requirement is increasing. He is now on 8 L high flow nasal cannula with marginal O2 sats of 92% patient is tachycardic rate ranging between 108 up to 124. Blood pressure is stable. WBC count is up to 23.29 hemoglobin 10.8 electrolytes are normal BUN is 99 creatinine 1.54, seems to be worsening with diuretics. Patient remains intermittently confused, his chest x-ray showed worsening bilateral airspace disease. Patient failed his swallow evaluation, I believe the patient is experiencing ongoing aspiration pneumonia. Presently n.p.o. as recommended by speech therapy. Patient was seen today on 08/22/2024, patient is about the same, seems to be a bit confused, on 5 L nasal cannula O2 sat is 97%, patient remains n.p.o. because of failing swallow evaluation, remains on antibiotics and on diuretics. Continues to have leukocytosis with WBC count is 24.6 hemoglobin 10.6 electrolytes are abnormal sodium 147 potassium 3.2 BUN is 83 creatinine 1.17. The patient is seen today August 23, 2024 in follow-up on the selective care unit. He is currently resting in bed. He is quite weak and debilitated. He is requiring 5 L high flow nasal cannula to maintain O2 saturations in the 90s. He remains nothing by mouth as he did not pass his swallow evaluation. Glucose 149. He remains on oral diuretics. Remains on Zosyn. Objective - Vital Signs Vital signs: Vital Signs Temp 97.6 F 08/23/24 08:00 Pulse 124 H 08/23/24 12:03 Resp 16 08/23/24 08:00 BP 130/68 08/23/24 08:00 Pulse Ox 98 08/23/24 08:47 FiO2 Intake & Output 08/22/24 08/23/24 08/23/24 18:59 06:59 18:59 Output Total 1000 Balance -1000 Weight 70 kg Output: Urine 1000 Other: Voiding Method External Catheter External Catheter External Catheter # Voids 1 - Exam GENERAL EXAM: Alert, very weak, debilitated 88-year-old male, on 5 L high flow nasal cannula, in no apparent distress. HEAD: Normocephalic. EYES: Normal reaction of pupils, equal size. NOSE: Clear with pink turbinates. THROAT: No erythema or exudates. NECK: No masses, no JVD. CHEST: No chest wall deformity. LUNGS: Equal air entry with bilateral scattered rhonchi, few crackles. CVS: S1 and S2 normal with no audible murmur, regular rhythm. ABDOMEN: No hepatosplenomegaly, normal bowel sounds, no guarding or rigidity. SPINE: No scoliosis or deformity SKIN: No rashes CENTRAL NERVOUS SYSTEM: No focal deficits, tone is normal in all 4 extremities. EXTREMITIES: There is no peripheral edema. No clubbing, no cyanosis. Peripheral pulses are intact. - Labs CBC & Chem 7: 08/22/24 06:39 08/22/24 06:39 Labs: Abnormal Lab Results - Last 24 Hours (Table) 08/22/24 08/22/24 08/23/24 Range/Units 16:17 20:19 06:26 POC Glucose (mg/dL) 167 H 162 H 168 H (70-110) mg/dL 08/23/24 Range/Units 11:07 POC Glucose (mg/dL) 149 H (70-110) mg/dL Assessment and Plan Assessment: Acute hypoxic respiratory failure Acute on chronic diastolic congestive heart failure Suspect aspiration pneumonia, patient failed swallow evaluation Benign essential hypertension Dyslipidemia Paroxysmal atrial fibrillation Generalized weakness and multiple falls Acute leukocytosis Underlying COPD Mediastinal lymphadenopathy with right hilar and subcarinal adenopathy needs outpatient evaluation Plan: The patient was seen and evaluated Labs and medications reviewed Remains n.p.o. Did not pass a swallow eval Would most likely need PEG tube placement The patient is showing failure to thrive Currently on Zosyn Currently on diuretics Prognosis remains poor DNR CODE STATUS Family is considering hospice I have personally seen and examined the patient, performed the documentation and the assessment and plan as written. Number of minutes spent on the visit: 10 Dictation was produced using [employer] dictation software. Please excuse any grammatical, word or spelling errors.
[2024-08-23 14:37] VITALS: BMI 22.1
[2024-08-23 16:48] LABS: Glucose,Whole Blood 159 mg/dL (70-110)
[2024-08-23 20:24] LABS: Glucose,Whole Blood 170 mg/dL (70-110)
[2024-08-23 21:38] VITALS: TEMP 97.9
[2024-08-24 05:30] LABS: Glucose,Whole Blood 203 mg/dL (70-110)
[2024-08-24] MEDS: FUROSEMIDE 10 MG/ML 4 ML VIAL IV STA (05:34)
[2024-08-24 08:18] VITALS: BP 111/68; RESP 18
[2024-08-24 09:23] LABS: HCT 31.8 % (39.6-50.0); HGB 10.1 g/dL (13.0-17.0); MCH 30.3 pg (27.0-32.0); MCHC 31.8 g/dL (32.0-37.0); MCV 95.5 fL (80.0-97.0); Mean Platelet Volume 10.2 fL (9.5-12.2); Platelet Count 474 10*3/uL (140-440); RBC 3.33 10*6/uL (4.40-5.60); RDW 15.2 % (11.5-14.5); WBC 23.96 10*3/uL (4.50-10.00)
[2024-08-24 09:34] LABS: ALT 49 U/L (4-49); AST 69 U/L (17-59); African American GFR (CKD) 50 (>60 ml/min/1.73 sqM); Albumin 2.9 g/dL (3.5-5.0); Alkaline Phosphatase 145 U/L (38-126); Anion Gap 13 mmol/L; Blood Urea Nitrogen 81 mg/dL (9-20); Calcium 8.6 mg/dL (8.4-10.2); Carbon Dioxide 32 mmol/L (22-30); Chloride 111 mmol/L (98-107); Glucose 163 mg/dL (74-99); Non-African American GFR(CKD) 44 (>60 ml/min/1.73 sqM); Potassium 3.4 mmol/L (3.5-5.1); Sodium 156 mmol/L (137-145); Total Bilirubin 0.7 mg/dL (0.2-1.3); Total Protein 6.2 g/dL (6.3-8.2)
[2024-08-24] MEDS: FUROSEMIDE 10 MG/ML 2 ML VIAL IV ONE (10:53)
--- NOTE | 2024-08-24 11:01 | P.DS ---
Providers Date of admission: 08/16/24 22:34 Expected date of discharge: 08/24/24 Attending physician: Dante Koch Consults: 08/18/24 09:00 Consult Physician Routine Consulting Provider: Chalo Coyle Consult Reason/Comments: acute hypoxic resp failure Do you want consulting provider notified?: Yes Primary care physician: Dante Koch Hospital Course: Discharge diagnoses; #Acute on chronic systolic congestive heart failure #New onset paroxysmal A-fib with RVR #CHF preserved EF 45-50% #Severe pulmonary hypertension #Elevated troponin likely due to type II myocardial infarction in setting of CHF exacerbation #CAD with previous stent #Acute hypoxic respiratory failure likely secondary to CHF exacerbation #Suspect aspiration pneumonia #Leukocytosis, likely reactive #COPD #Multiple falls, likely secondary to hypoxemia from above #Diabetes mellitus, type 2 #Hypertension Hospital course; History of present illness; Patient is 88-year-old male with CAD, carotid artery stenosis, hypertension, dyslipidemia, COPD who presents with multiple falls. Patient states that yesterday he had fallen backwards twice while attempting to turn. During time of fall he had no loss of consciousness or other symptoms including palpitations, chest pain, diaphoresis, dizziness. He does attest to some shortness of breath which typically improves when he has up and ambulating, and at times can worsen while laying flat. He does not wear oxygen at home during the day, however wears nasal cannula 2.5 L oxygen while sleeping. He denies recent fever or coughing. During hospital stay patient was seen by cardiology and by pulmonology. He continues to have acute hypoxic respiratory failure requiring oxygen, and continue to decline during stay. Did not pass swallow evaluations and was NPO. He also had CHF exacerbation, and A-fib with RVR and multiple falls and was seen by cardiology. Decision was made to move forward with hospice. Patient discharged in fair condition to hospice. He may continue Lasix daily and Cipro for 5 days and amiodarone, will allow hospice and family to make final determinations about deprescribing and further comfort care measures. PHYSICAL EXAMINATION: Vitals reviewed GENERAL: Moderate distress in bed CARDIOVASCULAR: S1 and S2 present. No murmurs, rubs, or gallops. PULMONARY: Crackles present bilaterally, no wheezing or rhonchi ABDOMEN: Soft, nontender, nondistended. No palpable organomegaly. EXTREMITIES: No apparent cyanosis, clubbing. No pedal edema NEUROLOGICAL: Gross neurological examination with no apparent focal deficits. SKIN: No apparent rashes. Dr. Saez seen patient with resident, present during exam, and agreed with findings. Dictation was produced using [employer] dictation software. please excuse any grammatical, word or spelling errors. Patient Condition at Discharge: Fair Plan - Discharge Summary Discharge Rx Participant: No New Discharge Prescriptions: New Ciprofloxacin HCl [Cipro] 750 mg PO Q12H 1 Days #10 tab Furosemide [Lasix] 40 mg PO DAILY tab Amiodarone [Cordarone] 400 mg PO BID #30 tab Continue Insulin Glargine,Hum.rec.anlog [Lantus Solostar Pen] 20 units SQ DAILY amLODIPine [Norvasc] 10 mg PO DAILY Metoprolol Tartrate [Lopressor] 25 mg PO BID Enalapril [Vasotec] 10 mg PO BID Atorvastatin [Lipitor] 40 mg PO DAILY Albuterol Nebulized [Ventolin Nebulized] 2.5 mg INHALATION RT-Q6H PRN PRN Reason: Shortness Of Breath Insulin Aspart [NovoLOG Flexpen] 11 units SQ AC-TID HYDROcodone/APAP 10-325MG [[place] 10-325] 1 tab PO Q6H PRN PRN Reason: Pain Gabapentin [Neurontin] 300 mg PO QID Albuterol Inhaler [Ventolin Hfa Inhaler] 2 puff INHALATION RT-QID glipiZIDE [Glucotrol] 5 mg PO AC-BID Discontinued Furosemide [Lasix] 20 mg PO DAILY Discharge Medication List Atorvastatin [Lipitor] 40 mg PO DAILY 04/26/21 [History] Enalapril [Vasotec] 10 mg PO BID 04/26/21 [History] Gabapentin [Neurontin] 300 mg PO QID 04/26/21 [History] HYDROcodone/APAP 10-325MG [[place] 10-325] 1 tab PO Q6H PRN 04/26/21 [History] Insulin Aspart [NovoLOG Flexpen] 11 units SQ AC-TID 04/26/21 [History] Insulin Glargine,Hum.rec.anlog [Lantus Solostar Pen] 20 units SQ DAILY 04/26/21 [History] Metoprolol Tartrate [Lopressor] 25 mg PO BID 04/26/21 [History] amLODIPine [Norvasc] 10 mg PO DAILY 04/26/21 [History] Albuterol Inhaler [Ventolin Hfa Inhaler] 2 puff INHALATION RT-QID 06/07/22 [History] Albuterol Nebulized [Ventolin Nebulized] 2.5 mg INHALATION RT-Q6H PRN 08/17/24 [History] glipiZIDE [Glucotrol] 5 mg PO AC-BID 08/17/24 [History] Amiodarone [Cordarone] 400 mg PO BID #30 tab 08/24/24 [Rx] Ciprofloxacin HCl [Cipro] 750 mg PO Q12H 1 Days #10 tab 08/24/24 [Rx] Furosemide [Lasix] 40 mg PO DAILY tab 08/24/24 [Rx] Follow up Appointment(s)/Referral(s): Dante Koch MD [Primary Care Provider] - 1-2 days Discharge Disposition: DISCH TO [facility]
[2024-08-24 11:51] VITALS: PULSE 134
--- NOTE | 2024-08-24 14:16 | P.PN ---
Subjective Progress Note Date: 08/24/24 Principal diagnosis: Acute hypoxic respiratory failure with acute multifocal pneumonia, consider aspiration pneumonia On 08/18/2024, patient is being seen in consultation for shortness of breath and abnormal chest x-ray. The patient is 88 and is known to have COPD, diabetes jabari litus type 2 coronary artery disease, carotid artery stenosis, hypertension, and hyperlipidemia and based on the previous echocardiogram from 2021, the patient has a preserved LV function with an EF of around 55 to 60% with a grade 2 diastolic heart failure and moderate LVH with mild to moderate pulmonary artery pressure elevation with a PASP of 42. He is known to have nonocclusive coronary artery disease based on a previous cardiac catheterization from 2008. The patient is also known to have a chronic right-sided pleural effusion that has remained stable over the years. The patient has undergone previous thoracentesis of the right lung back in 2022 and this fluid was felt to be a parapneumonic in nature. Interventional radiologist underwent a thoracentesis back then and subsequent chest x-ray continued to show residual effusion with trapped pleural fluid in the right lung base. A repeat chest x-ray that was done during this current admission and there is obvious worsening of with extensive consolidation involving the right lung more dense in the right lung base. Based on that, the patient was given a CTA of the chest that showed no evidence of any pulmonary embolism. There was an extensive patchy consolidation throughout the right lung and the left lower lobe consistent with multifocal pneumonia. There is also development of a right hilar and subcarinal lymphadenopathy which obviously raises suspicion for malignancy. There is a small right-sided pleural effusion and a smaller left-sided pleural effusion. 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 There is background emphysema. The white cell coun t is currently at 16.3 with a hemoglobin 10.6 and a platelet count of 319. Normal coagulation profile. BUN 53 with a Of 1.1. Sodium Level Is 140 with a Potassium Level of 4.3. Viral Screen Was Negative. I Was Also Told That the Patient Is Having Some Difficulties with Swallowing As the Patient Coughs during the Swallow and This Obviously Raises Concern for Aspiration Pneumonia. Patient Was Started on IV Zosyn As an Empiric Antibiotic Coverage. The Patient Also Encountered Atrial Fibrillation with Rapid Ventricular Response at around 3 AM This Morning. The Patient Received Metoprolol 25 Mg at That Time. The Patient Was Started on IV Heparin. He Is Currently on 5 L of Oxygen by Nasal Cannula. Cardiology on the Case. Echocardiogram Repeated Showed an Ejection Fraction of 45 to 50% with Mild MR, and Mild TR with Severe Pulmonary Hypertension. On today's evaluation of 08/19/2024, the patient is slightly improved compared to yesterday. Remains weak and lethargic and continues to be short of breath at rest. Afebrile. The patient's current pulse ox is in order of 93% parties of oxygen by nasal cannula. The patient had extensive bilateral pneumonia and bilateral airspace disease right more than left along with a chronic right-sided pleural effusion. The patient's blood cultures are negative for now. The white cell count is at 20.1 which is higher compared to yesterday with a hemoglobin of 7.8 and a platelet count of 326. Patient also has a sodium level of 141, pota ssium is at 4, bicarbonate 22, BUN 72 with a creatinine of 1.33. TSH is 1.03. Troponins were elevated and proBNP level was also elevated 11,800. Viral screen was negative. The patient remains on broad-spectrum antibiotics. The patient is currently on IV Zosyn. The patient also has a new onset atrial fibrillation. The patient is still slightly tachycardic. Currently on amiodarone drip at 0.5 mg/min and the patient is on IV heparin. IV fluids in the form of normal saline at rate of 50 cc an hour. Swallow evaluation is to be completed in a.m. Patient was seen today on 08/20/2024, patient is not in distress, on 5 L nasal cannula O2 sat is 95% hemodynamically stable, seems to be alert, but slightly confused. Chest x-ray clearly showed bilateral multifocal infiltrates. Continues to have leukocytosis with WBC of 20.15 hemoglobin 10.8 electrolytes are normal however his BUN is 72 creatinine is up to 1.33. BNP level is elevated 11,800 and troponin is also elevated. Remains on heparin for atrial fibrillation heart rate ranging between 100 and 120. Patient was seen today on 08/21/2024, remains marginal at best. Actually his chest x-ray is getting worse, his FiO2 requirement is increasing. He is now on 8 L high flow nasal cannula with marginal O2 sats of 92% patient is tachycardic rate ranging between 108 up to 124. Blood pressure is stable. WBC count is up to 23.29 hemoglobin 10.8 electrolytes are normal BUN is 99 creatinine 1.54, seems to be worsening with diuretics. Patient remains intermittently confused, his chest x-ray showed worsening bilateral airspace disease. Patient failed his swallow evaluation, I believe the patient is experiencing ongoing aspiration pneumonia. Presently n.p.o. as recommended by speech therapy. Patient was seen today on 08/22/2024, patient is about the same, seems to be a bit confused, on 5 L nasal cannula O2 sat is 97%, patient remains n.p.o. because of failing swallow evaluation, remains on antibiotics and on diuretics. Cont inues to have leukocytosis with WBC count is 24.6 hemoglobin 10.6 electrolytes are abnormal sodium 147 potassium 3.2 BUN is 83 creatinine 1.17. Patient was seen today on 08/24/2024, basically about the same, remains confused, on 5 L nasal cannula, my understanding is the patient may be set up for hospice today. Objective - Vital Signs Vital signs: Vital Signs Temp 97.9 F 08/23/24 20:00 Pulse 134 H 08/24/24 11:49 Resp 18 08/24/24 08:15 BP 111/68 08/24/24 08:15 Pulse Ox 92 L 08/24/24 08:15 FiO2 Intake & Output 08/23/24 08/24/24 08/24/24 18:59 06:59 18:59 Output Total 450 Balance -450 Weight 70 kg Output: Urine 450 Other: Voiding Method External Catheter Diaper Diaper - Exam GENERAL: Revealed 88-year-old white male on 5 L nasal cannula ow nasal cannula Head: Atraumatic, normocephalic PERRLA, EOMI, nonicteric NECK: Supple. No JVD or thyromegaly LUNGS: Crackles, and rhonchi noted bilaterally HEART: Regular rhythm no S3 gallop 2/6 systolic murmur throughout the precordium Abdomen: Soft nontender No rebound no guarding Extremities: No clubbing edema or cyanosis Skin: No rashes Neurologic: Alert oriented x 3 no focal deficit, intermittently confused - Labs CBC & Chem 7: 08/24/24 08:56 08/24/24 08:56 Labs: Abnormal Lab Results - Last 24 Hours (Table) 08/23/24 08/23/24 08/24/24 Range/Units 16:46 20:20 05:28 WBC (4.50-10.00) 10*3/uL RBC (4.40-5.60) 10*6/uL Hgb (13.0-17.0) g/dL Hct (39.6-50.0) % MCHC (32.0-37.0) g/dL Plt Count (140-440) 10*3/uL Sodium (137-145) mmol/L Potassium (3.5-5.1) mmol/L Chloride (98-107) mmol/L Carbon Dioxide (22-30) mmol/L BUN (9-20) mg/dL Creatinine (0.66-1.25) mg/dL Glucose (74-99) mg/dL POC Glucose (mg/dL) 159 H 170 H 203 H (70-110) mg/dL AST (17-59) U/L Alkaline Phosphatase (38-126) U/L Total Protein (6.3-8.2) g/dL Albumin (3.5-5.0) g/dL 08/24/24 08/24/24 Range/Units 08:56 08:56 WBC 23.96 H (4.50-10.00) 10*3/uL RBC 3.33 L (4.40-5.60) 10*6/uL Hgb 10.1 L (13.0-17.0) g/dL Hct 31.8 L (39.6-50.0) % MCHC 31.8 L (32.0-37.0) g/dL Plt Count 474 H (140-440) 10*3/uL Sodium 156 H (137-145) mmol/L Potassium 3.4 L (3.5-5.1) mmol/L Chloride 111 H (98-107) mmol/L Carbon Dioxide 32 H (22-30) mmol/L BUN 81 H (9-20) mg/dL Creatinine 1.44 H (0.66-1.25) mg/dL Glucose 163 H (74-99) mg/dL POC Glucose (mg/dL) (70-110) mg/dL AST 69 H (17-59) U/L Alkaline Phosphatase 145 H (38-126) U/L Total Protein 6.2 L (6.3-8.2) g/dL Albumin 2.9 L (3.5-5.0) g/dL Assessment and Plan Assessment: Impression: Acute hypoxic respiratory failure Acute on chronic diastolic congestive heart failure Suspect aspiration pneumonia, patient failed swallow evaluation Benign essential hypertension Dyslipidemia Paroxysmal atrial fibrillation Generalized weakness and multiple falls Acute leukocytosis Underlying COPD Mediastinal lymphadenopathy with right hilar and subcarinal adenopathy needs outpatient evaluation Recommendation: Fully agree with hospice care CODE STATUS is DNR Time with Patient: Less than 30
== END 2024-08-24 12:57 | disposition hospice, inpatient (51) | DRG 280 ==
LOC: EC 19:29 → 3SCARD 22:34
PROVIDERS: ADMIT Family Medicine; ATTEND Family Medicine
DX: I11.0 Hypertensive heart disease with heart failure (principal); I50.43 Acute on chronic combined systolic (congestive) and diastolic (congestive) heart failure; I21.A1 Myocardial infarction type 2; J69.0 Pneumonitis due to inhalation of food and vomit; J96.01 Acute respiratory failure with hypoxia; J44.0 Chronic obstructive pulmonary disease with (acute) lower respiratory infection; R13.10 Dysphagia, unspecified; I27.20 Pulmonary hypertension, unspecified; F32.A Depression, unspecified; I65.23 Occlusion and stenosis of bilateral carotid arteries; I07.1 Rheumatic tricuspid insufficiency; J43.9 Emphysema, unspecified; I48.0 Paroxysmal atrial fibrillation; Z79.4 Long term (current) use of insulin; R59.1 Generalized enlarged lymph nodes; R53.81 Other malaise; F41.9 Anxiety disorder, unspecified; E78.5 Hyperlipidemia, unspecified; Z51.5 Encounter for palliative care; Z66 Do not resuscitate; I25.2 Old myocardial infarction; I25.10 Atherosclerotic heart disease of native coronary artery without angina pectoris; I45.10 Unspecified right bundle-branch block; R29.6 Repeated falls; Z77.090 Contact with and (suspected) exposure to asbestos; Z79.82 Long term (current) use of aspirin; Z79.84 Long term (current) use of oral hypoglycemic drugs; Z79.899 Other long term (current) drug therapy; Z95.5 Presence of coronary angioplasty implant and graft
CPT/HCPCS: 36415; 70450; 71045; 71046; 71275; 72125; 72170; 80048; 80053; 81001; 83735; 83880; 84443; 84484; 85025; 85027; 85379; 85610; 85730; 87636; 93005; 93306; 94640; 94760; 96374; 99291